=== PATIENT | male | born 1975 | race Caucasian/White ===

== ENCOUNTER 2016-09-17 11:37 | Emergency (ER) | payer OTHER ==
[2016-09-17 12:06] VITALS: TEMP 98.6
[2016-09-17] MEDS ORDERED: SODIUM CHLORIDE 0.9% 1,000 ML IV STA (12:14)
[2016-09-17 12:29] LABS: Basophils # (A) 0.1 k/uL (0-0.2); Basophils % (A) 1 %; CH 32.7; CHCM 36.3; Eosinophils # (A) 0.2 k/uL (0-0.7); Eosinophils % (A) 3 %; HCT 46.4 % (39.0-53.0); HDW 2.91; HGB 16.1 gm/dL (13.0-17.5); Luc # (Auto) 0.15; Luc % (Auto) 2; Lymphocytes # (A) 0.9 k/uL (1.0-4.8); Lymphocytes % (A) 11 %; MCH 31.4 pg (25.0-35.0); MCHC 34.7 g/dL (31.0-37.0); MCV 90.3 fL (80.0-100.0); Mean Platelet Volume 6.5; Monocytes # (A) 0.7 k/uL (0-1.0); Monocytes % (A) 9 %; Neutrophils # (A) 5.9 k/uL (1.3-7.7); Neutrophils % (A) 75 %; RBC 5.14 m/uL (4.30-5.90); RDW 13.3 % (11.5-15.5); WBC 7.8 k/uL (3.8-10.6); WBC (Perox) 6.95
[2016-09-17 12:30] VITALS: RESP 18
--- NOTE | 2016-09-17 12:42 | ED ---
General Adult HPI - General Chief complaint: Syncope Stated complaint: SYNCOPE, DIZZINESS, WEAKNESS Time Seen by Provider: 09/17/16 12:13 Source: patient, RN notes reviewed, old records reviewed Mode of arrival: wheelchair Limitations: no limitations - History of Present Illness Initial comments: This is a 41-year-old male to the ER for evaluation. This patient presents for evaluation of syncopal event. Patient states he does have history of syncope, also has history of psych but denies trauma from syncope. Patient is time denies complaints of headache chest pain Thorp of breath or abdominal pain. No change in medications. At this time patient has no symptoms - Related Data Home Medications Medication Instructions Recorded Confirmed Ibuprofen [Motrin] 800 mg PO DAILY PRN 08/13/16 09/17/16 Loratadine [Claritin] 10 mg PO DAILY 08/13/16 09/17/16 Venlafaxine HCl [Effexor] 37.5 mg PO BID 08/13/16 09/17/16 Allergies Allergy/AdvReac Type Severity Reaction Status Date / Time No Known Allergies Allergy Verified 09/17/16 12:38 Review of Systems ROS Statement: Those systems with pertinent positive or pertinent negative responses have been documented in the HPI. ROS Other: All systems not noted in ROS Statement are negative. Past Medical History Past Medical History: No Reported History Additional Past Medical History / Comment(s): SEE DR KULDIP Carrillo, HX OF LEFT ORBITAL FX,. Patient has a history of headaches and fainting for the past year History of Any Multi-Drug Resistant Organisms: None Reported Past Surgical History: Orthopedic Surgery, Tonsillectomy Additional Past Surgical History / Comment(s): 01/2015 LEFT ORBIT PLATES AT [facility], 11/25/08 pins and plates to left ankle after a fall injury, L knee arthroscopy, "wandering" left eye surgically repaired. Past Anesthesia/Blood Transfusion Reactions: No Reported Reaction Additional Past Anesthesia/Blood Transfusion Reaction / Comment(s): Pt has never received blood. Past Psychological History: Depression Additional Psychological History / Comment(s): STATES NO CURRENT MEDICATION Smoking Status: Current every day smoker Past Alcohol Use History: Occasional Additional Past Alcohol Use History / Comment(s): Patient is a smoker of one half to one pack of cigarettes per day since he was 13 years of age. He states he drinks 15 beers per week on Saturdays and Sundays only. Patient states he used cocaine a couple weeks ago. He is single he does not have any children. Past Drug Use History: Cocaine, Marijuana Additional Drug Use History / Comment(s): STATES PAST COCAINE USE, CURRENTLY USES MARIJUANA EVERY COUPLE DAYS - Past Family History Brother(s) Additional Family Medical History / Comment(s): He has one brother which he has no contact with. Father Family Medical History: COPD, Coronary Artery Disease (CAD) Additional Family Medical History / Comment(s): Father at age 73yrs. Mother Family Medical History: Seizure Disorder Additional Family Medical History / Comment(s): Mother was manic/depressive. She at age 51yrs. General Exam Limitations: no limitations General appearance: alert, in no apparent distress Head exam: Present: atraumatic, normocephalic, normal inspection Eye exam: Present: normal appearance, PERRL, EOMI. Absent: scleral icterus, conjunctival injection, periorbital swelling ENT exam: Present: normal exam, mucous membranes moist Neck exam: Present: normal inspection. Absent: tenderness, meningismus, lymphadenopathy Respiratory exam: Present: normal lung sounds bilaterally. Absent: respiratory distress, wheezes, rales, rhonchi, stridor Cardiovascular Exam: Present: regular rate, normal rhythm, normal heart sounds. Absent: systolic murmur, diastolic murmur, rubs, gallop, clicks GI/Abdominal exam: Present: soft, normal bowel sounds. Absent: distended, tenderness, guarding, rebound, rigid Extremities exam: Present: normal inspection, full ROM, normal capillary refill. Absent: tenderness, pedal edema, joint swelling, calf tenderness Back exam: Present: normal inspection Neurological exam: Present: alert, oriented X3, CN II-XII intact Psychiatric exam: Present: normal affect, normal mood Skin exam: Present: warm, dry, intact, normal color. 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 No significant diagnosis found EKG Findings - EKG Comments: EKG Findings:: EKG shows normal sinus at rate of 98, CO 144, QRS 80, QTC 426 Medical Decision Making - Medical Decision Making 23 ER for evaluation. Patient is currently a evaluation of syncopal event, history of multiple similar events. 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 Patient's labwork is normal and can be discharged home - Lab Data Result diagrams: 09/17/16 12:15 09/17/16 12:15 Lab Results 09/17/16 09/17/16 09/17/16 Range/Units 12:15 12:15 12:15 WBC 7.8 (3.8-10.6) k/uL RBC 5.14 (4.30-5.90) m/uL Hgb 16.1 (13.0-17.5) gm/dL Hct 46.4 (39.0-53.0) % MCV 90.3 (80.0-100.0) fL MCH 31.4 (25.0-35.0) pg MCHC 34.7 (31.0-37.0) g/dL RDW 13.3 (11.5-15.5) % Plt Count 223 (150-450) k/uL Neutrophils % 75 % Lymphocytes % 11 % Monocytes % 9 % Eosinophils % 3 % Basophils % 1 % Neutrophils # 5.9 (1.3-7.7) k/uL Lymphocytes # 0.9 L (1.0-4.8) k/uL Monocytes # 0.7 (0-1.0) k/uL Eosinophils # 0.2 (0-0.7) k/uL Basophils # 0.1 (0-0.2) k/uL PT (9.0-12.0) sec INR (<1.1) APTT (22.0-30.0) sec D-Dimer (<0.60) mg/L FEU Sodium 141 (137-145) mmol/L Potassium 3.8 (3.5-5.1) mmol/L Chloride 108 H (98-107) mmol/L Carbon Dioxide 25 (22-30) mmol/L Anion Gap 8 mmol/L BUN 14 (9-20) mg/dL Creatinine 1.00 (0.66-1.25) mg/dL Est GFR (MDRD) Af Amer >60 (>60 ml/min/1.73 sqM) Est GFR (MDRD) Non-Af >60 (>60 ml/min/1.73 sqM) Glucose 117 H (74-99) mg/dL Calcium 9.0 (8.4-10.2) mg/dL Phosphorus 2.9 (2.5-4.5) mg/dL Magnesium 1.8 (1.6-2.3) mg/dL Total Bilirubin 0.4 (0.2-1.3) mg/dL AST 30 (17-59) U/L ALT 68 (21-72) U/L Alkaline Phosphatase 59 (38-126) U/L Total Creatine Kinase 56 (55-170) U/L CK-MB (CK-2) 0.6 (0.0-2.4) ng/mL CK-MB (CK-2) Rel Index 1.1 Troponin I <0.012 (0.000-0.034) ng/mL Total Protein 6.1 L (6.3-8.2) g/dL Albumin 3.6 (3.5-5.0) g/dL 09/17/16 Range/Units 12:15 WBC (3.8-10.6) k/uL RBC (4.30-5.90) m/uL Hgb (13.0-17.5) gm/dL Hct (39.0-53.0) % MCV (80.0-100.0) fL MCH (25.0-35.0) pg MCHC (31.0-37.0) g/dL RDW (11.5-15.5) % Plt Count (150-450) k/uL Neutrophils % % Lymphocytes % % Monocytes % % Eosinophils % % Basophils % % Neutrophils # (1.3-7.7) k/uL Lymphocytes # (1.0-4.8) k/uL Monocytes # (0-1.0) k/uL Eosinophils # (0-0.7) k/uL Basophils # (0-0.2) k/uL PT 9.5 (9.0-12.0) sec INR 0.9 (<1.1) APTT 24.3 (22.0-30.0) sec D-Dimer 0.18 (<0.60) mg/L FEU Sodium (137-145) mmol/L Potassium (3.5-5.1) mmol/L Chloride (98-107) mmol/L Carbon Dioxide (22-30) mmol/L Anion Gap mmol/L BUN (9-20) mg/dL Creatinine (0.66-1.25) mg/dL Est GFR (MDRD) Af Amer (>60 ml/min/1.73 sqM) Est GFR (MDRD) Non-Af (>60 ml/min/1.73 sqM) Glucose (74-99) mg/dL Calcium (8.4-10.2) mg/dL Phosphorus (2.5-4.5) mg/dL Magnesium (1.6-2.3) mg/dL Total Bilirubin (0.2-1.3) mg/dL AST (17-59) U/L ALT (21-72) U/L Alkaline Phosphatase (38-126) U/L Total Creatine Kinase (55-170) U/L CK-MB (CK-2) (0.0-2.4) ng/mL CK-MB (CK-2) Rel Index Troponin I (0.000-0.034) ng/mL Total Protein (6.3-8.2) g/dL Albumin (3.5-5.0) g/dL Disposition Clinical Impression: Syncope and collapse, Vasovagal syncope Disposition: HOME SELF-CARE Condition: Good Referrals: Nilsa Rand MD [Primary Care Provider] - 1-2 days
[2016-09-17 12:50] LABS: INR 0.9 (<1.1); Partial Thromboplastin Time 24.3 sec (22.0-30.0); Prothrombin Time 9.5 sec (9.0-12.0)
[2016-09-17 13:01] LABS: ALT 68 U/L (21-72); AST 30 U/L (17-59); Alkaline Phosphatase 59 U/L (38-126); Anion Gap 8 mmol/L; Blood Urea Nitrogen 14 mg/dL (9-20); Carbon Dioxide 25 mmol/L (22-30); Chloride 108 mmol/L (98-107); Creatine Kinase 56 U/L (55-170); Glucose 117 mg/dL (74-99); Magnesium 1.8 mg/dL (1.6-2.3); Non-African American GFR(MDRD) >60 (>60 ml/min/1.73 sqM); Phosphorous 2.9 mg/dL (2.5-4.5); Potassium 3.8 mmol/L (3.5-5.1); Sodium 141 mmol/L (137-145); Total Bilirubin 0.4 mg/dL (0.2-1.3); Total Protein 6.1 g/dL (6.3-8.2)
[2016-09-17 13:13] LABS: Creatine Kinase MB 0.6 ng/mL (0.0-2.4); Troponin I <0.012 ng/mL (0.000-0.034)
[2016-09-17 13:30] VITALS: BP 133/69; PULSE 82
== END 2016-09-17 13:37 | disposition home or self-care (01) ==
LOC: EC 11:37
DX: R55 Syncope and collapse (principal); R53.1 Weakness; F32.9 Major depressive disorder, single episode, unspecified; F17.210 Nicotine dependence, cigarettes, uncomplicated; Z79.899 Other long term (current) drug therapy
CPT/HCPCS: 36415; 80053; 82550; 82553; 83735; 84100; 84484; 85025; 85379; 85610; 85730; 93005; 96360; 99284

== ENCOUNTER → 2016-10-15 | Outpatient (CLI) | payer OTHER ==
--- NOTE | 2016-10-15 17:36 | CT ---
EXAMINATION TYPE: CT cervical spine wo con DATE OF EXAM: 10/15/2016 COMPARISON: 01/18/2015 HISTORY: Opacity of lung, cough and difficulty breathing x [address] DLP: 650.00 mGycm Automated exposure control for dose reduction was used. TECHNIQUE: CT scan of the cervical spine is obtained without contrast, axial images are obtained, sa gittal and coronal reformatted images are also reviewed. FINDINGS: The cervical vertebra have normal alignment. Disc spaces are normal. Facet joints appear no rmal. Skull base is intact. There is no sign of spinal stenosis. IMPRESSION: Negative CT scan of the cervical spine. Prevertebral soft tissues are unremarkable. No ch aida compared to old exam.
== END | disposition home or self-care (01) ==
LOC: RADCTMAIN 17:00
PROVIDERS: ATTEND Family Medicine
DX: R91.8 Other nonspecific abnormal finding of lung field (principal)
CPT/HCPCS: 72125

== ENCOUNTER → 2016-10-23 | Outpatient (CLI) | payer OTHER ==
--- NOTE | 2016-10-23 09:44 | CT ---
EXAMINATION TYPE: CT chest wo con DATE OF EXAM: 10/23/2016 COMPARISON: NONE HISTORY: Abn CXR CT DLP: 433.7 mGycm. Automated Exposure Control for Dose Reduction was Utilized. TECHNIQUE: CT scan of the thorax is performed without IV contrast. FINDINGS: LUNGS: The lungs are grossly clear, there is no concerning parenchymal mass or nodule identified. T here is no pleural effusion or pneumothorax seen. The tracheobronchial tree is patent. MEDIASTINUM: Lack of IV contrast is noted to limit evaluation for mediastinal and especially hilar ad enopathy. There are no definitive greater than 1 cm hilar or mediastinal lymph nodes. No cardiomega ly or pericardial effusion is seen. OTHER: Chronic rib deformity on the right suggest previous trauma IMPRESSION: No abnormality identified
== END | disposition home or self-care (01) ==
LOC: RADCTMAIN 08:38
PROVIDERS: ATTEND Family Medicine
DX: R91.8 Other nonspecific abnormal finding of lung field (principal)
CPT/HCPCS: 71250

== ENCOUNTER 2016-11-10 12:26 | Observation (INO) | payer OTHER ==
[2016-11-10] MEDS ORDERED: RX INFO: IV CONTRAST WAS GIVEN 1 EACH MISC MISCELLANE PRN (12:56)
[2016-11-10] MEDS ORDERED: SODIUM CHLORIDE 0.9% 1,000 ML IV STA ×2 (12:57→17:17)
--- NOTE | 2016-11-10 12:59 | ED ---
General Adult HPI - General Chief complaint: Syncope Stated complaint: Syncope Time Seen by Provider: 11/10/16 12:43 Source: patient, RN notes reviewed Mode of arrival: ambulatory Limitations: no limitations - History of Present Illness Initial comments: Patient is a pleasant 41-year-old male presenting to the emergency department complaining of syncopal episode. Patient has had multiple syncopal episodes over the past year. Patient is scheduled to see a neurologist. Patient states he was watching the fireworks yesterday and his friend's porch when he passed out. Patient does admit he had a few beers last night. Patient states when he woke up this morning he has been having sharp chest discomfort that is mild and persistent. Discomfort feels better when the patient pushes on it. Patient feels somewhat tingly all over. No dyspnea. - Related Data Home Medications Medication Instructions Recorded Confirmed Ibuprofen [Motrin] 800 mg PO DAILY PRN 08/13/16 11/10/16 Loratadine [Claritin] 10 mg PO DAILY 08/13/16 11/10/16 Venlafaxine HCl [Effexor] 37.5 mg PO BID 08/13/16 11/10/16 Albuterol Inhaler [Ventolin Hfa 1 - 2 puff INHALATION RT-Q4H PRN 11/10/16 Inhaler] Allergies Allergy/AdvReac Type Severity Reaction Status Date / Time No Known Allergies Allergy Verified 11/10/16 12:34 Review of Systems ROS Statement: Those systems with pertinent positive or pertinent negative responses have been documented in the HPI. ROS Other: All systems not noted in ROS Statement are negative. Constitutional: Denies: fever Eyes: Denies: eye pain ENT: Denies: ear pain Respiratory: Denies: cough, dyspnea Cardiovascular: Reports: chest pain Endocrine: Denies: fatigue Gastrointestinal: Denies: abdominal pain Genitourinary: Denies: dysuria Musculoskeletal: Denies: back pain Skin: Denies: rash Neurological: Reports: paresthesias. Denies: weakness Past Medical History Past Medical History: No Reported History Additional Past Medical History / Comment(s): SEE DR KULDIP Alfaro&P, HX OF LEFT ORBITAL FX,. Patient has a history of headaches and fainting for the past year History of Any Multi-Drug Resistant Organisms: None Reported Past Surgical History: Orthopedic Surgery, Tonsillectomy Additional Past Surgical History / Comment(s): 01/2015 LEFT ORBIT PLATES AT [facility], 11/25/08 pins and plates to left ankle after a fall injury, L knee arthroscopy, "wandering" left eye surgically repaired. Past Anesthesia/Blood Transfusion Reactions: No Reported Reaction Additional Past Anesthesia/Blood Transfusion Reaction / Comment(s): Pt has never received blood. Past Psychological History: Depression Smoking Status: Current every day smoker Past Alcohol Use History: Occasional Past Drug Use History: Cocaine, Marijuana - Past Family History Brother(s) Additional Family Medical History / Comment(s): He has one brother which he has no contact with. Father Family Medical History: COPD, Coronary Artery Disease (CAD) Additional Family Medical History / Comment(s): Father at age 73yrs. Mother Family Medical History: Seizure Disorder Additional Family Medical History / Comment(s): Mother was manic/depressive. She at age 51yrs. General Exam Limitations: no limitations General appearance: alert, in no apparent distress Head exam: Present: atraumatic Eye exam: Present: normal appearance, PERRL ENT exam: Present: normal oropharynx Neck exam: Present: normal inspection. Absent: tenderness Respiratory exam: Present: normal lung sounds bilaterally Cardiovascular Exam: Present: regular rate, normal rhythm Expanded Peripheral pulses: 2+: Radial (R), Radial (L), Dorsalis Pedis (R), Dorsalis Pedis (L) GI/Abdominal exam: Present: soft. Absent: tenderness Extremities exam: Present: normal inspection. Absent: pedal edema, calf tenderness Neurological exam: Present: alert, CN II-XII intact. Absent: motor sensory deficit Psychiatric exam: Present: normal affect, normal mood Skin exam: Present: normal color Course Vital Signs 11/10/16 11/10/16 11/10/16 12:31 14:15 15:22 Temperature 99.5 F 98.6 F 97.9 F Pulse Rate 94 75 78 Respiratory 18 18 18 Rate Blood Pressure 113/68 114/68 118/70 O2 Sat by Pulse 95 96 94 L Oximetry EKG Findings - EKG Comments: EKG Findings:: Normal sinus rhythm 82. NJ 144. QRS 72. QT 352. QTC 411. Normal axis. Normal QRS. Normal ST-T. Medical Decision Making - Medical Decision Making Patient reevaluated and resting comfortably in bed. Patient updated on results and plan. Case was discussed with Dr. Alberts, who will admit for hospital call. - Lab Data Result diagrams: 11/10/16 13:01 11/10/16 13:01 Lab Results 11/10/16 11/10/16 11/10/16 Range/Units 13:01 13:01 13:01 WBC 8.0 (3.8-10.6) k/uL RBC 5.01 (4.30-5.90) m/uL Hgb 16.4 (13.0-17.5) gm/dL Hct 44.9 (39.0-53.0) % MCV 89.6 (80.0-100.0) fL MCH 32.7 (25.0-35.0) pg MCHC 36.5 (31.0-37.0) g/dL RDW 13.3 (11.5-15.5) % Plt Count 309 (150-450) k/uL Neutrophils % 67 % Lymphocytes % 21 % Monocytes % 8 % Eosinophils % 2 % Basophils % 1 % Neutrophils # 5.3 (1.3-7.7) k/uL Lymphocytes # 1.7 (1.0-4.8) k/uL Monocytes # 0.7 (0-1.0) k/uL Eosinophils # 0.1 (0-0.7) k/uL Basophils # 0.1 (0-0.2) k/uL PT (9.0-12.0) sec INR (<1.1) APTT (22.0-30.0) sec Sodium 146 H (137-145) mmol/L Potassium 4.7 (3.5-5.1) mmol/L Chloride 111 H (98-107) mmol/L Carbon Dioxide 23 (22-30) mmol/L Anion Gap 12 mmol/L BUN 9 (9-20) mg/dL Creatinine 1.20 (0.66-1.25) mg/dL Est GFR (MDRD) Af Amer >60 (>60 ml/min/1.73 sqM) Est GFR (MDRD) Non-Af >60 (>60 ml/min/1.73 sqM) Glucose 101 H (74-99) mg/dL Calcium 8.7 (8.4-10.2) mg/dL Total Bilirubin 0.4 (0.2-1.3) mg/dL AST 28 (17-59) U/L ALT 52 (21-72) U/L Alkaline Phosphatase 55 (38-126) U/L Total Creatine Kinase 226 H (55-170) U/L CK-MB (CK-2) 0.9 (0.0-2.4) ng/mL CK-MB (CK-2) Rel Index 0.4 Troponin I <0.012 (0.000-0.034) ng/mL Total Protein 5.7 L (6.3-8.2) g/dL Albumin 3.7 (3.5-5.0) g/dL Urine Color Urine Appearance (Clear) Urine pH (5.0-8.0) Ur Specific [place] (1.001-1.035) Urine Protein (Negative) Urine Glucose (UA) (Negative) Urine Ketones (Negative) Urine Blood (Negative) Urine Nitrite (Negative) Urine Bilirubin (Negative) Urine Urobilinogen (<2.0) mg/dL Ur Leukocyte Esterase (Negative) Serum Alcohol 59 mg/dL 11/10/16 11/10/16 Range/Units 13:01 15:15 WBC (3.8-10.6) k/uL RBC (4.30-5.90) m/uL Hgb (13.0-17.5) gm/dL Hct (39.0-53.0) % MCV (80.0-100.0) fL MCH (25.0-35.0) pg MCHC (31.0-37.0) g/dL RDW (11.5-15.5) % Plt Count (150-450) k/uL Neutrophils % % Lymphocytes % % Monocytes % % Eosinophils % % Basophils % % Neutrophils # (1.3-7.7) k/uL Lymphocytes # (1.0-4.8) k/uL Monocytes # (0-1.0) k/uL Eosinophils # (0-0.7) k/uL Basophils # (0-0.2) k/uL PT 10.5 (9.0-12.0) sec INR 1.0 (<1.1) APTT 23.1 (22.0-30.0) sec Sodium (137-145) mmol/L Potassium (3.5-5.1) mmol/L Chloride (98-107) mmol/L Carbon Dioxide (22-30) mmol/L Anion Gap mmol/L BUN (9-20) mg/dL Creatinine (0.66-1.25) mg/dL Est GFR (MDRD) Af Amer (>60 ml/min/1.73 sqM) Est GFR (MDRD) Non-Af (>60 ml/min/1.73 sqM) Glucose (74-99) mg/dL Calcium (8.4-10.2) mg/dL Total Bilirubin (0.2-1.3) mg/dL AST (17-59) U/L ALT (21-72) U/L Alkaline Phosphatase (38-126) U/L Total Creatine Kinase (55-170) U/L CK-MB (CK-2) (0.0-2.4) ng/mL CK-MB (CK-2) Rel Index Troponin I (0.000-0.034) ng/mL Total Protein (6.3-8.2) g/dL Albumin (3.5-5.0) g/dL Urine Color Yellow Urine Appearance Clear (Clear) Urine pH 5.0 (5.0-8.0) Ur Specific [place] 1.043 H (1.001-1.035) Urine Protein Negative (Negative) Urine Glucose (UA) Negative (Negative) Urine Ketones Negative (Negative) Urine Blood Negative (Negative) Urine Nitrite Negative (Negative) Urine Bilirubin Negative (Negative) Urine Urobilinogen <2.0 (<2.0) mg/dL Ur Leukocyte Esterase Negative (Negative) Serum Alcohol mg/dL - Radiology Data Radiology results: report reviewed (Computed tomography scan of chest negative for pulmonary embolism. Computed tomography scan the brain shows no acute intercranial process.) Disposition Clinical Impression: Syncope, Chest pain Disposition: ADMITTED IP TO THIS [facility] Referrals: Nilsa Rand MD [Primary Care Provider] - 1-2 days Decision Time: 15:34
[2016-11-10 13:17] LABS: Basophils # (A) 0.1 k/uL (0-0.2); Basophils % (A) 1 %; CH 31.9; CHCM 35.8; Eosinophils # (A) 0.1 k/uL (0-0.7); Eosinophils % (A) 2 %; HCT 44.9 % (39.0-53.0); HDW 2.78; HGB 16.4 gm/dL (13.0-17.5); Luc # (Auto) 0.19; Luc % (Auto) 2; Lymphocytes # (A) 1.7 k/uL (1.0-4.8); Lymphocytes % (A) 21 %; MCH 32.7 pg (25.0-35.0); MCHC 36.5 g/dL (31.0-37.0); MCV 89.6 fL (80.0-100.0); Mean Platelet Volume 6.4; Monocytes # (A) 0.7 k/uL (0-1.0); Monocytes % (A) 8 %; Neutrophils # (A) 5.3 k/uL (1.3-7.7); Neutrophils % (A) 67 %; RBC 5.01 m/uL (4.30-5.90); RDW 13.3 % (11.5-15.5)
[2016-11-10 13:21] LABS: Partial Thromboplastin Time 23.1 sec (22.0-30.0); Prothrombin Time 10.5 sec (9.0-12.0)
[2016-11-10 13:25] LABS: ALT 52 U/L (21-72); AST 28 U/L (17-59); Alcohol 59 mg/dL; Alkaline Phosphatase 55 U/L (38-126); Anion Gap 12 mmol/L; Blood Urea Nitrogen 9 mg/dL (9-20); Calcium 8.7 mg/dL (8.4-10.2); Carbon Dioxide 23 mmol/L (22-30); Chloride 111 mmol/L (98-107); Glucose 101 mg/dL (74-99); Non-African American GFR(MDRD) >60 (>60 ml/min/1.73 sqM); Potassium 4.7 mmol/L (3.5-5.1); Sodium 146 mmol/L (137-145); Total Bilirubin 0.4 mg/dL (0.2-1.3); Total Protein 5.7 g/dL (6.3-8.2)
[2016-11-10 13:35] LABS: Creatine Kinase 226 U/L (55-170)
[2016-11-10 13:48] LABS: Creatine Kinase MB 0.9 ng/mL (0.0-2.4); Troponin I <0.012 ng/mL (0.000-0.034)
--- NOTE | 2016-11-10 14:29 | CT ---
EXAMINATION TYPE: CT angio chest DATE OF EXAM: 11/10/2016 COMPARISON: NONE HISTORY: SOB, syncope CT DLP: 517.8 mGycm CONTRAST: CT chest with contrast and 3D reconstruction with MIP imaging is performed with IV Contrast, patient injected with 100 mL of Omnipaque 350. Contrast-enhanced CT of the chest was performed through the course of the pulmonary arteries with latonya g and mediastinal window settings submitted. 3D reconstruction with MIP imaging was also performed. PULMONARY ARTERIES: The pulmonary arteries and their major tributaries are patent. I do not see helene dence for sizable filling defect to suggest pulmonary embolic process. LUNGS: The lungs are clear and free of infiltrate. No evidence for atelectasis. No pulmonary nodule or mass is detected. No pleural effusion. MEDIASTINUM: Thoracic aorta is of normal caliber . The heart is not enlarged. No evidence for media stinal mass. No mediastinal lymph nodes greater than 1cm. HILAR STRUCTURES: No evidence for mass. No hilar lymph nodes greater than 1 cm. UPPER ABDOMEN: No significant abnormality is seen. IMPRESSION: 1. No evidence for Pulmonary embolism at this time.
--- NOTE | 2016-11-10 14:29 | CT ---
EXAMINATION TYPE: CT brain wo con DATE OF EXAM: 11/10/2016 COMPARISON: 01/18/2015 HISTORY: Syncope CT DLP: 869.[address] of the brain was performed. The ventricles, basal cisterns and sulci overlying the cerebral convexities demonstrate a normal appe arance. There is no evidence for intracranial hemorrhage or sulcal effacement. No mass effects are seen. Osseous calvarium is intact. If symptoms persist consider MRI as clinically warranted. IMPRESSION: 1. No acute intracranial process is seen at this time.
[2016-11-10 15:25] LABS: Appearance,Urine Clear (Clear); Bilirubin,Urine Negative (Negative); Glucose,Urine (UA) Negative (Negative); Ketones,Urine Negative (Negative); Leukocyte Esterase,Urine Negative (Negative); Nitrite,Urine Negative (Negative); Protein,Urine Negative (Negative); Specific Gravity,Urine 1.043 (1.001-1.035); UA Billing (MACRO vs. MICRO) CHEM; Urobilinogen,Urine <2.0 mg/dL (<2.0)
[2016-11-10] MEDS ORDERED: NALOXONE 0.4 MG/ML 1 ML VIAL IV PRN (15:34)
[2016-11-10] MEDS ORDERED: LORazepam 2 MG/ML SYRINGE IV PRN ×3 (15:38)
[2016-11-10] MEDS ORDERED: THIAMINE 100 MG/ML 2 ML VIAL IM STA (15:38)
[2016-11-10] MEDS ORDERED: SODIUM CHLORIDE 0.9% 1,000 ML IV SCH (15:45)
--- NOTE | 2016-11-10 17:16 | P.HPIM ---
History of Present Illness H&P Date: 11/10/16 Chief Complaint: syncope 41-year-old gentleman comes in to the hospital with complaints of syncopal episode that happened at night prior to admission. Patient states that he's had multiple episodes of syncope over the last year and half Patient apparently has been undergoing some workup for the same period of time. Initially was given a Holter monitor however did not function and some how did not follow-up with his supervisor [employer] or his primary care doctor at that time Patient has been seen by a neurologist in town States that he is in transition to finding a new neurologist for his complaint In the emergency room EKG did not reveal any conduction delays Patient describes the event as that it suddenly comes on. Patient feels hot and sweaty and thereafter looses consciousness briefly and regains without any confusion Patient's sister measured his blood pressure after one of these incidents which noted low blood pressure at that time Denies having any inciting events to this Currently lives in a intermediate has lost his job due to the above incident Review of Systems All systems: negative (Noted in HPI) Past Medical History Past Medical History: COPD, Memory Impairment, Osteoarthritis (OA) Additional Past Medical History / Comment(s): SEE DR CHRISTIANSEN H&P, HX OF fx's- LEFT ORBITAL ,ribs,lt hand, lt wrist as child, lt ankle. Patient has a history of headaches and fainting for the past year. some memory loss, p donates plasma 1-2 times a week. History of Any Multi-Drug Resistant Organisms: None Reported Past Surgical History: Adenoidectomy, Orthopedic Surgery, Tonsillectomy Additional Past Surgical History / Comment(s): 01/2015 LEFT ORBIT PLATES AT [facility], 11/25/08 pins and plates to left ankle after a fall injury, L knee arthroscopy, "wandering" left eye surgically repaired. TILT TABLE TEST 05-29. Past Anesthesia/Blood Transfusion Reactions: No Reported Reaction Additional Past Anesthesia/Blood Transfusion Reaction / Comment(s): Pt has never received blood. Smoking Status: Current every day smoker - Past Family History Brother(s) Additional Family Medical History / Comment(s): He has one brother which he has no contact with. Father Family Medical History: COPD, Coronary Artery Disease (CAD) Additional Family Medical History / Comment(s): Father at age 73yrs. Mother Family Medical History: Seizure Disorder Additional Family Medical History / Comment(s): Mother was manic/depressive. She at age 51yrs. Medications and Allergies Home Medications Medication Instructions Recorded Confirmed Type Ibuprofen [Motrin] 800 mg PO DAILY PRN 08/13/16 11/10/16 History Loratadine [Claritin] 10 mg PO DAILY 08/13/16 11/10/16 History Venlafaxine HCl [Effexor] 37.5 mg PO BID 08/13/16 11/10/16 History Albuterol Inhaler [Ventolin Hfa 1 - 2 puff INHALATION RT-Q4H PRN 11/10/16 History Inhaler] Allergies Allergy/AdvReac Type Severity Reaction Status Date / Time No Known Allergies Allergy Verified 11/10/16 12:34 Physical Exam Vitals: Vital Signs Temp Pulse Pulse Resp BP BP Pulse Ox 11/10/16 16:29 98.3 F 85 17 122/80 95 11/10/16 16:10 98.8 F 71 18 122/68 97 11/10/16 15:22 97.9 F 78 18 118/70 94 L 11/10/16 14:15 98.6 F 75 18 114/68 96 11/10/16 12:31 99.5 F 94 18 113/68 95 Intake and Output 11/10/16 11/10/16 11/10/16 06:59 14:59 22:59 Other: Weight 108.862 kg 108.4 kg Patient Weight 11/11/16 06:59 Weight 108.4 kg Physical exam Gen. appearance oriented 3 in no distress Neck is supple no JVD Lungs corse breath sounds good air movement Heart S1-S2 heard regular rate and rhythm no murmurs appreciated Abdomen is soft nontender no organomegaly bowel sounds are intact Neurologically cranial nerves II-12 grossly intact no focal motor or sensory deficits noted Skin no abnormalities appreciated Results CBC & Chem 7: 11/10/16 13:01 11/10/16 13:01 Labs: Abnormal Lab Results - Last 24 Hours (Table) 11/10/16 11/10/16 11/10/16 Range/Units 13:01 13:01 15:15 Sodium 146 H (137-145) mmol/L Chloride 111 H (98-107) mmol/L Glucose 101 H (74-99) mg/dL Total Creatine Kinase 226 H (55-170) U/L Total Protein 5.7 L (6.3-8.2) g/dL Ur Specific [place] 1.043 H (1.001-1.035) Assessment and Plan Plan: #1 syncope appears to be vasovagal in nature rule out cardiogenic causes #2 hypernatremia likely due to dehydration #3 ongoing tobacco use Number for underlying COPD #5 depression #6 atypical chest pain Plan Rule out ACS This time the vasovagal episode appeared to have a associated cardiac pain as well rule out acute coronary syndrome Patient has had some workup in the past. We'll obtain another echocardiogram Patient will need a Holter monitor. Continue inpatient or observational monitoring during the hospitalization if another episode does occur IV fluids to 75 mL per hour repeat labs in the morning
[2016-11-10] MEDS: THIAMINE 100 MG TAB PO SCH (17:25)
[2016-11-10] MEDS ORDERED: IBUPROFEN 800 MG TAB PO PRN (19:47)
[2016-11-10] MEDS: VENLAFAXINE HCL 37.5 MG TAB PO SCH (20:21)
[2016-11-10] MEDS: NICOTINE 14MG/24HR PATCH TRANSDERM SCH (21:23)
[2016-11-11] MEDS ORDERED: LORATADINE 10 MG TAB PO SCH (09:00)
--- NOTE | 2016-11-11 09:47 | ECHOF ---
Referral Reason:syncope MEASUREMENTS -------- HEIGHT: 182.9 cm WEIGHT: 108.0 kg BP: 98/63 RVIDd: 2.8 cm (< 3.3) IVSd: 1.2 cm (0.6 - 1.1) LVIDd: 4.9 cm (3.9 - 5.3) LVPWd: 1.1 cm (0.6 - 1.1) IVSs: 1.3 cm LVIDs: 3.9 cm LVPWs: 1.2 cm LA Diam: 3.8 cm (2.7 - 3.8) LAESV Index (A-L): 29.10 ml/m Ao Diam: 3.3 cm (2.0 - 3.7) AV Cusp: 1.9 cm (1.5 - 2.6) LA Diam: 4.1 cm (2.7 - 3.8) MV EXCURSION: 20.130 mm (> 18.000) MV EF SLOPE: 72 mm/s (70 - 150) EPSS: 0.3 cm MV E Omid: 0.89 m/s MV DecT: 192 ms MV A Omid: 0.66 m/s MV E/A Ratio: 1.34 RAP: 5.00 mmHg RVSP: 21.33 mmHg FINDINGS -------- Sinus rhythm. This was a technically adequate study. There is mild concentric left ventricular hypertrophy. Overall left ventricular systolic function is normal with, an EF between 55 - 60 %. The right ventricle is normal in size. LA is midly dilated 29-33ml/m2. The right atrial size is normal. The aortic valve is trileaflet, and appears structurally normal. No aortic stenosis or regurgitation. Mild mitral annular calcification present. Mild mitral regurgitation is present. Mild tricuspid regurgitation present. There is no evidence of pulmonary hypertension. The right ventricular systolic pressure, as measured by Doppler, is 21.33mmHg. Trace/mild (physiologic) pulmonic regurgitation. The aortic root size is normal. There is no pericardial effusion. CONCLUSIONS -------- 1. There is mild concentric left ventricular hypertrophy. 2. The aortic root size is normal. 3. There is no pericardial effusion. 4. Overall left ventricular systolic function is normal with, an EF between 55 - 60 %. 5. LA is midly dilated 29-33ml/m2. 6. Mild mitral annular calcification present. 7. Mild mitral regurgitation is present. 8. Mild tricuspid regurgitation present. 9. There is no evidence of pulmonary hypertension. 10. The right ventricular systolic pressure, as measured by Doppler, is 21.33mmHg. 11. Trace/mild (physiologic) pulmonic regurgitation. REGIONAL FACILITIES MANAGER: Debbie Harper RDCS
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
[2016-11-11] MEDS ORDERED: MULTIVITAMINS, THERA 1 EACH TAB PO SCH (12:00)
[2016-11-11] MEDS: NICOTINE 14MG/24HR PATCH TRANSDERM SCH (12:47)
[2016-11-11] MEDS: VENLAFAXINE HCL 37.5 MG TAB PO SCH (12:47)
[2016-11-11] MEDS: THIAMINE 100 MG TAB PO SCH (12:48)
--- NOTE | 2016-11-11 13:02 | ECHOS ---
DATE OF SERVICE: 11/11/2016 STRESS ECHOCARDIOGRAM INDICATION: Syncope BASELINE HEART RATE: 71 BASELINE BLOOD PRESSURE: 113/56 MAXIMUM HEART RATE: 153 MAXIMUM BLOOD PRESSURE: 210/59 85% MPHR: 150 100% MPHR: 177 METS: 9.0 MAXIMUM STAGE REACHED: III TOTAL EXERCISE TIME: 8:30 Baseline EKG shows sinus rhythm, normal axis, normal intervals. The patient exercised on Ezequiel protocol for a total of 8 minutes and 20 seconds achieve 9 METS, 86% of predicted maximum heart rate without chest pain or diagnostic ST- segment depression. Occasional PVC's were noted during exercise. Baseline echo shows normal left ventricular size and normal systolic function. Post- exercise, there is normal hyperdynamic response of all segments of myocardium noted. CONCLUSION: 1. Good exercise tolerance. 2. Negative stress test by EKG criteria. 3. Negative stress echo. MTDD
[2016-11-11 15:51] VITALS: BP 132/82; PULSE 68; RESP 18; TEMP 98.1
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
== END 2016-11-11 17:05 | disposition home or self-care (01) ==
LOC: EC 12:26 → 3OBS 15:34
PROVIDERS: ADMIT Internal Medicine; ATTEND Internal Medicine
DX: R55 Syncope and collapse (principal); R07.89 Other chest pain; R20.9 Unspecified disturbances of skin sensation; F32.9 Major depressive disorder, single episode, unspecified; F17.200 Nicotine dependence, unspecified, uncomplicated; Z82.49 Family history of ischemic heart disease and other diseases of the circulatory system; Z79.899 Other long term (current) drug therapy; J44.9 Chronic obstructive pulmonary disease, unspecified; M19.90 Unspecified osteoarthritis, unspecified site; E87.0 Hyperosmolality and hypernatremia
CPT/HCPCS: 96361 ×2; 96360; 96372; 99285; 36415; 93005; 93017; 93306; 93350; 80053; 82550; 82553; 84484 ×2; 85025; 85610; 85730; 81003; 80320; 70450; 71275; G0378 ×2; S4990 ×2; J3411; Q9967

== ENCOUNTER 2017-02-03 20:31 | Emergency (ER) | payer OTHER ==
[2017-02-03 20:39] VITALS: RESP 18
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
--- NOTE | 2017-02-03 21:34 | XR ---
EXAMINATION TYPE: XR elbow complete LT DATE OF EXAM: 02/03/2017 COMPARISON: NONE HISTORY: Pain TECHNIQUE: 3 views FINDINGS: I see no fracture nor dislocation. Joint spaces are normal. There is no sign of elbow joint effusion. IMPRESSION: Negative left elbow exam
[2017-02-03] MEDS ORDERED: ACET/COD 300 MG/30 MG STARTER PACK 6 TAB BTL PO STA (22:11)
[2017-02-03 22:21] VITALS: BP 144/92; PULSE 92; TEMP 97
== END 2017-02-03 22:21 | disposition home or self-care (01) ==
LOC: EC 20:31
DX: S00.83XA Contusion of other part of head, initial encounter (principal); H11.422 Conjunctival edema, left eye; M25.522 Pain in left elbow; F32.9 Major depressive disorder, single episode, unspecified; F17.200 Nicotine dependence, unspecified, uncomplicated; Z79.899 Other long term (current) drug therapy; Y04.2XXA Assault by strike against or bumped into by another person, initial encounter; Y92.009 Unspecified place in unspecified non-institutional (private) residence as the place of occurrence of the external cause
CPT/HCPCS: 70450; 70486; 72125; 99285

== ENCOUNTER 2017-06-27 19:12 | Emergency (ER) | payer OTHER ==
[2017-06-27 19:16] VITALS: TEMP 98
[2017-06-27 19:46] LABS: Basophils # (A) 0.1 k/uL (0-0.2); Basophils % (A) 1 %; Eosinophils # (A) 0.3 k/uL (0-0.7); Eosinophils % (A) 4 %; HCT 45.2 % (39.0-53.0); HGB 15.6 gm/dL (13.0-17.5); Lymphocytes # (A) 1.7 k/uL (1.0-4.8); Lymphocytes % (A) 24 %; MCH 31.2 pg (25.0-35.0); MCHC 34.6 g/dL (31.0-37.0); Mean Platelet Volume 6.6; Monocytes # (A) 0.5 k/uL (0-1.0); Monocytes % (A) 7 %; Neutrophils # (A) 4.3 k/uL (1.3-7.7); Neutrophils % (A) 62 %; Platelet Count 261 k/uL (150-450); RBC 5.02 m/uL (4.30-5.90); WBC 6.9 k/uL (3.8-10.6)
[2017-06-27 19:54] LABS: Glucose 97 mg/dL (74-99); INR 0.9 (<1.2); Partial Thromboplastin Time 22.1 sec (22.0-30.0); Prothrombin Time 9.4 sec (9.0-12.0)
[2017-06-27 19:55] LABS: ALT 66 U/L (21-72); AST 36 U/L (17-59); Albumin 3.7 g/dL (3.5-5.0); Alkaline Phosphatase 61 U/L (38-126); Anion Gap 9 mmol/L; Blood Urea Nitrogen 16 mg/dL (9-20); Calcium 9.3 mg/dL (8.4-10.2); Carbon Dioxide 26 mmol/L (22-30); Chloride 106 mmol/L (98-107); Magnesium 2.1 mg/dL (1.6-2.3); Sodium 141 mmol/L (137-145); Total Bilirubin 0.3 mg/dL (0.2-1.3)
[2017-06-27] MEDS ORDERED: ONDANSETRON ODT 4 MG TAB PO STA (19:56)
[2017-06-27 20:05] LABS: Creatine Kinase 50 U/L (55-170)
--- NOTE | 2017-06-27 20:05 | ED ---
Chest Pain HPI - General Chief Complaint: Chest Pain Stated Complaint: Chest pain Time Seen by Provider: 06/27/17 19:45 Source: patient, RN notes reviewed Mode of arrival: wheelchair Limitations: no limitations - History of Present Illness Initial Comments: 42-year-old male presents emergency Department chief complaint of chest pain. Patient states that his been sick for last 2 days and nausea vomiting diarrhea. He states that he was tired of laying around states it's hard to go to the store and states that he started having some chest discomfort. Denies any diaphoretic episodes. He denies shortness of breath. Patient states his chest pain was only a few seconds to minutes he is symptom-free. Patient had no prior cardiac history other than he states that he has "passing out spells". Patient states his been cleared by sample tester grinder and was seen in neurology. Patient states it he had tilt table testing and stress test last year. Patient states he is a smoker denies any history of hypertension, hyperlipidemia or diabetes. Patient denies any sick contacts - Related Data Home Medications Medication Instructions Recorded Confirmed Albuterol Inhaler [Ventolin Hfa 1 - 2 puff INHALATION RT-Q4H PRN 11/10/16 Inhaler] Ergocalciferol [Vitamin D2] 50,000 unit PO MO 02/03/17 06/27/17 Fenofibrate 54 mg PO DAILY 06/27/17 06/27/17 Loratadine [Claritin] 10 mg PO DAILY 06/27/17 06/27/17 traZODone HCL [Desyrel] 100 mg PO HS 06/27/17 06/27/17 Allergies Allergy/AdvReac Type Severity Reaction Status Date / Time No Known Allergies Allergy Verified 06/27/17 19:59 Review of Systems ROS Statement: Those systems with pertinent positive or pertinent negative responses have been documented in the HPI. ROS Other: All systems not noted in ROS Statement are negative. EKG Findings - EKG Comments: EKG Findings:: EKG performed at 19:20 normal sinus rhythm with a rate of 64. 142 QRS 78 QT/QTC 386/392 Past Medical History Past Medical History: COPD, Memory Impairment, Osteoarthritis (OA) Additional Past Medical History / Comment(s): SEE DR CHRISTIANSEN H&P, HX OF fx's- LEFT ORBITAL ,ribs,lt hand, lt wrist as child, lt ankle. Patient has a history of headaches and fainting for the past year. some memory loss, p donates plasma 1-2 times a week. History of Any Multi-Drug Resistant Organisms: None Reported Past Surgical History: Adenoidectomy, Orthopedic Surgery, Tonsillectomy Additional Past Surgical History / Comment(s): 01/2015 LEFT ORBIT PLATES AT [facility], 11/25/08 pins and plates to left ankle after a fall injury, L knee arthroscopy, "wandering" left eye surgically repaired. TILT TABLE TEST 05-29. Past Anesthesia/Blood Transfusion Reactions: No Reported Reaction Additional Past Anesthesia/Blood Transfusion Reaction / Comment(s): Pt has never received blood. Past Psychological History: Depression Smoking Status: Current every day smoker Past Alcohol Use History: Occasional Past Drug Use History: Cocaine, Marijuana - Past Family History Brother(s) Additional Family Medical History / Comment(s): He has one brother which he has no contact with. Father Family Medical History: COPD, Coronary Artery Disease (CAD) Additional Family Medical History / Comment(s): Father at age 73yrs. Mother Family Medical History: Seizure Disorder Additional Family Medical History / Comment(s): Mother was manic/depressive. She at age 51yrs. General Exam Limitations: no limitations General appearance: alert, in no apparent distress Head exam: Present: atraumatic, normocephalic, normal inspection Eye exam: Present: normal appearance, PERRL, EOMI. Absent: scleral icterus, conjunctival injection, periorbital swelling Respiratory exam: Present: normal lung sounds bilaterally. Absent: respiratory distress, wheezes, rales, rhonchi, stridor, chest wall tenderness Cardiovascular Exam: Present: regular rate, normal rhythm, normal heart sounds. Absent: systolic murmur, diastolic murmur, rubs, gallop, clicks GI/Abdominal exam: Present: soft, normal bowel sounds. Absent: distended, tenderness, guarding, rebound, rigid Course Vital Signs 06/27/17 19:14 Temperature 98 F Pulse Rate 76 Respiratory 18 Rate Blood Pressure 121/74 O2 Sat by Pulse 98 Oximetry Chest Pain MDM - MDM 42-year-old male present emergency department for multiple complaints. Patient had nausea vomiting diarrhea over the last few days. Patient had some chest pain that lasted a few seconds today is symptom-free at this time. EKG is unremarkable/unchanged from prior. Patient's had stress test approximately 6 months ago which was normal. Patient does have cocaine positive on drug screen. We discuss his cocaine abuse. Patient will be discharged at this time and follow-up was primary care physician. Disposition Clinical Impression: Nausea vomiting and diarrhea, Atypical chest pain, Cocaine abuse Disposition: HOME SELF-CARE Condition: Stable Instructions: Chest Pain (ED) Additional Instructions: Please return to the Emergency Department if symptoms worsen or any other concerns. Referrals: Nilsa Rand MD [Primary Care Provider] - 1-2 days Time of Disposition: 20:33
[2017-06-27] MEDS ORDERED: ASPIRIN 81 MG PO STA (20:06)
--- NOTE | 2017-06-27 20:12 | XR ---
EXAMINATION TYPE: XR chest 2V DATE OF EXAM: 06/27/2017 COMPARISON: 01/18/2015 HISTORY: Chest pain TECHNIQUE: Frontal and lateral views of the chest are obtained. FINDINGS: Heart and mediastinum are normal. Lungs are clear. Diaphragm is normal. Bony thorax is int act. IMPRESSION: Normal chest. No change.
[2017-06-27 20:17] LABS: Creatine Kinase MB 0.3 ng/mL (0.0-2.4); Troponin I <0.012 ng/mL (0.000-0.034)
[2017-06-27 20:26] LABS: Amphetamine Screen,Urine Not Detected (NotDetected); Barbiturate Screen,Urine Not Detected (NotDetected); Benzodiazepines Screen,Urine Not Detected (NotDetected); Cocaine Screen,Urine Detected (NotDetected); Methadone Screen, Urine Not Detected (NotDetected); Opiate Screen,Urine Not Detected (NotDetected); Oxycodone Screen, Urine Not Detected (NotDetected); Phencyclidine Screen,Urine Not Detected (NotDetected); Tricyclic Antidepressant,Urine Not Detected (NotDetected); Urn Cannabinoid Scrn Not Detected (NotDetected)
[2017-06-27 20:47] VITALS: BP 114/56; PULSE 68; RESP 16
== END 2017-06-27 20:46 | disposition home or self-care (01) ==
LOC: EC 19:12
DX: F14.10 Cocaine abuse, uncomplicated (principal); R07.9 Chest pain, unspecified; R11.2 Nausea with vomiting, unspecified; F32.9 Major depressive disorder, single episode, unspecified; F17.200 Nicotine dependence, unspecified, uncomplicated; Z79.899 Other long term (current) drug therapy
CPT/HCPCS: 36415; 71046; 80053; 80306; 82550; 82553; 83735; 84484; 85025; 85379; 85610; 85730; 93005; 99285

== ENCOUNTER 2017-10-03 13:41 | Inpatient (IN) | payer MEDICAID, OTHER ==
[2017-10-03] MEDS ORDERED: MAG HYDROX/AL HYDROX/SIMETH 30 ML, HYOSCYAMINE ELIXIR 10 ML, CIMETIDINE HCL 300 MG, LID... PO STA ×4 (14:07)
--- NOTE | 2017-10-03 14:07 | ED ---
General Adult HPI - General Chief complaint: Psychiatric Symptoms Stated complaint: Mental Health Time Seen by Provider: 10/03/17 13:45 Source: patient, police, EMS, RN notes reviewed Mode of arrival: EMS Limitations: no limitations - History of Present Illness Initial comments: This is a 42-year-old male who presents emergency department stating that he is having suicidal thoughts. Patient states she's an immense amount of stress. Patient states she was just released from long-term after being charged with domestic violence. Patient states he also is homeless. Patient states he misses his girlfriend and his girlfriend's daughter. Patient states he also is experiencing some burning in his chest he thought it was gastric reflux patient states he was dry heaving all morning because he was so upset. Patient denies any difficulty breathing or shortness of breath. Patient denies any diaphoretic episodes. Patient denies any recent fever chills or cough. - Related Data Home Medications Medication Instructions Recorded Confirmed Albuterol Inhaler [Ventolin Hfa 1 - 2 puff INHALATION RT-Q4H PRN 11/10/16 Inhaler] Ergocalciferol [Vitamin D2] 50,000 unit PO MO 02/03/17 10/03/17 Fenofibrate 54 mg PO DAILY 06/27/17 10/03/17 Loratadine [Claritin] 10 mg PO DAILY 06/27/17 10/03/17 traZODone HCL [Desyrel] 100 mg PO HS 06/27/17 10/03/17 Allergies Allergy/AdvReac Type Severity Reaction Status Date / Time No Known Allergies Allergy Verified 10/03/17 14:00 Review of Systems ROS Statement: Those systems with pertinent positive or pertinent negative responses have been documented in the HPI. ROS Other: All systems not noted in ROS Statement are negative. Past Medical History Past Medical History: COPD, Memory Impairment, Osteoarthritis (OA) Additional Past Medical History / Comment(s): SEE DR CHRISTIANSEN H&P, HX OF fx's- LEFT ORBITAL ,ribs,lt hand, lt wrist as child, lt ankle. Patient has a history of headaches and fainting for the past year. some memory loss, p donates plasma 1-2 times a week. History of Any Multi-Drug Resistant Organisms: None Reported Past Surgical History: Adenoidectomy, Orthopedic Surgery, Tonsillectomy Additional Past Surgical History / Comment(s): 01/2015 LEFT ORBIT PLATES AT [facility], 11/25/08 pins and plates to left ankle after a fall injury, L knee arthroscopy, "wandering" left eye surgically repaired. TILT TABLE TEST 05-29. Past Anesthesia/Blood Transfusion Reactions: No Reported Reaction Additional Past Anesthesia/Blood Transfusion Reaction / Comment(s): Pt has never received blood. Past Psychological History: Depression Smoking Status: Current every day smoker Past Alcohol Use History: Occasional Past Drug Use History: Cocaine, Marijuana - Past Family History Brother(s) Additional Family Medical History / Comment(s): He has one brother which he has no contact with. Father Family Medical History: COPD, Coronary Artery Disease (CAD) Additional Family Medical History / Comment(s): Father at age 73yrs. Mother Family Medical History: Seizure Disorder Additional Family Medical History / Comment(s): Mother was manic/depressive. She at age 51yrs. General Exam - General Exam Comments Initial Comments: GENERAL: Patient is well-developed and well-nourished. Patient is nontoxic and well- hydrated and is in no acute distress. ENT: Neck is soft and supple. No significant lymphadenopathy is noted. Oropharynx is clear. Moist mucous membranes. Neck has full range of motion without eliciting any pain. EYES: The sclera were anicteric and conjunctiva were pink and moist. Extraocular movements were intact and pupils were equal round and reactive to light. Eyelids were unremarkable. PULMONARY: Unlabored respirations. Good breath sounds bilaterally. No audible rales rhonchi or wheezing was noted. CARDIOVASCULAR: There is a regular rate and rhythm without any murmurs gallops or rubs. ABDOMEN: Soft and nontender with normal bowel sounds. No palpable organomegaly was noted. There is no palpable pulsatile mass. SKIN: Skin is clear with no lesions or rashes and otherwise unremarkable. NEUROLOGIC: Patient is alert and oriented x3. Cranial nerves II through XII are grossly intact. Motor and sensory are also intact. Normal speech, volume and content. Symmetrical smile. MUSCULOSKELETAL: Normal extremities with adequate strength and full range of motion. LYMPHATICS: No significant lymphadenopathy is noted PSYCHIATRIC: Patient states he is having suicidal thoughts. Limitations: no limitations Course Vital Signs 10/03/17 10/03/17 13:45 14:00 Temperature 98.4 F Pulse Rate 101 H 91 Respiratory 20 20 Rate Blood Pressure 167/101 151/86 O2 Sat by Pulse 96 97 Oximetry Medical Decision Making - Medical Decision Making EKG shows normal sinus rhythm at 89 bpm PA interval is 134 QRS is 76 QT interval 342 QTC is 416. Patient's EKG shows no ST segment elevation or depression or T wave abnormalities are noted. - Lab Data Result diagrams: 10/03/17 14:20 10/03/17 14:20 Lab Results 10/03/17 10/03/17 10/03/17 Range/Units 14:20 14:20 14:20 WBC 8.1 (3.8-10.6) k/uL RBC 4.99 (4.30-5.90) m/uL Hgb 15.8 (13.0-17.5) gm/dL Hct 44.3 (39.0-53.0) % MCV 88.8 (80.0-100.0) fL MCH 31.6 (25.0-35.0) pg MCHC 35.6 (31.0-37.0) g/dL RDW 13.0 (11.5-15.5) % Plt Count 291 (150-450) k/uL Neutrophils % 72 % Lymphocytes % 17 % Monocytes % 9 % Eosinophils % 1 % Basophils % 0 % Neutrophils # 5.8 (1.3-7.7) k/uL Lymphocytes # 1.4 (1.0-4.8) k/uL Monocytes # 0.7 (0-1.0) k/uL Eosinophils # 0.1 (0-0.7) k/uL Basophils # 0.0 (0-0.2) k/uL PT (9.0-12.0) sec INR (<1.2) APTT (22.0-30.0) sec Sodium 142 (137-145) mmol/L Potassium 3.9 (3.5-5.1) mmol/L Chloride 108 H (98-107) mmol/L Carbon Dioxide 22 (22-30) mmol/L Anion Gap 12 mmol/L BUN 12 (9-20) mg/dL Creatinine 0.98 (0.66-1.25) mg/dL Est GFR (CKD-EPI)AfAm >90 (>60 ml/min/1.73 sqM) Est GFR (CKD-EPI)NonAf >90 (>60 ml/min/1.73 sqM) Glucose 102 H (74-99) mg/dL Calcium 9.0 (8.4-10.2) mg/dL Magnesium 2.0 (1.6-2.3) mg/dL Total Bilirubin 0.8 (0.2-1.3) mg/dL AST 48 (17-59) U/L ALT 63 (21-72) U/L Alkaline Phosphatase 58 (38-126) U/L Total Creatine Kinase 1008 H (55-170) U/L CK-MB (CK-2) 0.6 (0.0-2.4) ng/mL CK-MB (CK-2) Rel Index 0.1 Troponin I <0.012 (0.000-0.034) ng/mL Total Protein 5.7 L (6.3-8.2) g/dL Albumin 3.7 (3.5-5.0) g/dL Urine Opiates Screen (NotDetected) Ur Oxycodone Screen (NotDetected) Urine Methadone Screen (NotDetected) Ur Propoxyphene Screen (NotDetected) Ur Barbiturates Screen (NotDetected) U Tricyclic Antidepress (NotDetected) Ur Phencyclidine Scrn (NotDetected) Ur Amphetamines Screen (NotDetected) U Methamphetamines Scrn (NotDetected) U Benzodiazepines Scrn (NotDetected) Urine Cocaine Screen (NotDetected) U Marijuana (THC) Screen (NotDetected) 10/03/17 10/03/17 Range/Units 14:20 14:20 WBC (3.8-10.6) k/uL RBC (4.30-5.90) m/uL Hgb (13.0-17.5) gm/dL Hct (39.0-53.0) % MCV (80.0-100.0) fL MCH (25.0-35.0) pg MCHC (31.0-37.0) g/dL RDW (11.5-15.5) % Plt Count (150-450) k/uL Neutrophils % % Lymphocytes % % Monocytes % % Eosinophils % % Basophils % % Neutrophils # (1.3-7.7) k/uL Lymphocytes # (1.0-4.8) k/uL Monocytes # (0-1.0) k/uL Eosinophils # (0-0.7) k/uL Basophils # (0-0.2) k/uL PT 9.8 (9.0-12.0) sec INR 1.0 (<1.2) APTT 23.0 (22.0-30.0) sec Sodium (137-145) mmol/L Potassium (3.5-5.1) mmol/L Chloride (98-107) mmol/L Carbon Dioxide (22-30) mmol/L Anion Gap mmol/L BUN (9-20) mg/dL Creatinine (0.66-1.25) mg/dL Est GFR (CKD-EPI)AfAm (>60 ml/min/1.73 sqM) Est GFR (CKD-EPI)NonAf (>60 ml/min/1.73 sqM) Glucose (74-99) mg/dL Calcium (8.4-10.2) mg/dL Magnesium (1.6-2.3) mg/dL Total Bilirubin (0.2-1.3) mg/dL AST (17-59) U/L ALT (21-72) U/L Alkaline Phosphatase (38-126) U/L Total Creatine Kinase (55-170) U/L CK-MB (CK-2) (0.0-2.4) ng/mL CK-MB (CK-2) Rel Index Troponin I (0.000-0.034) ng/mL Total Protein (6.3-8.2) g/dL Albumin (3.5-5.0) g/dL Urine Opiates Screen Not Detected (NotDetected) Ur Oxycodone Screen Not Detected (NotDetected) Urine Methadone Screen Not Detected (NotDetected) Ur Propoxyphene Screen Not Detected (NotDetected) Ur Barbiturates Screen Not Detected (NotDetected) U Tricyclic Antidepress Not Detected (NotDetected) Ur Phencyclidine Scrn Not Detected (NotDetected) Ur Amphetamines Screen Not Detected (NotDetected) U Methamphetamines Scrn Not Detected (NotDetected) U Benzodiazepines Scrn Not Detected (NotDetected) Urine Cocaine Screen Detected H (NotDetected) U Marijuana (THC) Screen Not Detected (NotDetected) Disposition Clinical Impression: Suicidal ideation, Depression, Cocaine abuse Disposition: ADMITTED IP TO THIS HOSP Referrals: Nilsa Rand MD [Primary Care Provider] - 1-2 days Time of Disposition: 15:45
[2017-10-03 14:29] LABS: Basophils % (A) 0 %; Eosinophils # (A) 0.1 k/uL (0-0.7); Eosinophils % (A) 1 %; HCT 44.3 % (39.0-53.0); HGB 15.8 gm/dL (13.0-17.5); Lymphocytes # (A) 1.4 k/uL (1.0-4.8); Lymphocytes % (A) 17 %; MCH 31.6 pg (25.0-35.0); MCHC 35.6 g/dL (31.0-37.0); MCV 88.8 fL (80.0-100.0); Mean Platelet Volume 6.5; Monocytes # (A) 0.7 k/uL (0-1.0); Monocytes % (A) 9 %; Neutrophils # (A) 5.8 k/uL (1.3-7.7); Neutrophils % (A) 72 %; Platelet Count 291 k/uL (150-450); RBC 4.99 m/uL (4.30-5.90); WBC 8.1 k/uL (3.8-10.6)
[2017-10-03 14:39] LABS: ALT 63 U/L (21-72); AST 48 U/L (17-59); Albumin 3.7 g/dL (3.5-5.0); Alkaline Phosphatase 58 U/L (38-126); Anion Gap 12 mmol/L; Blood Urea Nitrogen 12 mg/dL (9-20); Carbon Dioxide 22 mmol/L (22-30); Chloride 108 mmol/L (98-107); Glucose 102 mg/dL (74-99); Potassium 3.9 mmol/L (3.5-5.1); Sodium 142 mmol/L (137-145); Total Bilirubin 0.8 mg/dL (0.2-1.3); Total Protein 5.7 g/dL (6.3-8.2)
[2017-10-03 14:40] LABS: Prothrombin Time 9.8 sec (9.0-12.0)
[2017-10-03 14:43] LABS: Amphetamine Screen,Urine Not Detected (NotDetected); Barbiturate Screen,Urine Not Detected (NotDetected); Benzodiazepines Screen,Urine Not Detected (NotDetected); Cocaine Screen,Urine Detected (NotDetected); Methadone Screen, Urine Not Detected (NotDetected); Opiate Screen,Urine Not Detected (NotDetected); Oxycodone Screen, Urine Not Detected (NotDetected); Phencyclidine Screen,Urine Not Detected (NotDetected); Tricyclic Antidepressant,Urine Not Detected (NotDetected); Urn Cannabinoid Scrn Not Detected (NotDetected)
[2017-10-03 14:48] LABS: Creatine Kinase 1008 U/L (55-170)
--- NOTE | 2017-10-03 14:59 | XR ---
EXAMINATION TYPE: XR chest 2V DATE OF EXAM: 10/03/2017 COMPARISON: NONE HISTORY: Chest pain TECHNIQUE: Frontal and lateral views of the chest are obtained. FINDINGS: There is no focal air space opacity, pleural effusion, or pneumothorax seen. The cardiac silhouette size is within normal limits. The osseous structures are intact. IMPRESSION: No acute cardiopulmonary process.
[2017-10-03 15:01] LABS: Creatine Kinase MB 0.6 ng/mL (0.0-2.4); Troponin I <0.012 ng/mL (0.000-0.034)
[2017-10-03] MEDS ORDERED: LORazepam 1 MG TAB PO PRN (16:12)
[2017-10-03] MEDS ORDERED: MAGNESIUM HYDROXIDE 2,400 MG/10 ML CUP PO PRN (16:12)
[2017-10-03] MEDS ORDERED: MAG HYDROX/AL HYDROX/SIMETH 30 ML CUP PO PRN (16:12)
[2017-10-03] MEDS ORDERED: ACETAMINOPHEN TAB 325 MG TAB PO PRN (16:12)
[2017-10-03] MEDS ORDERED: ZIPRASIDONE 20 MG VIAL IM PRN (16:12)
[2017-10-03] MEDS ORDERED: ALBUTEROL INHALER 60 PUFF/8 GM INHALER INHALATION PRN (16:14)
[2017-10-03] MEDS ORDERED: LORazepam 2 MG/ML INJ IM PRN (16:15)
[2017-10-03] MEDS ORDERED: ERGOCALCIFEROL 50,000 UNIT CAP PO SCH (16:15)
[2017-10-03 16:22] LABS: Appearance,Urine Clear (Clear); Bilirubin,Urine Negative (Negative); Blood,Urine Negative (Negative); Color,Urine Yellow; Glucose,Urine (UA) Negative (Negative); Ketones,Urine Trace (Negative); Leukocyte Esterase,Urine Negative (Negative); Nitrite,Urine Negative (Negative); Protein,Urine Trace (Negative); Urobilinogen,Urine <2.0 mg/dL (<2.0)
[2017-10-03] MEDS: NICOTINE 14MG/24HR PATCH TRANSDERM SCH (17:18)
[2017-10-03] MEDS: traZODone HCL 100 MG TAB PO SCH (20:57)
--- NOTE | 2017-10-03 23:57 | CONS ---
CONSULTATION REASON FOR CONSULTATION: Advice regarding syncope and other medical issues requested by psychiatry. HISTORY OF PRESENT ILLNESS: This is a 42-year-old gentleman with past COPD, memory impairment, history of DJD, history of depression, being followed by Dr. Nilsa Rand in the outpatient setting was admitted for psychiatric evaluation. Patient also placed in the [facility]. The patient also had recurrent episodes of syncope apparently and was evaluated with a tilt-table test and other evaluations and seen by Neurology as well and all the findings are normal according to him. The patient apparently drinking heavily once in a while and the last drink was last Tuesday. There is no history of any fever, rigor, chills. No history of any headache. No history of seizures at this time. PAST MEDICAL HISTORY: History of DJD, COPD, remote history of cocaine, marijuana, polysubstance abuse, depression. MEDICATIONS: Prior to admission include: 1. Trazodone 100 mg q.h.s. 2. Claritin 10 mg daily. 3. Fenofibrate 54 mg daily. 4. Vitamin D2 50,000 Tuesday. 5. Albuterol inhaler 1-2 puffs q.4h p.r.n. ALLERGIES: None. FAMILY HISTORY: History of COPD CAD in the family. SOCIAL HISTORY: History of alcohol use, history of nicotine dependence. History of previous cocaine, THC. REVIEW OF SYSTEMS: ENT: No diminished hearing or vision. Otherwise mentioned earlier. Cardio system: No angina or palpitations. There is no cough or hemoptysis. GI no nausea or vomiting. no dysuria. No retention. Nervous System: As mentioned earlier. Allergy/ Immunology: No asthma or hayfever. Musculoskeletal as mentioned earlier. HEMATOLOGY/ ONCOLOGY: No history of anemia. Endocrine: No history of diabetes, hypothyroid. Constitutional: As mentioned earlier. Dermatology negative. Rheumatology negative. Psychiatric : As mentioned earlier. PHYSICAL EXAMINATION: The patient is alert and oriented times three. Pulse 97, blood pressure 137/84, orthostatic changes, respiration 18, temperature 98.4, pulse ox 97% on room air. HEENT: Conjunctivae normal. Oral mucosa moist. NECK is no jugular venous distention. No carotid bruit. No lymph node enlargement. CARDIOVASCULAR: S1, S2. No S3, no S4. RESPIRATORY: Breath sounds diminished in the bases. No rhonchi. No crackles. ABDOMEN is soft, nontender. No mass palpable. LEGS: No edema. No swelling. NERVOUS SYSTEM: Higher functions as mentioned earlier. Moves all 4 limbs. No focal motor or sensory deficits. Cranial nerves 2 thru 12 grossly intact. Moves all 4 limbs. The power is normal. No nystagmus. No diplopia. No sensory abnormalities. SKIN no ulcer, rash, or bleeding. LYMPHATICS: No lymph nodes palpable in the neck, axillae or groin. JOINTS: No active deforming arthropathy. LABS: CBC within normal limits. Glucose 102. UA noted. Drug screen is positive for cocaine. ASSESSMENT: 1. Recurrent syncope for possible vasovagal with previous negative evaluation outpatient. 2. Polysubstance abuse including alcohol, smoking, and cocaine. 3. Increased creatinine kinase with possibly mild rhabdomyolysis. 4. History of chronic obstructive pulmonary disease. 5. History of degenerative joint disease. 6. Adenoidectomy. 7. History of depression. 8. Orbital fracture. RECOMMENDATIONS/DISCUSSION: In this 43-year-old gentleman who presented with multiple complex medical issues , I would recommend to continue current management and symptomatic treatment. The patient had history of syncope but evaluated extensively in the outpatient setting, could be related to substance abuse including alcohol and cocaine. Otherwise I would recommend close followup and I would also recommend adequate fluid intake and patient also had mild rhabdomyolysis which could be followed up in the outpatient setting. We will follow the patient closely with you and please let me know if there is any change in the condition. Otherwise I recommend close follow up with primary physician in the outpatient setting which is Dr. Nilsa Rand and Juliet Sung. MMMICHAEL / MARCELN: [id number] / RADHA
[2017-10-04] MEDS: NICOTINE 14MG/24HR PATCH TRANSDERM SCH (08:56)
[2017-10-04] MEDS: LORATADINE 10 MG TAB PO SCH (08:56)
[2017-10-04] MEDS: FENOFIBRATE 54 MG TAB PO SCH (08:56)
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
[2017-10-04 14:28] VITALS: BMI 32.8
[2017-10-04] MEDS: traZODone HCL 100 MG TAB PO SCH (20:14)
[2017-10-05 06:15] VITALS: RESP 16
[2017-10-05] MEDS: FENOFIBRATE 54 MG TAB PO SCH (08:11)
[2017-10-05] MEDS: NICOTINE 14MG/24HR PATCH TRANSDERM SCH ×2 (08:11→20:07)
[2017-10-05] MEDS: LORATADINE 10 MG TAB PO SCH (08:11)
--- NOTE | 2017-10-05 10:21 | P.PN ---
Progress Note - Text Progress Note Date: 10/05/17 Patient was seen for a follow-up examination. He said he slept well last night , feels a little better, talk to his sister and his girlfriend who are all concerned about him. He realizes drinking is a major problem for him and will not do it again after discharge. He has been attending groups and socializes with peers and interacts with staff. This is rather an obese ambulatory white male with adequate hygiene. He is polite and cooperative. He does not show any psychomotor agitation or retardation. His speech is spontaneous relevant and goal-directed. His mood is mildly dysphoric to euthymic and affect is appropriate to the thought content. He continues to deny hallucinations and delusional thinking. He also denies suicide and homicide thoughts. He is well oriented with good memory concentration general knowledge etc. Plan: Continue trazodone, groups and other therapies. Consider early discharge.
[2017-10-05] MEDS: traZODone HCL 100 MG TAB PO SCH (20:06)
[2017-10-06 06:41] VITALS: BP 112/70; PULSE 69; TEMP 97.6
[2017-10-06] MEDS: FENOFIBRATE 54 MG TAB PO SCH (08:17)
[2017-10-06] MEDS: NICOTINE 14MG/24HR PATCH TRANSDERM SCH (08:17)
[2017-10-06] MEDS: LORATADINE 10 MG TAB PO SCH (08:17)
--- NOTE | 2017-10-06 09:34 | P.DS ---
Providers Date of admission: 10/03/17 15:54 Expected date of discharge: 10/06/17 Attending physician: Misael Melgar Consults: 10/03/17 16:12 Consult Physician Routine Consulting Provider: Dayana Go Consult Reason/Comments: Follow up H & P Do you want consulting provider notified?: Yes Primary care physician: [facility] Course: Patient had his psychiatric evaluation, physical examination and psychosocial evaluation. After psychiatric evaluation it was agreed for him to continue trazodone 100 mg at bedtime. His medications for physical problems where continued. Patient took his medications, attended groups, interacted with staff and peers and continued to feel well. He was able to talk to his girlfriend and apparently there getting back together and he plans on starting a new job on 10/10/2017. In view of all these it was agreed to discharge him. Condition on discharge: This is an obese ambulatory white male with good hygiene. He is polite friendly and cooperative. He does not show any psychomotor agitation or retardation. His speech is spontaneous relevant and goal-directed. His mood is cheerful and affect is appropriate. He denies thoughts of suicide and homicide, hallucinations and delusional thinking. He is well oriented with good memory concentration general fund of knowledge etc. His insight and judgment have improved. Diagnosis on discharge: Adjustment disorder, unspecified F 43.20. Alcohol use disorder severe F 10.20. 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 NKDA. History of COPD. History of ALLERGIC rhinitis. Patient was advised and agreed to take his medications as prescribed, not to drink alcohol or use drugs, to learn better coping skills through therapy, not to drive or operate missionary if he feels sleepy, to call his psychiatrist or therapist if he feels confused or become suicidal and if he cannot get hold of them to go to nearest ER. Patient Condition at Discharge: Good Plan - Discharge Summary Discharge Rx Participant: No New Discharge Prescriptions: New Mag Hydrox/Al Hydrox/Simeth [Maalox] 30 ml PO Q4HR PRN cup PRN Reason: Gi Upset Continue Albuterol Inhaler [Ventolin Hfa Inhaler] 1 - 2 puff INHALATION RT-Q4H PRN PRN Reason: Shortness Of Breath Ergocalciferol [Vitamin D2 (DRISDOL)] 50,000 unit PO MO traZODone HCL [Desyrel] 100 mg PO HS Loratadine [Claritin] 10 mg PO DAILY Fenofibrate Nanocrystallized [Fenofibrate] 48 mg PO DAILY Ibuprofen [Motrin] 800 mg PO TID PRN PRN Reason: Pain Discharge Medication List Albuterol Inhaler [Ventolin Hfa Inhaler] 1 - 2 puff INHALATION RT-Q4H PRN [History] Ergocalciferol [Vitamin D2 (DRISDOL)] 50,000 unit PO MO 02/03/17 [History] Loratadine [Claritin] 10 mg PO DAILY 06/27/17 [History] traZODone HCL [Desyrel] 100 mg PO HS 06/27/17 [History] Fenofibrate Nanocrystallized [Fenofibrate] 48 mg PO DAILY 10/04/17 [History] Ibuprofen [Motrin] 800 mg PO TID PRN 10/04/17 [History] Mag Hydrox/Al Hydrox/Simeth [Maalox] 30 ml PO Q4HR PRN cup 10/06/17 [Rx] Follow up Appointment(s)/Referral(s): Nilsa Rand MD [Primary Care Provider] - 1-2 days
== END 2017-10-06 12:48 | disposition home or self-care (01) | DRG 882 ==
LOC: EC 13:41 → 3MHU 15:54
PROVIDERS: ADMIT Psychiatry & Neurology Psychiatry; ATTEND Psychiatry & Neurology Psychiatry
DX: F43.20 Adjustment disorder, unspecified (principal); M62.82 Rhabdomyolysis; R45.851 Suicidal ideations; F32.9 Major depressive disorder, single episode, unspecified; E66.9 Obesity, unspecified; Z68.32 Body mass index [BMI] 32.0-32.9, adult; F10.10 Alcohol abuse, uncomplicated; F14.10 Cocaine abuse, uncomplicated; F17.200 Nicotine dependence, unspecified, uncomplicated; F60.9 Personality disorder, unspecified; F81.9 Developmental disorder of scholastic skills, unspecified; J44.9 Chronic obstructive pulmonary disease, unspecified; Z59.0 Homelessness; Z82.49 Family history of ischemic heart disease and other diseases of the circulatory system; Z82.5 Family history of asthma and other chronic lower respiratory diseases; Z81.8 Family history of other mental and behavioral disorders; Z81.1 Family history of alcohol abuse and dependence; Z62.810 Personal history of physical and sexual abuse in childhood; Z79.899 Other long term (current) drug therapy; R55 Syncope and collapse; Z71.6 Tobacco abuse counseling; J30.9 Allergic rhinitis, unspecified; Z65.3 Problems related to other legal circumstances
CPT/HCPCS: 36415; 71046; 80053; 80306; 81003; 82075; 82550; 82553; 83735; 84443; 84484; 85025; 85610; 85730; 93005; 99285

== ENCOUNTER 2018-07-03 10:54 | Emergency (ER) | payer OTHER ==
[2018-07-03 11:05] VITALS: BP 131/91; PULSE 95; RESP 18; TEMP 98.4
[2018-07-03] MEDS ORDERED: TOBRAMYCIN 0.3% OPHTH DROPS 5 ML BTL BOTH EYES STA (11:29)
--- NOTE | 2018-07-03 11:30 | ED ---
Eye Problem HPI - General Chief complaint: Eye Problems Stated complaint: eye discharge Time Seen by Provider: 07/03/18 11:15 Source: patient, RN notes reviewed Mode of arrival: ambulatory Limitations: no limitations - History of Present Illness Initial comments: 43-year-old male presents emergency department for bilateral eye irritation. Has been on for the last 3-4 days. Patient states he wakes up with his eyes crusted and is drainage. Patient states she's had no blurred vision no double vision. He states that his eyes feel irritated but has no other complaints denies any exposures no known ALLERGIES never had any like this in the past. - Related Data Home Medications Medication Instructions Recorded Confirmed Albuterol Inhaler [Ventolin Hfa 1 - 2 puff INHALATION RT-Q4H PRN 11/10/16 Inhaler] Ergocalciferol [Vitamin D2 50,000 unit PO MO 02/03/17 10/04/17 (DRISDOL)] Loratadine [Claritin] 10 mg PO DAILY 06/27/17 10/03/17 traZODone HCL [Desyrel] 100 mg PO HS 06/27/17 10/03/17 Fenofibrate Nanocrystallized 48 mg PO DAILY 10/04/17 10/04/17 [Fenofibrate] Ibuprofen [Motrin] 800 mg PO TID PRN 10/04/17 10/04/17 Previous Rx's Medication Instructions Recorded Mag Hydrox/Al Hydrox/Simeth 30 ml PO Q4HR PRN cup 10/06/17 [Maalox] Allergies Allergy/AdvReac Type Severity Reaction Status Date / Time No Known Allergies Allergy Verified 10/03/17 16:47 Review of Systems ROS Statement: Those systems with pertinent positive or pertinent negative responses have been documented in the HPI. ROS Other: All systems not noted in ROS Statement are negative. Past Medical History Past Medical History: COPD, Memory Impairment, Osteoarthritis (OA) Additional Past Medical History / Comment(s): SEE DR CHRISTIANSEN H&P, HX OF fx's- LEFT ORBITAL ,ribs,lt hand, lt wrist as child, lt ankle. Patient has a history of headaches and fainting for the past year. some memory loss, p donates plasma 1-2 times a week. History of Any Multi-Drug Resistant Organisms: None Reported Past Surgical History: Adenoidectomy, Orthopedic Surgery, Tonsillectomy Additional Past Surgical History / Comment(s): 01/2015 LEFT ORBIT PLATES AT [facility], 11/25/08 pins and plates to left ankle after a fall injury, L knee arthroscopy, "wandering" left eye surgically repaired. TILT TABLE TEST 05-29. Past Anesthesia/Blood Transfusion Reactions: No Reported Reaction Additional Past Anesthesia/Blood Transfusion Reaction / Comment(s): Pt has never received blood. Past Psychological History: Depression Smoking Status: Current every day smoker Past Alcohol Use History: Occasional Past Drug Use History: Marijuana - Past Family History Brother(s) Additional Family Medical History / Comment(s): He has one brother which he has no contact with. Father Family Medical History: COPD, Coronary Artery Disease (CAD) Additional Family Medical History / Comment(s): Father at age 73yrs. Mother Family Medical History: Seizure Disorder Additional Family Medical History / Comment(s): Mother was manic/depressive. She at age 51yrs. General Exam Limitations: no limitations General appearance: alert, in no apparent distress Head exam: Present: atraumatic, normocephalic, normal inspection Eye exam: Present: normal appearance, PERRL, EOMI, conjunctival injection ( Bilateral). Absent: scleral icterus, periorbital swelling ENT exam: Present: normal exam, normal oropharynx, mucous membranes moist, TM's normal bilaterally Neck exam: Present: normal inspection, full ROM. Absent: tenderness, meningismus, lymphadenopathy Respiratory exam: Present: normal lung sounds bilaterally. Absent: respiratory distress, wheezes, rales, rhonchi, stridor Cardiovascular Exam: Present: regular rate, normal rhythm, normal heart sounds. Absent: systolic murmur, diastolic murmur, rubs, gallop, clicks Course Vital Signs 07/03/18 11:02 Temperature 98.4 F Pulse Rate 95 Respiratory 18 Rate Blood Pressure 131/91 O2 Sat by Pulse 96 Oximetry Medical Decision Making - Medical Decision Making 43-year-old male presented for bilateral eye irritation. Patient has rectal conjunctivitis will be discharged with Tobrex patient will follow-up PCP and return for any worsening symptoms. Disposition Clinical Impression: Bacterial conjunctivitis Disposition: HOME SELF-CARE Condition: Stable Instructions (If sedation given, give patient instructions): Conjunctivitis (ED ) Additional Instructions: Use eyedrops 1 drop to both eyes every 4 hours for 7 days.Please return to the Emergency Department if symptoms worsen or any other concerns. Is patient prescribed a controlled substance at d/c from ED?: No Referrals: Nilsa Rand MD [Primary Care Provider] - 1-2 days Time of Disposition: 11:30
== END 2018-07-03 12:10 | disposition home or self-care (01) ==
LOC: EC 10:54
DX: H10.89 Other conjunctivitis (principal); J44.9 Chronic obstructive pulmonary disease, unspecified; F32.9 Major depressive disorder, single episode, unspecified; F17.200 Nicotine dependence, unspecified, uncomplicated; Z96.89 Presence of other specified functional implants; Z87.81 Personal history of (healed) traumatic fracture; Z79.899 Other long term (current) drug therapy
CPT/HCPCS: 99282

== ENCOUNTER 2018-10-12 17:54 | Emergency (ER) | payer OTHER ==
[2018-10-12] MEDS ORDERED: SODIUM CHLORIDE 0.9% 500 ML 500 ML IV STA (18:08)
[2018-10-12] MEDS ORDERED: LIDOCAINE 1% INJ 10MG/ML (20 ML MDV) SQ STA (18:09)
--- NOTE | 2018-10-12 18:15 | ED ---
General Adult HPI - General Chief complaint: Syncope Stated complaint: Syncope, Fall Time Seen by Provider: 10/12/18 18:01 Source: patient, RN notes reviewed, old records reviewed Mode of arrival: EMS Limitations: no limitations - History of Present Illness Initial comments: 43-year-old male patient with past medical history of syncope presents to ED after a syncopal episode. Patient was that he was sitting on his porch when he started abruptly he felt dizzy, fell down resulting laceration to his forehead. Patient notes that he is followed by neurology and has not had a syncopal episode approximately 3 months. At this time patient with complaint is localized pain at the laceration site on his forehead. Patient denies any chest pain shortness breath abdominal pain nausea vomiting or diarrhea. Patient denies any headache or changes in vision. Denies any pain in cervical spine. Patient denies any other complaints. Patient denies any use of blood thinners. Systemic: Pt denies fatigue, fever/chills, rash. Pt denies weakness, night sweats, weight loss. Neuro: Pt denies headache, visual disturbances, syncope or pre-syncope. HEENT: Pt denies ocular discharge or irritation, otalgia, rhinorrhea, pharyngitis or notable lymphadenopathy. Cardiopulmonary: Pt denies chest pain, SOB, heart palpitations, dyspnea on exertion. Abdominal/GI: Pt denies abdominal pain, n/v/d. : Pt denies dysuria, burning w/ urination, frequency/urgency. Denies new onset urinary or bowel incontinence. MSK: Pt denies myalgia, loss of strength or function in extremities. Neuro: Pt denies new onset weakness, paresthesias. - Related Data Home Medications Medication Instructions Recorded Confirmed Ibuprofen [Motrin] 800 mg PO TID PRN 10/04/17 10/12/18 Allergies Allergy/AdvReac Type Severity Reaction Status Date / Time No Known Allergies Allergy Verified 10/12/18 18:03 Review of Systems ROS Statement: Those systems with pertinent positive or pertinent negative responses have been documented in the HPI. ROS Other: All systems not noted in ROS Statement are negative. Past Medical History Past Medical History: COPD, Memory Impairment, Osteoarthritis (OA) Additional Past Medical History / Comment(s): SEE DR CHRISTIANSEN H&P, HX OF fx's- LEFT ORBITAL ,ribs,lt hand, lt wrist as child, lt ankle. Patient has a history of headaches and fainting for the past year. some memory loss, p donates plasma 1-2 times a week. History of Any Multi-Drug Resistant Organisms: None Reported Past Surgical History: Adenoidectomy, Orthopedic Surgery, Tonsillectomy Additional Past Surgical History / Comment(s): 01/2015 LEFT ORBIT PLATES AT [facility], 11/25/08 pins and plates to left ankle after a fall injury, L knee arthroscopy, "wandering" left eye surgically repaired. TILT TABLE TEST 05-29-15. Past Anesthesia/Blood Transfusion Reactions: No Reported Reaction Additional Past Anesthesia/Blood Transfusion Reaction / Comment(s): Pt has never received blood. Past Psychological History: Depression Smoking Status: Current every day smoker Past Alcohol Use History: Occasional Past Drug Use History: Marijuana - Past Family History Brother(s) Additional Family Medical History / Comment(s): He has one brother which he has no contact with. Father Family Medical History: COPD, Coronary Artery Disease (CAD) Additional Family Medical History / Comment(s): Father at age 73yrs. Mother Family Medical History: Seizure Disorder Additional Family Medical History / Comment(s): Mother was manic/depressive. She at age 51yrs. General Exam - General Exam Comments Initial Comments: Constitutional: NAD, AOX3, Pt has pleasant affect. HEENT: NC/AT, trachea midline, neck supple, no lymphadenopathy. Posterior pharynx non erythematous, without exudates. External ears appear normal, without discharge. Mucous membranes moist. Eyes PERRLA, EOM intact. There is no scleral icterus. No pallor noted. Cardiopulmonary: RRR, no murmurs, rubs or gallops, no JVD noted. Lungs CTAB in anterior and posterior hassan. No peripheral edema. Abdominal exam: Abdomen soft and non-distended. Abdomen non-tender to palpation in all 4 quadrants. Bowel sounds active in LLQ. No hepatosplenomegaly. No ecchymosis Neuro: CN II-XII intact. No nuchal rigidity. No raccon eyes, no cloud sign, no hemotympanum. No cervical spinal tenderness. MSK: 4 cm laceration noted on forehead, irrigated with 500mL NS. Approximated with 5 simple interrupted sutures. No posterior calf tenderness bilaterally, homans sign negative bilaterally. Posterior tibialis and radial pulse +2 bilaterally. Sensation intact in upper and lower extremities. Full active ROM in upper and lower extremities, 5/5 stregnth. Limitations: no limitations Course Vital Signs 10/12/18 10/12/18 10/12/18 17:55 20:03 21:00 Temperature 97.8 F Pulse Rate 93 115 H 94 Respiratory 18 20 18 Rate Blood Pressure 106/69 116/69 129/74 O2 Sat by Pulse 95 97 99 Oximetry Procedures - Laceration Laceration #1 Consent Obtained: verbal consent Indication: laceration Site: face Size (cm): 5 Description: linear Depth: simple, single layer Anesthetic Used: lidocaine 1% Anesthesia Technique: local infiltration Amount (mls): 6 Pre-repair: wound explored, irrigated extensively (500mL NS ), deep structures intact (no osseous, ligamentous involvement, no foreign body ) Type of Sutures: nylon Size of Sutures: 5-0 Number of Sutures: 5 Technique: simple, interrupted Patient Tolerated Procedure: well, no complications Medical Decision Making - Medical Decision Making 43-year-old male patient with past medical history of syncope presents to ED after a syncopal episode. Patient was that he was sitting on his porch when he started abruptly he felt dizzy, fell down resulting laceration to his forehead. Patient notes that he is followed by neurology and has not had a syncopal episode approximately 3 months. At this time patient with complaint is localized pain at the laceration site on his forehead. Patient denies any chest pain shortness breath abdominal pain nausea vomiting or diarrhea. Patient denies any headache or changes in vision. Denies any pain in cervical spine. Patient denies any other complaints. Patient denies any use of blood thinners. Patient vital signs stable, afebrile. Physical exam displayed: 4 cm laceration noted on forehead, irrigated with 500mL NS. Approximated with 5 simple interrupted sutures. Neurologic exam wnl. Laboratory investigation revealed mildly elevated white blood cell count of 11.3. Correlation states he thinks upper limits. D-dimer 0.59. CMP revealed mild hyponatremia of 136. Liver enzymes mildly elevated. UA noncompressive. EKG displayed normal sinus rhythm, however display S1Q3T3 pattern which is new for patient. CTA was ordered and was negative for acute process. CT of brain and cervical spine not display acute process. Troponin was negative 2. Patient will be discharged will follow up care provider as well as with neurology as well as cardiology in 1-2 days. Patient return here immediately if condition worsens. Patient return in 5-7 days for suture removal. Will monitor for signs symptoms of infection. Case discussed in depth with Dr. Tapia. Pt declined CXR. - Lab Data Result diagrams: 10/12/18 18:17 10/12/18 18:17 Lab Results 10/12/18 10/12/18 10/12/18 Range/Units 18:17 18:17 18:17 WBC 11.3 H (3.8-10.6) k/uL RBC 5.85 (4.30-5.90) m/uL Hgb 17.6 H (13.0-17.5) gm/dL Hct 53.3 H (39.0-53.0) % MCV 91.0 (80.0-100.0) fL MCH 30.0 (25.0-35.0) pg MCHC 33.0 (31.0-37.0) g/dL RDW 15.4 (11.5-15.5) % Plt Count 355 (150-450) k/uL Neutrophils % 62 % Lymphocytes % 22 % Monocytes % 9 % Eosinophils % 2 % Basophils % 1 % Neutrophils # 7.1 (1.3-7.7) k/uL Lymphocytes # 2.5 (1.0-4.8) k/uL Monocytes # 1.0 (0-1.0) k/uL Eosinophils # 0.3 (0-0.7) k/uL Basophils # 0.1 (0-0.2) k/uL PT 9.7 (9.0-12.0) sec INR 0.9 (<1.2) APTT 19.6 L (22.0-30.0) sec D-Dimer 0.59 (<0.60) mg/L FEU Sodium 136 L (137-145) mmol/L Potassium 4.0 (3.5-5.1) mmol/L Chloride 103 (98-107) mmol/L Carbon Dioxide 20 L (22-30) mmol/L Anion Gap 13 mmol/L BUN 15 (9-20) mg/dL Creatinine 1.16 (0.66-1.25) mg/dL Est GFR (CKD-EPI)AfAm 88 (>60 ml/min/1.73 sqM) Est GFR (CKD-EPI)NonAf 76 (>60 ml/min/1.73 sqM) Glucose 142 H (74-99) mg/dL POC Glucose (mg/dL) (75-99) mg/dL POC Glu Senior Electrical Design Engineer ID Calcium 9.0 (8.4-10.2) mg/dL Total Bilirubin 0.5 (0.2-1.3) mg/dL AST 75 H (17-59) U/L ALT 96 H (21-72) U/L Alkaline Phosphatase 59 (38-126) U/L Troponin I (0.000-0.034) ng/mL Total Protein 6.0 L (6.3-8.2) g/dL Albumin 3.8 (3.5-5.0) g/dL Urine Color Urine Appearance (Clear) Urine pH (5.0-8.0) Ur Specific Burt (1.001-1.035) Urine Protein (Negative) Urine Glucose (UA) (Negative) Urine Ketones (Negative) Urine Blood (Negative) Urine Nitrite (Negative) Urine Bilirubin (Negative) Urine Urobilinogen (<2.0) mg/dL Ur Leukocyte Esterase (Negative) Urine RBC (0-5) /hpf Urine Bacteria (None) /hpf Hyaline Casts (0-2) /lpf Urine Mucus (None) /hpf 10/12/18 10/12/18 10/12/18 Range/Units 18:17 18:27 21:00 WBC (3.8-10.6) k/uL RBC (4.30-5.90) m/uL Hgb (13.0-17.5) gm/dL Hct (39.0-53.0) % MCV (80.0-100.0) fL MCH (25.0-35.0) pg MCHC (31.0-37.0) g/dL RDW (11.5-15.5) % Plt Count (150-450) k/uL Neutrophils % % Lymphocytes % % Monocytes % % Eosinophils % % Basophils % % Neutrophils # (1.3-7.7) k/uL Lymphocytes # (1.0-4.8) k/uL Monocytes # (0-1.0) k/uL Eosinophils # (0-0.7) k/uL Basophils # (0-0.2) k/uL PT (9.0-12.0) sec INR (<1.2) APTT (22.0-30.0) sec D-Dimer (<0.60) mg/L FEU Sodium (137-145) mmol/L Potassium (3.5-5.1) mmol/L Chloride (98-107) mmol/L Carbon Dioxide (22-30) mmol/L Anion Gap mmol/L BUN (9-20) mg/dL Creatinine (0.66-1.25) mg/dL Est GFR (CKD-EPI)AfAm (>60 ml/min/1.73 sqM) Est GFR (CKD-EPI)NonAf (>60 ml/min/1.73 sqM) Glucose (74-99) mg/dL POC Glucose (mg/dL) 132 H (75-99) mg/dL POC Glu Senior Electrical Design Engineer ID Gregor Yvon Calcium (8.4-10.2) mg/dL Total Bilirubin (0.2-1.3) mg/dL AST (17-59) U/L ALT (21-72) U/L Alkaline Phosphatase (38-126) U/L Troponin I <0.012 <0.012 (0.000-0.034) ng/mL Total Protein (6.3-8.2) g/dL Albumin (3.5-5.0) g/dL Urine Color Urine Appearance (Clear) Urine pH (5.0-8.0) Ur Specific Burt (1.001-1.035) Urine Protein (Negative) Urine Glucose (UA) (Negative) Urine Ketones (Negative) Urine Blood (Negative) Urine Nitrite (Negative) Urine Bilirubin (Negative) Urine Urobilinogen (<2.0) mg/dL Ur Leukocyte Esterase (Negative) Urine RBC (0-5) /hpf Urine Bacteria (None) /hpf Hyaline Casts (0-2) /lpf Urine Mucus (None) /hpf 10/12/18 Range/Units 21:00 WBC (3.8-10.6) k/uL RBC (4.30-5.90) m/uL Hgb (13.0-17.5) gm/dL Hct (39.0-53.0) % MCV (80.0-100.0) fL MCH (25.0-35.0) pg MCHC (31.0-37.0) g/dL RDW (11.5-15.5) % Plt Count (150-450) k/uL Neutrophils % % Lymphocytes % % Monocytes % % Eosinophils % % Basophils % % Neutrophils # (1.3-7.7) k/uL Lymphocytes # (1.0-4.8) k/uL Monocytes # (0-1.0) k/uL Eosinophils # (0-0.7) k/uL Basophils # (0-0.2) k/uL PT (9.0-12.0) sec INR (<1.2) APTT (22.0-30.0) sec D-Dimer (<0.60) mg/L FEU Sodium (137-145) mmol/L Potassium (3.5-5.1) mmol/L Chloride (98-107) mmol/L Carbon Dioxide (22-30) mmol/L Anion Gap mmol/L BUN (9-20) mg/dL Creatinine (0.66-1.25) mg/dL Est GFR (CKD-EPI)AfAm (>60 ml/min/1.73 sqM) Est GFR (CKD-EPI)NonAf (>60 ml/min/1.73 sqM) Glucose (74-99) mg/dL POC Glucose (mg/dL) (75-99) mg/dL POC Glu Senior Electrical Design Engineer ID Calcium (8.4-10.2) mg/dL Total Bilirubin (0.2-1.3) mg/dL AST (17-59) U/L ALT (21-72) U/L Alkaline Phosphatase (38-126) U/L Troponin I (0.000-0.034) ng/mL Total Protein (6.3-8.2) g/dL Albumin (3.5-5.0) g/dL Urine Color Yellow Urine Appearance Clear (Clear) Urine pH 5.5 (5.0-8.0) Ur Specific Burt 1.026 (1.001-1.035) Urine Protein 1+ H (Negative) Urine Glucose (UA) Negative (Negative) Urine Ketones Negative (Negative) Urine Blood Negative (Negative) Urine Nitrite Negative (Negative) Urine Bilirubin Negative (Negative) Urine Urobilinogen <2.0 (<2.0) mg/dL Ur Leukocyte Esterase Negative (Negative) Urine RBC 1 (0-5) /hpf Urine Bacteria Rare H (None) /hpf Hyaline Casts 25 H (0-2) /lpf Urine Mucus Rare H (None) /hpf - EKG Data -: EKG Interpreted by Me (and dr tapia) EKG Comments: Ventricular rate 96, VA interval 148, QRS 70, QT/QTC 334/41. Normal sinus rhythm. S1Q3T3 noted. Disposition Clinical Impression: Syncope, Laceration Disposition: HOME SELF-CARE Condition: Stable Instructions (If sedation given, give patient instructions): Syncope (ED), Laceration (ED) Additional Instructions: Patient to adhere to previously discussed treatment plan and will take medication(s) as directed. Patient to follow up with PCP in 1-2 days. Patient to return to ED if symptoms do not improve. Follow-up with primary care provider in 1-2 days as well as cardiology and neurology in 1-2 days. Follow-up with previously established area operations director as well as neurologist. Return to ER immediately if condition worsens in any way. Please return for suture removal: Hand: 7-10 days Face: 5 days Chest/abdomen: 12-14 days Extremities: 7-10 days Scalp: 7 days Eyebrow: 5-7 days Foot/sole: 12-14 days Please monitor for signs and symptoms of infection including: redness, warmth, drainage, discharge. Please return to ED if these signs or symptoms occur, new signs or symptoms develop or if condition worsens in anyway. Is patient prescribed a controlled substance at d/c from ED?: No Referrals: Nilsa Rand MD [Primary Care Provider] - 1-2 days Bayron Del Angel MD [STAFF PHYSICIAN] - 1-2 days
[2018-10-12] MEDS ORDERED: WATER FOR IRRIG, STERILE 1,000 ML BTL IRRIGATION ONE (18:25)
[2018-10-12] MEDS ORDERED: DIPH,PERTUS(ACELL)TETVAC-LF 0.5 ML VIAL IM ONE (18:25)
[2018-10-12 18:29] LABS: Basophils # (A) 0.1 k/uL (0-0.2); Basophils % (A) 1 %; Eosinophils # (A) 0.3 k/uL (0-0.7); Eosinophils % (A) 2 %; HCT 53.3 % (39.0-53.0); HGB 17.6 gm/dL (13.0-17.5); Lymphocytes # (A) 2.5 k/uL (1.0-4.8); Lymphocytes % (A) 22 %; Mean Platelet Volume 6.7; Monocytes % (A) 9 %; Neutrophils # (A) 7.1 k/uL (1.3-7.7); Neutrophils % (A) 62 %; Platelet Count 355 k/uL (150-450); RBC 5.85 m/uL (4.30-5.90); RDW 15.4 % (11.5-15.5); WBC 11.3 k/uL (3.8-10.6)
[2018-10-12 18:31] LABS: Glucose,Whole Blood 132 mg/dL (75-99)
[2018-10-12 18:37] LABS: Albumin 3.8 g/dL (3.5-5.0); Total Bilirubin 0.5 mg/dL (0.2-1.3)
--- NOTE | 2018-10-12 18:53 | CT ---
EXAMINATION TYPE: CT brain kenrickine wo con DATE OF EXAM: 10/12/2018 COMPARISON: 02/03/2017 HISTORY: Syncope with head injury/laceration CT DLP: 1366.9 mGycm Automated exposure control for dose reduction was used. TECHNIQUE: CT scan of the head and cervical spine are performed without contrast. FINDINGS: Ventricles and sulci appear normal. There is no mass effect nor midline shift. There is n o sign of intracranial hemorrhage. Calvarium is intact. Cervical vertebra have normal spacing and alignment. Posterior elements are intact. Skull base is int act. There is no evidence of a fracture. Facet joints are intact. There is mild mucosal thickening in the ethmoid and left maxillary sinus. IMPRESSION: Negative CT scan of the brain. Negative CT scan cervical spine. No significant change compared to old exam.
[2018-10-12 19:04] LABS: D-Dimer 0.59 mg/L FEU (<0.60); INR 0.9 (<1.2); Prothrombin Time 9.7 sec (9.0-12.0)
[2018-10-12 19:21] LABS: Partial Thromboplastin Time 19.6 sec (22.0-30.0)
[2018-10-12] MEDS ORDERED: ACETAMINOPHEN TAB 325 MG TAB PO STA (19:34)
--- NOTE | 2018-10-12 20:49 | CT ---
EXAMINATION TYPE: CT chest angio for PE DATE OF EXAM: 10/12/2018 COMPARISON: 11/10/2016 HISTORY: SYNCOPE CT DLP: 1091.5 mGycm Automated exposure control for dose reduction was used. CONTRAST: CT Chest for pulmonary embolism performed with with IV Contrast, patient injected with 120 mL of Isov ue 370. FINDINGS: There are 3-D post processed images. The lungs are clear of consolidation. There is no evidence of a pulmonary mass. There is no pericardi al effusion. There is no pleural effusion. There are no hilar masses. There is no mediastinal adenopa thy. Heart size is normal. There is suboptimal contrast in the pulmonary arteries. I see no filling defect. The bony thorax is i ntact. Upper abdominal soft tissues are unremarkable. IMPRESSION: Negative exam. No evidence of pulmonary embolism. No change.
[2018-10-12 21:19] LABS: Appearance,Urine Clear (Clear); Bacteria,Urine Rare /hpf; Bilirubin,Urine Negative (Negative); Blood,Urine Negative (Negative); Color,Urine Yellow; Glucose,Urine (UA) Negative (Negative); Hyaline Casts,Urine 25 /lpf (0-2); Ketones,Urine Negative (Negative); Leukocyte Esterase,Urine Negative (Negative); Mucus,Urine Rare /hpf; Nitrite,Urine Negative (Negative); PH, Urine 5.5 (5.0-8.0); Protein,Urine 1+ (Negative); RBC,Urine 1 /hpf (0-5); Specific Gravity,Urine 1.026 (1.001-1.035); Urobilinogen,Urine <2.0 mg/dL (<2.0)
[2018-10-12 22:07] VITALS: BP 107/75; PULSE 92; RESP 20; TEMP 97.9
== END 2018-10-12 22:05 | disposition home or self-care (01) ==
LOC: EC 17:54
DX: S01.81XA Laceration without foreign body of other part of head, initial encounter (principal); R55 Syncope and collapse; D72.829 Elevated white blood cell count, unspecified; E87.1 Hypo-osmolality and hyponatremia; R74.8 Abnormal levels of other serum enzymes; F17.200 Nicotine dependence, unspecified, uncomplicated; Z23 Encounter for immunization; Z53.20 Procedure and treatment not carried out because of patient's decision for unspecified reasons; W01.198A Fall on same level from slipping, tripping and stumbling with subsequent striking against other object, initial encounter; Y93.89 Activity, other specified
CPT/HCPCS: 36415; 93005; 85379; 80053; 84484; 85025; 85610; 85730; 81001; 72125; 70450; 71275; 90715; 99285; 12013; 96360; 90471; J2001; Q9967

== ENCOUNTER → 2021-02-20 | Outpatient (CLI) | payer OTHER ==
[2021-02-20 19:32] LABS: HCT 48.1 % (39.6-50.0); HGB 16.1 g/dL (13.0-17.0); MCH 30.2 pg (27.0-32.0); MCHC 33.5 g/dL (32.0-37.0); MCV 90.2 fL (80.0-97.0); Mean Platelet Volume 9.8 fL (9.5-12.2); Platelet Count 299 X 10*3/uL (140-440); RBC 5.33 X 10*6/uL (4.40-5.60); WBC 9.54 X 10*3/uL (4.50-10.00)
== END | disposition home or self-care (01) ==
LOC: LABWHC1 12:17
PROVIDERS: ATTEND Surgery
DX: Z01.812 Encounter for preprocedural laboratory examination (principal)
CPT/HCPCS: 36415; 85027

== ENCOUNTER 2021-02-24 07:21 | Day surgery (SDC) | payer OTHER ==
[2021-02-20 13:11] VITALS: BMI 35.9
[~2021-02-24 07:21] MED LIST: ACETAMINOPHEN TAB 500 MG TAB PO PRN; DEXAMETHASONE SOD PHOSPHATE 4 MG/ML 1 ML VIAL IV ONE; HEPARIN SODIUM,PORCINE/PF 5,000 UNIT/0.5 ML SYRINGE SQ PRN; HYDROmorphone 0.5 MG/0.5 ML SYRINGE IVP PRN; LACTATED RINGERS 1,000 ML IV SCH; LIDOCAINE 1% (10MG/ML) FOR IV START INTRADERMA PRN; ONDANSETRON 4 MG/2 ML VIAL IVP ONE; SCOPOLAMINE 1.5MG/72HR PATCH TRANSDERM ONE; ceFAZolin 3 GM in SODIUM CHLORIDE 0.9% 100 ML IVPB PRN
[2021-02-24 08:17] LABS: Glucose,Whole Blood 104 mg/dL (75-99)
[2021-02-24] MEDS ORDERED: MIDAZOLAM 2 MG/2 ML VIAL IV ONE (08:45)
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
[2021-02-24] MEDS ORDERED: MIDAZOLAM 2 MG/2 ML VIAL ONE (09:56)
[2021-02-24] MEDS ORDERED: GLYCOPYRROLATE 0.2 MG/ML 2 ML VIAL ONE (09:56)
[2021-02-24] MEDS ORDERED: PROPOFOL 10 MG/ML 20 ML VIAL IV ONE (09:56)
[2021-02-24] MEDS ORDERED: ROPIVACAINE 5 MG/ML 30 ML VIAL ONE (09:56)
[2021-02-24] MEDS ORDERED: KETAMINE 10 MG/ML 20 ML VIAL ONE (09:56)
[2021-02-24] MEDS ORDERED: ALBUTEROL HFA INHALER INHALATION ONE (09:56)
[2021-02-24] MEDS ORDERED: NEOSTIGMINE 1 MG/ML 10 ML VIAL ONE (09:56)
[2021-02-24] MEDS ORDERED: SUCCINYLCHOLINE CHLORIDE VIAL 200 MG/10 ML VIAL IV ONE (09:56)
[2021-02-24] MEDS ORDERED: fentaNYL (PF) 50 MCG/ML 2 ML AMP ONE (09:56)
[2021-02-24] MEDS ORDERED: HYDROmorphone (PF) 1 MG/ML ONE (09:56)
[2021-02-24] MEDS ORDERED: LIDOCAINE 1% INJ 10MG/ML (20 ML MDV) ONE (09:56)
[2021-02-24] MEDS ORDERED: ROCURONIUM 10 MG/ML (5 ML VIAL) IV ONE (09:56)
[2021-02-24] MEDS ORDERED: SODIUM CHLORIDE 0.9% (PF) 10 ML VIAL ONE (09:56)
[2021-02-24] MEDS ORDERED: BUPIVACAINE (PF) 0.5% 30 ML VIAL SQ ONE (10:41)
--- NOTE | 2021-02-24 11:09 | P.OP ---
Date of Procedure: 02/24/21 Preoperative Diagnosis: Recurrent left inguinal hernia Postoperative Diagnosis: Recurrent left we'll hernia Cord lipoma Procedure(s) Performed: Laparoscopic robotic-assisted repair of left inguinal hernia Anesthesia: JOSE RAFAEL Surgeon: Matthew Tejeda Estimated Blood Loss (ml): 5 Pathology: other (Left cord lipoma) Condition: stable Disposition: PACU Description of Procedure: The patient's placed on the operating table in the supine position. The patient received general anesthesia. The patient's abdomen was prepped and draped in usual sterile fashion. The skin was anesthetized 1% local Xylocaine at the incision sites. Using an 11 blade a skin incision was made at the umbilicus. The fascia was grasped with a Mirna and then the peritoneal cavity was entered with the Veress needle. Position of the Veress needle was confirmed with a positive drop test. After adequate insufflation a 5 mm trocar was placed into the peritoneal cavity. The Laparoscope was placed the peritoneal cavity. And a robotic 8 mm trocar was placed in the right lateral position and then another 8 mm robotic trochars placed in the left lateral position. The original 5 mm trocar was exchanged for a 12 mm trocar. The patient was placed in reverse Trendelenburg and then the patient was docked to the robot. Next the peritoneum over top of the hernia was incised and then using blunt and sharp dissection and electrocautery the hernia sac was dissected free from the floor of the inguinal canal. The cord lipoma was dissected free and sent to pathology The hernia sac was completely reduced into the peritoneal cavity. And then using the Pro child life assistant mesh the hernia was repaired. The peritoneum was then sutured with 20V lock suture. The patient was then undocked the robot. The needle was withdrawn from the peritoneal cavity. The umbilical trocar site was closed with 0 Ethibond suture. The skin was closed interrupted 3-0 Monocryl suture. Dermabond dressing was applied. Patient was sent to recovery in stable condition.
[2021-02-24] MEDS ORDERED: LACTATED RINGERS 1,000 ML IV ONE ×2 (11:45)
[2021-02-24 11:53] VITALS: TEMP 97.6
[2021-02-24] MEDS ORDERED: ONDANSETRON 4 MG/2 ML VIAL ONE (12:55)
[2021-02-24] MEDS ORDERED: ONDANSETRON 4 MG/2 ML VIAL IVP ONE (12:57)
[2021-02-24 13:08] VITALS: RESP 16
--- NOTE | 2021-02-24 13:16 | P.ANPRN ---
Procedure Note - Anesthesia - Nerve Block Performed Bilateral Erector Spinae Time Out Performed: Yes (08:44) Date of Procedure: 02/24/21 Procedure Start Time: :44 Procedure Stop Time: 08:58 Location of Patient: PreOp Indication: Acute Post-Operative Pain, Requested by Surgeon (Dr Tejeda) Sedation Type: Sedate with meaningful contact maintained Preparation: Sterile Prep Position: Prone Catheter: None Needle Types: Pajunk Needle Gauge: 21 Ultrasound used to visualize needle placement: Yes Ultrasound used to observe medication spread: Yes Injectate: 0.5% Ropivacaine (see comment for volume) (15cc + 10cc PFNormal saline each side) Blood Aspirated: No Pain Paresthesia on Injection Noted: No Resistance on Injection: Normal Image Stored and Saved: Yes Events: Uneventful and Well Tolerated
[2021-02-24 13:43] VITALS: BP 124/86; PULSE 90
== END 2021-02-24 13:57 | disposition home or self-care (01) ==
LOC: OR 07:21
PROVIDERS: ATTEND Surgery
DX: K40.91 Unilateral inguinal hernia, without obstruction or gangrene, recurrent (principal); I10 Essential (primary) hypertension; J44.9 Chronic obstructive pulmonary disease, unspecified; F17.210 Nicotine dependence, cigarettes, uncomplicated; D17.6 Benign lipomatous neoplasm of spermatic cord; Z79.1 Long term (current) use of non-steroidal anti-inflammatories (NSAID); Z79.899 Other long term (current) drug therapy; Z82.49 Family history of ischemic heart disease and other diseases of the circulatory system
CPT/HCPCS: 49651; 64999; 88302; C1781; J2250; J0330; J1100; J2710; J2405; J2001; J3010; J1170 ×2; J2795; J2704; J1644

== ENCOUNTER → 2021-03-23 | Outpatient (CLI) | payer OTHER | END | disposition home or self-care (01) | LOC: LABWHC1 13:29 | PROVIDERS: ATTEND Family Medicine | DX: Z20.822 Contact with and (suspected) exposure to COVID-19 (principal) | CPT/HCPCS: U0003; C9803; U0005 ==

== ENCOUNTER 2022-04-01 08:38 | Emergency (ER) | payer OTHER ==
[2022-04-01] MEDS ORDERED: IBUPROFEN 600 MG STARTER PACK 4 TAB BTL PO STA (09:48)
[2022-04-01] MEDS ORDERED: SULFAMETH-TMP DS STARTER PACK 2 TAB BTL PO STA (09:48)
[2022-04-01] MEDS ORDERED: SULFAMETHOX-TMP 800-160MG 1 EACH TAB PO STA (09:50)
--- NOTE | 2022-04-01 09:50 | ED ---
Skin/Abscess/FB HPI - General Chief complaint: Skin/Abscess/Foreign Body Stated complaint: Lump on Thigh Time Seen by Provider: 04/01/22 09:37 Source: patient, RN notes reviewed Mode of arrival: ambulatory Limitations: no limitations - History of Present Illness Initial comments: This is a 46-year-old male who presents to the emergency department for what he believes is a skin tag and a cyst to the right thigh. States that these have been present for the last several days. Both the cyst and skin tag are becoming very uncomfortable due to his thighs rubbing together. He is not doing anything to treat his symptoms and he has not had anything like this in the past. He requests that the skin tag be removed. Denies any fevers, chills, sore throat, cough, dyspnea, chest pain, palpitations, abdominal pain, nausea, vomiting, diarrhea, back pain, or headaches. MD complaint: abscess/boil Onset/Timin -: days(s) - Related Data Home Medications Medication Instructions Recorded Confirmed lisinopriL [Zestril] 5 mg PO DAILY 02/20/21 04/14/21 Allergies Allergy/AdvReac Type Severity Reaction Status Date / Time No Known Allergies Allergy Verified 04/01/22 09:13 Review of Systems ROS Statement: Those systems with pertinent positive or pertinent negative responses have been documented in the HPI. ROS Other: All systems not noted in ROS Statement are negative. Past Medical History Past Medical History: COPD, Memory Impairment, Osteoarthritis (OA) Additional Past Medical History / Comment(s): SEE DR CHRISTIANSEN H&P, HX OF fx's- LEFT ORBITAL ,ribs,lt hand, lt wrist as child, lt ankle. Patient has a history of headaches and fainting for the past year. some memory loss, p donates plasma 1-2 times a week. History of Any Multi-Drug Resistant Organisms: None Reported Past Surgical History: Adenoidectomy, Orthopedic Surgery, Tonsillectomy Additional Past Surgical History / Comment(s): 01/2015 LEFT ORBIT PLATES AT [facility], 11/25/08 pins and plates to left ankle after a fall injury, L knee arthroscopy, "wandering" left eye surgically repaired. TILT TABLE TEST 05-29-15. Past Anesthesia/Blood Transfusion Reactions: No Reported Reaction Additional Past Anesthesia/Blood Transfusion Reaction / Comment(s): Pt has never received blood. Past Psychological History: Depression Smoking Status: Current every day smoker Past Alcohol Use History: Occasional Past Drug Use History: Marijuana - Past Family History Brother(s) Additional Family Medical History / Comment(s): He has one brother which he has no contact with. Father Family Medical History: COPD, Coronary Artery Disease (CAD) Additional Family Medical History / Comment(s): Father at age 73yrs. Mother Family Medical History: Seizure Disorder Additional Family Medical History / Comment(s): Mother was manic/depressive. She at age 51yrs. General Exam Limitations: no limitations General appearance: alert, in no apparent distress Head exam: Present: atraumatic, normocephalic, normal inspection Respiratory exam: Present: normal lung sounds bilaterally. Absent: respiratory distress, wheezes, rales, rhonchi, stridor Cardiovascular Exam: Present: regular rate, normal rhythm, normal heart sounds. Absent: systolic murmur, diastolic murmur, rubs, gallop, clicks Neurological exam: Present: alert, oriented X3, CN II-XII intact Psychiatric exam: Present: normal affect, normal mood Skin exam: Present: other (There is an erythematous skin tag to the right medial thigh and adjacent to this is an area of induration and tenderness. There are no obvious punctate areas.) Course Vital Signs 04/01/22 04/01/22 09:12 10:23 Temperature 97.8 F 98.0 F Pulse Rate 78 70 Respiratory 16 18 Rate Blood Pressure 146/94 146/91 O2 Sat by Pulse 96 96 Oximetry Medical Decision Making - Medical Decision Making This is a 46-year-old male who presents to the emergency department for a skin tag and abscess to the right thigh. The skin tag was clipped with a pair of scissors and the patient experienced no pain. No anesthetic was used. There is a palpable abscess just adjacent to this, however it is not yet ready to be drained. Prescription for Bactrim provided with the first dose administered in the emergency department. Advised he apply warm compresses and either use chaffing cream or use a barrier to reduce friction and further irritation. Return precautions reviewed in depth, the patient is instructed to return to the emergency department with any new, worsening, or concerning symptoms. Patient verbalized understanding. This case was discussed in detail with the attending ED physician. Presentation, findings, and treatment plan discussed in detail as well. Disposition Clinical Impression: Abscess, Skin tag Disposition: HOME SELF-CARE Instructions (If sedation given, give patient instructions): Abscess (ED) Additional Instructions: Return to the emergency department with any new, worsening, or concerning symptoms. Take the antibiotic as prescribed for 10 days. Apply warm compresses to this area. You can keep it covered with gauze or use chafing cream to reduce the friction. Follow up with your primary care provider in 1-2 days. Is patient prescribed a controlled substance at d/c from ED?: No Referrals: None,Stated [Primary Care Provider] - 1-2 days
[2022-04-01 10:27] VITALS: PULSE 70; RESP 18
[2022-04-01] MEDS: LIDOCAINE 4% CREAM 5 GM TUBE TOPICAL ONE ×2 (10:28→10:29)
[2022-04-01 10:30] VITALS: BP 146/91; TEMP 98
== END 2022-04-01 10:32 | disposition home or self-care (01) ==
LOC: EC 08:38
DX: L02.91 Cutaneous abscess, unspecified (principal); J44.9 Chronic obstructive pulmonary disease, unspecified; M19.90 Unspecified osteoarthritis, unspecified site; F32.A Depression, unspecified; F17.200 Nicotine dependence, unspecified, uncomplicated; F12.90 Cannabis use, unspecified, uncomplicated
CPT/HCPCS: 99282

== ENCOUNTER 2022-09-20 06:57 | Observation (INO) | payer OTHER ==
--- NOTE | 2022-09-20 07:35 | ED ---
General Adult HPI - General Chief complaint: Chest Pain Stated complaint: Dizziness Time Seen by Provider: 09/20/22 07:05 Source: EMS Mode of arrival: EMS Limitations: no limitations - History of Present Illness Initial comments: Dictation was produced using [employer] dictation software. please excuse any grammatical, word or spelling errors. Chief Complaint: 47-year-old male presents emergency Department chest pain History of Present Illness: 47-year-old male he denies any significant comorbidities. Patient has not seen a primary care doctor approximately one week. Patient provides history of present illness. States this morning he had some cereal when all of a sudden he had some chest pain and vomiting. States that the pain was like a throbbing sensation to his left lower anterior chest. Greater than his left upper extremity. Around the same time he started to have some vomiting. States that he did notice approximately 1 tablespoon of blood in his emesis. Patient states that his symptoms resolved after several minutes however he still left with some mild noticeable left anterior chest discomfort. Denies any history of heart attacks. Does have family history of it. Denies any shortness of breath. The ROS documented in this emergency department record has been reviewed and confirmed by me. Those systems with pertinent positive or negative responses have been documented in the HPI. All other systems are other negative and/or noncontributory. - Related Data Home Medications Medication Instructions Recorded Confirmed lisinopriL [Zestril] 5 mg PO DAILY 02/20/21 04/14/21 Allergies Allergy/AdvReac Type Severity Reaction Status Date / Time No Known Allergies Allergy Verified 04/01/22 09:13 Review of Systems ROS Statement: Those systems with pertinent positive or pertinent negative responses have been documented in the HPI. ROS Other: All systems not noted in ROS Statement are negative. Past Medical History Past Medical History: COPD, Memory Impairment, Osteoarthritis (OA) Additional Past Medical History / Comment(s): SEE DR CHRISTIANSEN H&P, HX OF fx's- LEFT ORBITAL ,ribs,lt hand, lt wrist as child, lt ankle. Patient has a history of headaches and fainting for the past year. some memory loss, p donates plasma 1-2 times a week. History of Any Multi-Drug Resistant Organisms: None Reported Past Surgical History: Adenoidectomy, Orthopedic Surgery, Tonsillectomy Additional Past Surgical History / Comment(s): 01/2015 LEFT ORBIT PLATES AT [facility], 11/25/08 pins and plates to left ankle after a fall injury, L knee arthroscopy, "wandering" left eye surgically repaired. TILT TABLE TEST 05-29-15. Past Anesthesia/Blood Transfusion Reactions: No Reported Reaction Additional Past Anesthesia/Blood Transfusion Reaction / Comment(s): Pt has never received blood. Past Psychological History: Depression Smoking Status: Current every day smoker Past Alcohol Use History: Occasional Past Drug Use History: Marijuana - Past Family History Brother(s) Additional Family Medical History / Comment(s): He has one brother which he has no contact with. Father Family Medical History: COPD, Coronary Artery Disease (CAD) Additional Family Medical History / Comment(s): Father at age 73yrs. Mother Family Medical History: Seizure Disorder Additional Family Medical History / Comment(s): Mother was manic/depressive. She at age 51yrs. General Exam - General Exam Comments Initial Comments: PHYSICAL EXAM: General Impression: Alert and oriented x3, not in acute distress HEENT: Normocephalic atraumatic, extra-ocular movements intact, pupils equal and reactive to light bilaterally, mucous membranes moist. Cardiovascular: Heart regular rate and rhythm Chest: Able to complete full sentences, no retractions, no tachypnea Abdomen: abdomen soft, non-tender, non-distended, no organomegaly Musculoskeletal: Pulses present and equal in all extremities, no peripheral edema Motor: no focal deficits noted Neurological: CN II-XII grossly intact, no focal motor or sensory deficits noted Skin: Intact with no visualized rashes Psych: Normal affect and mood Limitations: no limitations Course Vital Signs 09/20/22 09/20/22 07:00 08:39 Temperature 97.8 F Pulse Rate 88 86 Respiratory 18 18 Rate Blood Pressure 166/86 115/83 O2 Sat by Pulse 97 96 Oximetry EKG Findings - EKG Comments: EKG Findings:: My EKG interpretation: Ventricular rate 80, sinus rhythm,. Interval 149, QRS 86, QTC 31. No MS prolongation, no QTC prolongation, no ST or T-wave changes noted. Overall, this EKG is unremarkable Medical Decision Making - Medical Decision Making Was pt. sent in by a medical professional or institution (, PA, TELEVISION WRITER, urgent care, hospital, or custodial...) When possible be specific @ -No Did you speak to anyone other than the patient for history (EMS, parent, family, police, friend...)? What history was obtained from this source @ -No Did you review nursing and triage notes (agree or disagree)? Why? @ -I reviewed and agree with nursing and triage notes Were old charts reviewed (outside hosp., previous admission, EMS record, old EKG, old radiological studies, urgent care reports/EKG's, custodial records)? Report findings @ -No old charts were reviewed Differential Diagnosis (chest pain, altered mental status, abdominal pain women, abdominal pain men, vaginal bleeding, musculoskeletal, weakness, fever, dyspnea, syncope, headache, dizziness, GI bleed, back pain, seizure, CVA, palpatations, mental health)? @ -Differential Chest Pain: Stable Angina, Unstable Angina, STEMI, NSTEMI Aortic Dissection, Pneumothorax, Musculoskeletal, Esophageal Spasm GERD, Cholecystitis, Pancreatitis, Zoster, this is not meant to be an all-inclusive list. EKG interpreted by me (3pts min.). @ -See above X-rays interpreted by me (1pt min.). @ -Nonacute CT interpreted by me (1pt min.). @ -None done U/S interpreted by me (1pt. min.). @ -None done What testing was considered but not performed or refused? (CT, X-rays, U/S, labs)? Why? @ -None What meds were considered but not given or refused? Why? @ -None Did you discuss the management of the patient with other professionals (professionals i.e. , PA, TELEVISION WRITER, lab, RT, psych nurse, geriatric social work professor, triage clinician, teacher, collection officer, bilingual case manager)? Give summary @ -Discussed with Dr. zimmer regarding patient's labs, EKG, x-ray and clinical presentation. Patient be admitted to Dr. zimmer Was smoking cessation discussed for >3mins.? @ -No Was critical care preformed (if so, how long)? @ -No Were there social determinants of health that impacted care today? How? (Homeles sness, low income, unemployed, alcoholism, drug addiction, transportation, low edu. Level, literacy, decrease access to med. care, half-way, rehab)? @ -No Was there de-escalation of care discussed even if they declined (Discuss DNR or withdrawal of care, Hospice)? DNR status @ -No What co-morbidities impacted this encounter? (DM, HTN, Smoking, COPD, CAD, Cancer, CVA, ARF, Chemo, Hep., AIDS, mental health diagnosis, sleep apnea, morbid obesity)? @ -None Was patient admitted / discharged? Hospital course, mention meds given and route, prescriptions, significant lab abnormalities, going to OR and other pertinent info. @ -47 Year-old male presents emergency department for exertional chest pain. Vital signs upon arrival are within acceptable limits. EKG did not show any signs of ischemia or infarction. Patient's troponin is 0.028. Rest of vitals unremarkable. Patient will be admitted for serial troponins, cardiac monitoring and cardiology consultation Undiagnosed new problem with uncertain prognosis? @ -No Drug Therapy requiring intensive monitoring for toxicity (Heparin, Nitro, Insulin, Cardizem)? @ -No Were any procedures done? @ -No Diagnosis/symptom? Acute, or Chronic, or Acute on Chronic? Uncomplicated (without systemic symptoms) or Complicated (systemic symptoms)? @ -1. Chest pain, suspect ACS Side effects of treatment? @ -No Exacerbation, Progression, or Severe Exacerbation? @ -No Poses a threat to life or bodily function? How? (Chest pain, [place], [place], pneumonia, PE, COPD, DKA, ARF, appy, cholecystitis, CVA, Diverticulitis, Homicidal, Suicidal, threat to staff... and all critical care pts) @ -yes - Lab Data Result diagrams: 09/20/22 07:31 09/20/22 07:31 Lab Results 09/20/22 09/20/22 09/20/22 Range/Units 07:31 07:31 07:31 WBC 4.7 (3.8-10.6) k/uL RBC 4.85 (4.30-5.90) m/uL Hgb 14.9 (13.0-17.5) gm/dL Hct 43.3 (39.0-53.0) % MCV 89.2 (80.0-100.0) fL MCH 30.8 (25.0-35.0) pg MCHC 34.5 (31.0-37.0) g/dL RDW 14.1 (11.5-15.5) % Plt Count 199 (150-450) k/uL MPV 7.3 Neutrophils % 72 % Lymphocytes % 14 % Monocytes % 8 % Eosinophils % 3 % Basophils % 1 % Neutrophils # 3.4 (1.3-7.7) k/uL Lymphocytes # 0.7 L (1.0-4.8) k/uL Monocytes # 0.4 (0-1.0) k/uL Eosinophils # 0.2 (0-0.7) k/uL Basophils # 0.0 (0-0.2) k/uL PT 10.0 (9.0-12.0) sec INR 0.9 (<1.2) APTT 22.6 (22.0-30.0) sec Sodium 138 (137-145) mmol/L Potassium 4.0 (3.5-5.1) mmol/L Chloride 104 (98-107) mmol/L Carbon Dioxide 25 (22-30) mmol/L Anion Gap 9 mmol/L BUN 14 (9-20) mg/dL Creatinine 0.98 (0.66-1.25) mg/dL Est GFR (CKD-EPI)AfAm >90 (>60 ml/min/1.73 sqM) Est GFR (CKD-EPI)NonAf >90 (>60 ml/min/1.73 sqM) Glucose 166 H (74-99) mg/dL Calcium 8.5 (8.4-10.2) mg/dL Magnesium 2.0 (1.6-2.3) mg/dL Total Bilirubin 0.5 (0.2-1.3) mg/dL AST 32 (17-59) U/L ALT 47 (4-49) U/L Alkaline Phosphatase 60 (38-126) U/L Troponin I (0.000-0.034) ng/mL Total Protein 5.6 L (6.3-8.2) g/dL Albumin 3.3 L (3.5-5.0) g/dL Lipase 88 (23-300) U/L 09/20/22 Range/Units 07:31 WBC (3.8-10.6) k/uL RBC (4.30-5.90) m/uL Hgb (13.0-17.5) gm/dL Hct (39.0-53.0) % MCV (80.0-100.0) fL MCH (25.0-35.0) pg MCHC (31.0-37.0) g/dL RDW (11.5-15.5) % Plt Count (150-450) k/uL MPV Neutrophils % % Lymphocytes % % Monocytes % % Eosinophils % % Basophils % % Neutrophils # (1.3-7.7) k/uL Lymphocytes # (1.0-4.8) k/uL Monocytes # (0-1.0) k/uL Eosinophils # (0-0.7) k/uL Basophils # (0-0.2) k/uL PT (9.0-12.0) sec INR (<1.2) APTT (22.0-30.0) sec Sodium (137-145) mmol/L Potassium (3.5-5.1) mmol/L Chloride (98-107) mmol/L Carbon Dioxide (22-30) mmol/L Anion Gap mmol/L BUN (9-20) mg/dL Creatinine (0.66-1.25) mg/dL Est GFR (CKD-EPI)AfAm (>60 ml/min/1.73 sqM) Est GFR (CKD-EPI)NonAf (>60 ml/min/1.73 sqM) Glucose (74-99) mg/dL Calcium (8.4-10.2) mg/dL Magnesium (1.6-2.3) mg/dL Total Bilirubin (0.2-1.3) mg/dL AST (17-59) U/L ALT (4-49) U/L Alkaline Phosphatase (38-126) U/L Troponin I 0.028 (0.000-0.034) ng/mL Total Protein (6.3-8.2) g/dL Albumin (3.5-5.0) g/dL Lipase (23-300) U/L Disposition Clinical Impression: Chest pain Disposition: ADMITTED IP TO THIS [facility] Condition: Fair Referrals: None,Stated [Primary Care Provider] - 1-2 days Decision Time: 09:29
[2022-09-20 07:47] LABS: Basophils % (A) 1 %; Eosinophils # (A) 0.2 k/uL (0-0.7); Eosinophils % (A) 3 %; HCT 43.3 % (39.0-53.0); HGB 14.9 gm/dL (13.0-17.5); Lymphocytes # (A) 0.7 k/uL (1.0-4.8); Lymphocytes % (A) 14 %; MCH 30.8 pg (25.0-35.0); MCHC 34.5 g/dL (31.0-37.0); MCV 89.2 fL (80.0-100.0); Mean Platelet Volume 7.3; Monocytes # (A) 0.4 k/uL (0-1.0); Monocytes % (A) 8 %; Neutrophils # (A) 3.4 k/uL (1.3-7.7); Neutrophils % (A) 72 %; Platelet Count 199 k/uL (150-450); RBC 4.85 m/uL (4.30-5.90); RDW 14.1 % (11.5-15.5); WBC 4.7 k/uL (3.8-10.6)
--- NOTE | 2022-09-20 07:47 | XR ---
EXAMINATION TYPE: XR chest 2V DATE OF EXAM: 09/20/2022 COMPARISON: 10/03/2017 INDICATION: Chest pain and dizziness hemoptysis TECHNIQUE: Frontal and lateral views of the chest are obtained. FINDINGS: The heart size is normal. The pulmonary vasculature is normal. The lungs are clear. Tracheobronchial tree as visualized appears clear IMPRESSION: 1. No acute pulmonary process.
[2022-09-20 08:06] LABS: ALT 47 U/L (4-49); AST 32 U/L (17-59); African American GFR (CKD) >90 (>60 ml/min/1.73 sqM); Albumin 3.3 g/dL (3.5-5.0); Alkaline Phosphatase 60 U/L (38-126); Anion Gap 9 mmol/L; Blood Urea Nitrogen 14 mg/dL (9-20); Calcium 8.5 mg/dL (8.4-10.2); Carbon Dioxide 25 mmol/L (22-30); Chloride 104 mmol/L (98-107); Glucose 166 mg/dL (74-99); Lipase 88 U/L (23-300); Non-African American GFR(CKD) >90 (>60 ml/min/1.73 sqM); Sodium 138 mmol/L (137-145); Total Bilirubin 0.5 mg/dL (0.2-1.3); Total Protein 5.6 g/dL (6.3-8.2)
[2022-09-20 08:15] LABS: INR 0.9 (<1.2); Partial Thromboplastin Time 22.6 sec (22.0-30.0)
[2022-09-20] MEDS ORDERED: ASPIRIN 81 MG PO STA (08:30)
[2022-09-20] MEDS ORDERED: NICOTINE 21MG/24HR PATCH TRANSDERM STA (08:51)
[2022-09-20] MEDS ORDERED: NITROGLYCERIN SL TABS 0.4 MG TAB SUBLINGUAL PRN ×2 (09:26→13:19)
[2022-09-20] MEDS ORDERED: ALPRAZolam 0.5 MG TAB PO PRN ×2 (11:28→13:19)
--- NOTE | 2022-09-20 11:29 | P.HPIM ---
History of Present Illness This is a pleasant 47 years old male with multiple medical problems including COPD, memory impairment, osteoarthritis. Presents because of chest pain which started this morning while his eating history of he felt choking and he coughed some blood. And he was complaining of the same time of left-sided chest pain, felt like throbbing and hardburn, nonradiating described by the patient as 4/10 in nature. Associated with little shortness of breath but no cough. His pain is worse with deep breath and coughing. He vomited once this morning. He denies any abdominal pain or change in urine or bowel habits. No fever. No headache dizziness weakness or numbness He smokes half pack per day and he was counseled to quit and he agrees. He drinks beer Budweiser twice a week. He uses marijuana regularly and cocaine last month and patient was counseled to quit and he agrees Vital signs stable Labs reviewed showed an unremarkable CBC, INR, BMP and liver enzymes. Risks troponin is within the reference range 0.028 and the second one is mildly elevated 0.049. EKG showing normal sinus rhythm at [address]-T changes. Chest x-ray: No acute process Review of Systems Review of systems CONSTITUTIONAL: No fever, no malaise, no fatigue. HEENT: No recent visual problems or hearing problems. Denied any sore throat. CARDIOVASCULAR: No orthopnea, PND, no palpitations, no syncope. PULMONARY: No shortness of breath, no cough, no hemoptysis. GASTROINTESTINAL: No diarrhea, no nausea, no vomiting, no abdominal pain. Normoactive bowel sounds. NEUROLOGICAL: No headaches, no weakness, no numbness. HEMATOLOGICAL: Denies any bleeding or petechiae. GENITOURINARY: Denies any burning micturition, frequency, or urgency. MUSCULOSKELETAL/RHEUMATOLOGICAL: Denies any joint pain, swelling, or any muscle pain. ENDOCRINE: Denies any polyuria or polydipsia. Past Medical History Past Medical History: COPD, Memory Impairment, Osteoarthritis (OA) Additional Past Medical History / Comment(s): SEE DR CHRISTIANSEN H&P, HX OF fx's- LEFT ORBITAL ,ribs,lt hand, lt wrist as child, lt ankle. Patient has a history of headaches and fainting for the past year. some memory loss, p donates plasma 1-2 times a week. History of Any Multi-Drug Resistant Organisms: None Reported Past Surgical History: Adenoidectomy, Orthopedic Surgery, Tonsillectomy Additional Past Surgical History / Comment(s): 01/2015 LEFT ORBIT PLATES AT [facility], 11/25/08 pins and plates to left ankle after a fall injury, L knee arthroscopy, "wandering" left eye surgically repaired. TILT TABLE TEST 05-29-15. Past Anesthesia/Blood Transfusion Reactions: No Reported Reaction Additional Past Anesthesia/Blood Transfusion Reaction / Comment(s): Pt has never received blood. Past Psychological History: Depression Smoking Status: Current every day smoker Past Alcohol Use History: Occasional Past Drug Use History: Marijuana - Past Family History Brother(s) Additional Family Medical History / Comment(s): He has one brother which he has no contact with. Father Family Medical History: COPD, Coronary Artery Disease (CAD) Additional Family Medical History / Comment(s): Father at age 73yrs. Mother Family Medical History: Seizure Disorder Additional Family Medical History / Comment(s): Mother was manic/depressive. She at age 51yrs. Medications and Allergies Home Medications Medication Instructions Recorded Confirmed Type Ibuprofen [Motrin Ib] 800 mg PO Q8H PRN 09/20/22 09/20/22 History Allergies Allergy/AdvReac Type Severity Reaction Status Date / Time No Known Allergies Allergy Verified 09/20/22 10:07 Physical Exam Vitals: Vital Signs Temp Pulse Resp BP Pulse Ox 09/20/22 08:39 86 18 115/83 96 09/20/22 07:00 97.8 F 88 18 166/86 97 Intake and Output 09/19/22 09/20/22 09/20/22 22:59 06:59 14:59 Other: Weight 136.078 kg GENERAL: The patient is alert and oriented x3, not in any acute distress. Well developed, well nourished. HEENT: Pupils are round and equally reacting to light. EOMI. No scleral icterus. No conjunctival pallor. Normocephalic, atraumatic. No pharyngeal erythema. No thyromegaly. CARDIOVASCULAR: S1 and S2 present. No murmurs, rubs, or gallops. PULMONARY: Chest is clear to auscultation, no wheezing or crackles. ABDOMEN: Soft, nontender, nondistended, normoactive bowel sounds. No palpable organomegaly. MUSCULOSKELETAL: No joint swelling or deformity. EXTREMITIES: No cyanosis, clubbing, or pedal edema. NEUROLOGICAL: Gross neurological examination did not reveal any focal deficits. SKIN: No rashes. no petechiae. Results CBC & Chem 7: 09/20/22 07:31 09/20/22 07:31 Labs: Abnormal Lab Results - Last 24 Hours (Table) 09/20/22 09/20/22 09/20/22 Range/Units 07:31 07:31 09:54 Lymphocytes # 0.7 L (1.0-4.8) k/uL Glucose 166 H (74-99) mg/dL Troponin I 0.049 H* (0.000-0.034) ng/mL Total Protein 5.6 L (6.3-8.2) g/dL Albumin 3.3 L (3.5-5.0) g/dL Assessment and Plan Assessment: Chest pain with mildly elevated troponin, suspicious for non-STEMI Nicotine dependence COPD, no acute exacerbation History of osteoarthritis Substance abuse with marijuana and cocaine, he was counseled and he agrees Obesity with BMI of 39.6 Plan: Continue with aspirin Check echocardiogram Cardiology consult Check d-dimer and if elevated CTA of the local be ordered, risk of contrast are explained for the patient in details including ALLERGIC reaction and nephrotoxicity with possible permanent damage to the kidney and he verbalized understanding and acceptance Gentle hydration Labs and medication were reviewed.. Continue same treatment. Continue with symptomatic treatment. Resume home medication. Monitor labs and vitals. DVT and GI prophylaxis. Further recommendations as per clinical course of the isabella vizcaino DVT prophylaxis: heparin GI Prophylaxis: Pepcid PT/OT: Pending Prognosis is guarded d/w staff
[2022-09-20] MEDS ORDERED: HEPARIN SODIUM 1,000 UN/ML (10ML VL) IV PRN (12:43)
[2022-09-20] MEDS ORDERED: HEPARIN SODIUM 1,000 UN/ML (10ML VL) IV ONE (12:43)
[2022-09-20] MEDS ORDERED: HEPARIN SOD,PORK IN 0.45% NACL 25,000 UNIT in 0.45% NACL 1 250ML.BAG IV SCH (12:45)
[2022-09-20] MEDS ORDERED: ALPRAZolam 0.25 MG TAB PO PRN (13:19)
--- NOTE | 2022-09-20 13:26 | P.CRDCN ---
History of Present Illness History of present illness: HISTORY OF PRESENT ILLNESS: This is a 47-year-old male with a past medical history significant for nicotine dependence, daily marijuana use, and frequent alcohol use. Patient does not follow with a payroll services analyst. We have been asked to see the patient in consultation for chest pain. Patient examined at the bedside. Patient states this morning he was eating breakfast and shortly afterwards he started to cough up blood. He states after this happened he develops chest pain in the middle of his chest and felt sweaty. He came to the emergency room for further eval uation. At the time of examination, the patient denies chest pain or pressure. He denies shortness of breath. Patient denies any previous cardiac workup. He denies a known history of coronary artery disease. The patient states he drinks 15-16 beers 2-3 times a week and smokes marijuana on a daily basis. He is also a daily cigarette smoker. * EKG reveals sinus mechanism with no signs of acute ischemia * Chest xray negative for acute process * Laboratory data: WBC 4.7. Hemoglobin 14.9. Pleasant, 199. D-dimer 0.33. Sodium 138. Potassium 4.0. B UN 14. Creatinine 0.98. Troponin 0.028. 0.049. 0.048. * Current home cardiac medications include none REVIEW OF SYSTEMS: At the time of my exam: CONSTITUTIONAL: Denies fever or chills. HEENT: Denies blurred vision, vision changes, or eye pain. Denies hemoptysis CARDIOVASCULAR: Denies chest pain. Denies orthopnea. Denies PND. Denies palpitations RESPIRATORY: Denies shortness of breath. GASTROINTESTINAL: Denies abdominal pain. Denies nausea or vomiting. HEMATOLOGIC: Denies bleeding disorders. GENITOURINARY: Denies any blood in urine. SKIN: Denies pruitis. Denies rash. PHYSICAL EXAM: VITAL SIGNS: Reviewed. GENERAL: Well-developed in no acute distress. HEENT: Head is normocephalic. Pupils are equal, round. Sclerae anicteric. Mucous membranes of the mouth are moist. Neck supple. No JVD or thyromegaly LUNGS: Respirations even and unlabored. Lungs essentially clear to auscultation bilaterally. HEART: Regular rate and rhythm. S1 and S2 heard. ABDOMEN: Soft. Nondistended. Nontender. EXTREMITIES: Normal range of motion. No clubbing or cyanosis. Peripheral pulses intact. No lower extremity edema NEUROLOGIC: Awake and alert. Oriented x 3. ASSESSMENT: Chest pain with mildly elevated troponins, rule out coronary artery disease Nicotine dependence Daily marijuana use Frequent alcohol use, patient drinks 15-16 beers 2-3 times a week History of cocaine use Morbid obesity: BMI 39.6 PLAN: Obtain 2D echo to assess cardiac structure and function Begin aspirin, atorvastatin, and metoprolol Begin IV heparin Trend troponins Abstinence from alcohol and drugs recommended Smoking cessation encouraged Nothing by mouth at midnight Patient undergo cardiac catheterization tomorrow with Dr. Hernandez Further recommendations pending patient's course Nurse practitioner note has been reviewed by physician. Signing provider agrees with the documented findings, assessment, and plan of care. Past Medical History Past Medical History: COPD, Memory Impairment, Osteoarthritis (OA) Additional Past Medical History / Comment(s): SEE DR CHRISTIANSEN H&P, HX OF fx's- LEFT ORBITAL ,ribs,lt hand, lt wrist as child, lt ankle. Patient has a history of headaches and fainting for the past year. some memory loss, p donates plasma 1-2 times a week. History of Any Multi-Drug Resistant Organisms: None Reported Past Surgical History: Adenoidectomy, Orthopedic Surgery, Tonsillectomy Additional Past Surgical History / Comment(s): 01/2015 LEFT ORBIT PLATES AT [facility], 11/25/08 pins and plates to left ankle after a fall injury, L knee arthroscopy, "wandering" left eye surgically repaired. TILT TABLE TEST 05-29-15. Past Anesthesia/Blood Transfusion Reactions: No Reported Reaction Additional Past Anesthesia/Blood Transfusion Reaction / Comment(s): Pt has never received blood. Past Psychological History: Depression Smoking Status: Current every day smoker Past Alcohol Use History: Occasional Past Drug Use History: Marijuana - Past Family History Brother(s) Additional Family Medical History / Comment(s): He has one brother which he has no contact with. Father Family Medical History: COPD, Coronary Artery Disease (CAD) Additional Family Medical History / Comment(s): Father at age 73yrs. Mother Family Medical History: Seizure Disorder Additional Family Medical History / Comment(s): Mother was manic/depressive. She at age 51yrs. Medications and Allergies Home Medications Medication Instructions Recorded Confirmed Type Ibuprofen [Motrin Ib] 800 mg PO Q8H PRN 09/20/22 09/20/22 History Allergies Allergy/AdvReac Type Severity Reaction Status Date / Time No Known Allergies Allergy Verified 09/20/22 10:07 Physical Exam Vitals: Vital Signs Temp Pulse Resp BP Pulse Ox 09/20/22 08:39 86 18 115/83 96 09/20/22 07:00 97.8 F 88 18 166/86 97 Intake and Output 09/19/22 09/20/22 09/20/22 22:59 06:59 14:59 Other: Weight 136.078 kg Results 09/20/22 07:31 09/20/22 07:31 Cardiac Enzymes 09/20/22 09/20/22 09/20/22 Range/Units 07:31 07:31 09:54 AST 32 (17-59) U/L Troponin I 0.028 0.049 H* (0.000-0.034) ng/mL Coagulation 09/20/22 Range/Units 07:31 PT 10.0 (9.0-12.0) sec APTT 22.6 (22.0-30.0) sec CBC 09/20/22 Range/Units 07:31 WBC 4.7 (3.8-10.6) k/uL RBC 4.85 (4.30-5.90) m/uL Hgb 14.9 (13.0-17.5) gm/dL Hct 43.3 (39.0-53.0) % Plt Count 199 (150-450) k/uL Comprehensive Metabolic Panel 09/20/22 Range/Units 07:31 Sodium 138 (137-145) mmol/L Potassium 4.0 (3.5-5.1) mmol/L Chloride 104 (98-107) mmol/L Carbon Dioxide 25 (22-30) mmol/L BUN 14 (9-20) mg/dL Creatinine 0.98 (0.66-1.25) mg/dL Glucose 166 H (74-99) mg/dL Calcium 8.5 (8.4-10.2) mg/dL AST 32 (17-59) U/L ALT 47 (4-49) U/L Alkaline Phosphatase 60 (38-126) U/L Total Protein 5.6 L (6.3-8.2) g/dL Albumin 3.3 L (3.5-5.0) g/dL Current Medications Generic Name Dose Route Start Last Admin Trade Name Freq PRN Reason Stop Dose Admin Alprazolam 0.5 mg 09/20/22 11:28 Alprazolam 0.5 Mg Tab PO BID PRN Anxiety Aspirin 325 mg 09/21/22 09:00 Aspirin 325 Mg Tab PO DAILY HEATHER Sodium Chloride 1,000 mls @ 75 mls/hr 09/20/22 11:30 Saline 0.9% IV .[id number] HEATHER Nitroglycerin 0.4 mg 09/20/22 09:26 Nitroglycerin Sl Tabs 0.4 Mg Tab SUBLINGUAL Q5M PRN Chest Pain Intake and Output 09/19/22 09/20/22 09/20/22 22:59 06:59 14:59 Other: Weight 136.078 kg Patient Weight 09/21/22 06:59 Weight 136.078 kg 09/20/22 07:31 09/20/22 07:31
[2022-09-20] MEDS: SODIUM CHLORIDE 0.9% 1,000 ML IV SCH (15:14)
[2022-09-20 19:20] LABS: Basophils % (A) 1 %; Eosinophils # (A) 0.1 k/uL (0-0.7); Eosinophils % (A) 3 %; HCT 43.7 % (39.0-53.0); HGB 14.7 gm/dL (13.0-17.5); Lymphocytes # (A) 1.4 k/uL (1.0-4.8); Lymphocytes % (A) 28 %; MCH 30.3 pg (25.0-35.0); MCHC 33.8 g/dL (31.0-37.0); MCV 89.7 fL (80.0-100.0); Mean Platelet Volume 7.1; Monocytes # (A) 0.6 k/uL (0-1.0); Monocytes % (A) 11 %; Neutrophils # (A) 2.9 k/uL (1.3-7.7); Neutrophils % (A) 55 %; Platelet Count 203 k/uL (150-450); RBC 4.87 m/uL (4.30-5.90); RDW 14.3 % (11.5-15.5); WBC 5.2 k/uL (3.8-10.6)
[2022-09-20 19:24] LABS: INR 0.9 (<1.2); Partial Thromboplastin Time 24.3 sec (22.0-30.0); Prothrombin Time 9.6 sec (9.0-12.0)
[2022-09-20] MEDS: METOPROLOL TARTRATE 25 MG TAB PO SCH (20:25)
[2022-09-20] MEDS ORDERED: ATORVASTATIN 80 MG TAB PO SCH (21:00)
[2022-09-20] MEDS ORDERED: SODIUM CHLORIDE 0.9% 1,000 ML in EMPTY BAG 1 BAG IV SCH (23:00)
[2022-09-21] MEDS ORDERED: ASPIRIN 325 MG TAB PO ONE (05:00)
[2022-09-21] MEDS ORDERED: ATORVASTATIN 80 MG TAB PO ONE (05:00)
[2022-09-21] MEDS ORDERED: HEPARIN SODIUM,PORCINE 10,000 UNIT in SODIUM CHLORIDE 0.9% 1,000 ML IRRIGATION PRN (07:00)
[2022-09-21] MEDS ORDERED: HEPARIN SODIUM,PORCINE 2,500 UNIT in SODIUM CHLORIDE 0.9% 250 ML IRRIGATION PRN (07:00)
[2022-09-21] MEDS ORDERED: fentaNYL (PF) 50 MCG/ML 2 ML AMP ONE (07:12)
[2022-09-21] MEDS ORDERED: VERAPAMIL 2.5 MG/ML 2 ML AMP ONE (07:12)
[2022-09-21] MEDS ORDERED: HEPARIN SODIUM 1,000 UN/ML (10ML VL) ONE (07:13)
[2022-09-21] MEDS ORDERED: MIDAZOLAM 2 MG/2 ML VIAL IVP ONE (07:40)
[2022-09-21] MEDS ORDERED: SODIUM CHLORIDE 0.9% 1,000 ML IV ONE (07:40)
[2022-09-21] MEDS ORDERED: fentaNYL (PF) 50 MCG/ML 2 ML AMP IV ONE (07:40)
[2022-09-21] MEDS ORDERED: LIDOCAINE 1% INJ 10MG/ML (5 ML VIAL-PF) SQ ONE (07:41)
[2022-09-21] MEDS ORDERED: LIDOCAINE 1% INJ 10MG/ML (20 ML MDV) ONE (07:48)
[2022-09-21] MEDS ORDERED: LIDOCAINE 1% INJ 10MG/ML (30 ML VIAL-PF) SQ ONE (07:52)
[2022-09-21] MEDS ORDERED: IOPAMIDOL-370 200ML BTL INJ ONE (08:02)
--- NOTE | 2022-09-21 08:30 | CC ---
CARDIAC CATHETERIZATION REPORT INDICATIONS: Acute [id number] elevation WI. PROCEDURE NOTE: After obtaining informed consent, left heart catheterization, coronary angiogram are performed via the right femoral artery using standard Sharon catheters. The patient tolerated the procedure well without any obvious immediate complications. A femoral angiogram was performed, and Angio-Seal was deployed for hemostasis. The patient received moderate conscious sedation and total sedation time was 25 minutes. I initially attempted right radial artery access and was unsuccessful. Hence, I proceeded with femoral catheterization uneventfully. FINDINGS: HEMODYNAMICS: 1. Left ventricular end-diastolic pressure is 14 to 16 mm. There is no significant gradient across the aortic valve. 2. Left ventriculogram: Left ventriculogram is not performed. ANGIOGRAPHIC DATA: 1. Right coronary artery is a nondominant vessel and is free of significant stenosis. There is mild nonobstructive disease in the distal RCA. 2. Left main coronary artery is a normal-sized vessel and is free of stenosis. It divides into left anterior descending coronary artery and circumflex coronary artery. 3. LAD and its branches, circumflex coronary artery and its branches are free of significant stenosis. CONCLUSION: Mild nonobstructive CAD. PLAN: The patient's management is going to be in the form of risk factor modification and optimal medical therapy. The exact significance of elevated troponin is unclear, could represent an area of plaque rupture or it could be a falsely positive test. MMODL / IJN: [id number] /
[2022-09-21] MEDS ORDERED: ASPIRIN 325 MG TAB PO SCH (09:00)
[2022-09-21] MEDS: SODIUM CHLORIDE 0.9% 1,000 ML IV SCH (09:01)
[2022-09-21] MEDS ORDERED: RX INFO: IV CONTRAST WAS GIVEN 1 EACH MISC MISCELLANE PRN (09:36)
[2022-09-21] MEDS ORDERED: SODIUM CHLORIDE 0.9% 1,000 ML IV SCH (09:45)
[2022-09-21] MEDS: METOPROLOL TARTRATE 25 MG TAB PO SCH (09:56)
--- NOTE | 2022-09-21 10:53 | CA ---
Transthoracic Echo Report Name: David Romero Age: 47 Gender: M : 1975 Exam Date: 09/21/2022 09:00 Exam Location: [facility] Ht (in): 73 Wt (lb): 300 Ordering Physician: Anand Nair MD Attending/Referring Phys: [id number], Joanie Porcelain Enamel Installer Roberta Abdalla, JERMAIN Procedure CPT: Indications: Rule out heart disease Cardiac Hx: Technical Quality: Fair Contrast 1: Total Dose (mL): Contrast 2: Total Dose (mL): MEASUREMENTS (Male / Female) Normal Values 2D ECHO LV Diastolic Diameter PLAX 4.3 cm 4.2 - 5.9 / 3.9 - 5.3 cm LV Systolic Diameter PLAX 3.6 cm IVS Diastolic Thickness 1.5 cm 0.6 - 1.0 / 0.6 - 0.9 cm LVPW Diastolic Thickness 1.3 cm 0.6 - 1.0 / 0.6 - 0.9 cm LV Relative Wall Thickness 0.7 RV Internal Dim ED PLAX 3.4 cm LA Systolic Diameter LX 3.7 cm 3.0 - 4.0 / 2.7 - 3.8 cm LV Diastolic Volume MOD 4C 68.1 cm??? LV Systolic Volume MOD 4C 31.0 cm??? LV Ejection Fraction MOD 4C 54.5 % LV Diastolic Length 4C 7.4 cm LV Systolic Length 4C 5.9 cm LV Diastolic Volume MOD 2C 47.1 cm??? LV Systolic Volume MOD 2C 13.5 cm??? LV Ejection Fraction MOD 2C 71.4 % LV Diastolic Length 2C 5.9 cm LV Systolic Length 2C 5.4 cm M-MODE Aortic Root Diameter MM 3.6 cm MV E Point Septal Separation 1.1 cm AV Cusp Separation MM 2.4 cm DOPPLER AV Peak Velocity 121.5 cm/s AV Peak Gradient 5.9 mmHg MV Area PHT 4.3 cm??? Mitral E Point Velocity 95.7 cm/s Mitral A Point Velocity 88.7 cm/s Mitral E to A Ratio 1.1 MV Deceleration Time 177.1 ms MV E' Velocity 7.5 cm/s Mitral E to MV E' Ratio 12.7 TR Peak Velocity 213.8 cm/s TR Peak Gradient 18.3 mmHg Right Ventricular Systolic Press 23.3 mmHg FINDINGS Left Ventricle Left ventricular ejection fraction is estimated at 55-60 %. Left ventricular cavity size normal. Moderate concentric left ventricular hypertrophy. Normal left ventricular wall motion. Right Ventricle Mild right ventricular dilatation. Right ventricular systolic pressure within normal limits. Right Atrium Normal right atrial size. Left Atrium Normal left atrial size. Mitral Valve Structurally normal mitral valve. Trace mitral regurgitation. Aortic Valve Trileaflet aortic valve. No aortic valve stenosis or regurgitation. Tricuspid Valve Structurally normal tricuspid valve. Mild tricuspid regurgitation. Pulmonic Valve Pulmonic valve not well visualized. Pericardium Normal pericardium. No pericardial effusion. Aorta Normal size aortic root and proximal ascending aorta. CONCLUSIONS Normal left ventricle size and systolic function with [id number] concentric LVH. Mild mitral and tricuspid regurgitation. No significant pulmonary hypertension. No pericardial effusion Previewed by: Dr. Megan Tejada MD (Electronically Signed) Final Date: 21 Sep 2022 10:52
[2022-09-21 11:46] VITALS: TEMP 98.3
[2022-09-21 14:04] VITALS: BP 125/69; PULSE 77; RESP 17
[2022-09-22] MEDS ORDERED: ASPIRIN 81 MG PO SCH (09:00)
--- NOTE | 2022-09-24 12:28 | P.DS ---
Providers Date of admission: 09/20/22 09:27 Attending physician: Anand Nair MD Consults: 09/20/22 09:26 Consult Physician Urgent Consulting Provider: Melo Hernandez Consult Reason/Comments: acs Do you want consulting provider notified?: Yes Primary care physician: Stated None Hospital Course: Diagnoses: Chest pain with mildly elevated troponin, suspicious for non-STEMI Nicotine dependence COPD, no acute exacerbation History of osteoarthritis Substance abuse with marijuana and cocaine, he was counseled and he agrees Obesity with BMI of 39.6 Hospital course: This is a pleasant 47 years old male with multiple medical problems including COPD, memory impairment, osteoarthritis. Presents because of chest pain which started this morning while his eating history of he felt choking and he coughed some blood. And he was complaining of the same time of left-sided chest pain, felt like throbbing and hardburn, nonradiating described by the patient as 4/10 in nature. Associated with little shortness of breath but no cough. His pain is worse with deep breath and coughing. D-dimer checked and was -0.33. Patient also evaluated by accounting analyst and he had unremarkable cardiac cath with no significant coronary artery disease, mild disease or normal. His chest pain is noncardiac nonpulmonary nature and most likely musculoskeletal versus other. Patient showed interval improvement and he still have little discomfort but no other symptoms. He is hemodynamically stable. Rest of labs were normal including CBC, INR, BMP and liver enzymes. Ejection fraction was checked and was normal at 55-60% with [id number] concentric LVH. No significant other abnormalities. Patient denies any other new complaints related Patient was cleared for discharge by accounting analyst Patient agrees to go home today. Problems and management plan were discussed with the patient and he verbalized understanding and acceptance Patient was found stable and can be discharged home however he needs follow-up as an outpatient. Patient was instructed to follow up with PCP within one week and patient agrees Patient was instructed to follow-up with cardiology team Dr. Pena in 1-2 weeks after discharge and he agrees Physical exam Gen: patient is a AAOx3, no distress CVS: S1-S2, RRR, no murmur Lungs: B/L CTA, no wheezing Abdomen: soft, no distention, no tenderness, positive bowel sounds Extremity: no leg edema or induration Time spent more than 35 minutes Patient Condition at Discharge: Fair Plan - Discharge Summary Discharge Rx Participant: No New Discharge Prescriptions: New Metoprolol Tartrate [Lopressor] 25 mg PO BID #60 tab Aspirin 81 mg PO DAILY #30 tab Atorvastatin [Lipitor] 80 mg PO HS #30 tab Discontinued Ibuprofen [Motrin Ib] 800 mg PO Q8H PRN PRN Reason: Pain Discharge Medication List Aspirin 81 mg PO DAILY #30 tab 09/21/22 [Rx] Atorvastatin [Lipitor] 80 mg PO HS #30 tab 09/21/22 [Rx] Metoprolol Tartrate [Lopressor] 25 mg PO BID #60 tab 09/21/22 [Rx] Follow up Appointment(s)/Referral(s): Maxim Pena MD [STAFF PHYSICIAN] - 1 Week (office will call you with appt time) None,Stated [Primary Care Provider] - 1-2 days Patient Instructions/Handouts: *Surgery [facility] - After Heart Catheterization - Neon Sign Installer Instructions, Chest Pain (DC) Activity/Diet/Wound Care/Special Instructions: Heart healthy diet Activity is restricted till you see your doctor Discharge Disposition: HOME SELF-CARE
== END 2022-09-21 13:55 | disposition home or self-care (01) ==
LOC: EC 06:57 → OBSVTOIN 09:27 → 6NMEDSUR 09:27 → INTOOBSV 09:27 → 3SCARD 11:17 → UNDODISIN 09-21 13:55
PROVIDERS: ADMIT Internal Medicine; ATTEND Internal Medicine
DX: R07.89 Other chest pain (principal); J44.9 Chronic obstructive pulmonary disease, unspecified; F32.A Depression, unspecified; I25.10 Atherosclerotic heart disease of native coronary artery without angina pectoris; F12.10 Cannabis abuse, uncomplicated; F14.10 Cocaine abuse, uncomplicated; E66.9 Obesity, unspecified; R77.8 Other specified abnormalities of plasma proteins; I08.1 Rheumatic disorders of both mitral and tricuspid valves; F10.10 Alcohol abuse, uncomplicated; F17.210 Nicotine dependence, cigarettes, uncomplicated; Z79.899 Other long term (current) drug therapy; Z82.5 Family history of asthma and other chronic lower respiratory diseases; Z82.0 Family history of epilepsy and other diseases of the nervous system; Z82.49 Family history of ischemic heart disease and other diseases of the circulatory system; Z68.39 Body mass index [BMI] 39.0-39.9, adult
CPT/HCPCS: 96366 ×3; 96365; 99285; 36415; 94760; 93005; 93306; 93458; 85379; 80053; 83690; 83735; 84484; 85025; 85610; 85730; 83036; 71046; G0378 ×2; C1760; C1769 ×2; C1894 ×2; S4990; J2250; J2001 ×2; J3010; J1644 ×2; Q9967

== ENCOUNTER 2022-10-19 08:18 | Emergency (ER) | payer OTHER ==
[2022-10-19 08:24] VITALS: TEMP 98
[2022-10-19] MEDS ORDERED: FAMOTIDINE 20 MG/2 ML VIAL IV STA (08:36)
[2022-10-19] MEDS ORDERED: SODIUM CHLORIDE 0.9% 2,000 ML IV STA (08:36)
[2022-10-19] MEDS ORDERED: KETOROLAC 15 MG/ML 1 ML VIAL IVP STA (08:37)
[2022-10-19] MEDS ORDERED: IPRATROPIUM-ALBUTEROL 3 ML NEB INHALATION STA (08:37)
--- NOTE | 2022-10-19 09:02 | ED ---
Nausea/Vomiting/Diarrhea HPI - General Chief complaint: Nausea/Vomiting/Diarrhea Stated complaint: Diarrhea, stomach pain Time Seen by Provider: 10/19/22 08:28 Source: patient, RN notes reviewed Mode of arrival: ambulatory Limitations: no limitations - History of Present Illness Initial comments: This is a 47-year-old male who presents to the emergency department for nausea, vomiting, diarrhea, and headaches. States that this started 3 days ago. He has not thrown up since yesterday. Reports having diarrhea 2-3 times daily. He had 3 bowel movements yesterday that he describes as soft. So far he has had 2 bowel movements today that he describes as watery diarrhea. States that the abdominal discomfort is related to his symptoms of diarrhea and nausea. This is not localized to any particular area of the abdomen. Denies any recent antibiotic use. Also reports headaches and sneezing. He had a negative at home Covid test. Denies any fevers, chills, or sick contacts. Additionally, he does report that he has had some shortness of breath. His albuterol solution is and he also lost the hosing, preventing him from being able to do the breathing treatments that he is supposed to do. Denies any fevers, chills, sore throat, cough, chest pain, palpitations, or back pain. MD complaint: nausea, vomiting, diarrhea, abdominal pain Onset/Timin -: days(s) - Related Data Previous Rx's Medication Instructions Recorded Aspirin 81 mg PO DAILY #30 tab 09/21/22 Atorvastatin [Lipitor] 80 mg PO HS #30 tab 09/21/22 Metoprolol Tartrate [Lopressor] 25 mg PO BID #60 tab 09/21/22 Albuterol Nebulized [Ventolin 2.5 mg INHALATION Q4H PRN 8 Days 10/19/22 Nebulized] #150 ml Allergies Allergy/AdvReac Type Severity Reaction Status Date / Time No Known Allergies Allergy Verified 10/19/22 08:24 Review of Systems ROS Statement: Those systems with pertinent positive or pertinent negative responses have been documented in the HPI. ROS Other: All systems not noted in ROS Statement are negative. Past Medical History Past Medical History: COPD, Memory Impairment, Osteoarthritis (OA) Additional Past Medical History / Comment(s): SEE DR CHRISTIANSEN H&P, HX OF fx's- LEFT ORBITAL ,ribs,lt hand, lt wrist as child, lt ankle. Patient has a history of headaches and fainting for the past year. some memory loss, p donates plasma 1-2 times a week. History of Any Multi-Drug Resistant Organisms: None Reported Past Surgical History: Adenoidectomy, Orthopedic Surgery, Tonsillectomy Additional Past Surgical History / Comment(s): 01/2015 LEFT ORBIT PLATES AT [facility], 11/25/08 pins and plates to left ankle after a fall injury, L knee arthroscopy, "wandering" left eye surgically repaired. TILT TABLE TEST 05-29-15. Past Anesthesia/Blood Transfusion Reactions: No Reported Reaction Additional Past Anesthesia/Blood Transfusion Reaction / Comment(s): Pt has never received blood. Past Psychological History: Depression Smoking Status: Current every day smoker Past Alcohol Use History: Occasional Past Drug Use History: Marijuana - Past Family History Brother(s) Additional Family Medical History / Comment(s): He has one brother which he has no contact with. Father Family Medical History: COPD, Coronary Artery Disease (CAD) Additional Family Medical History / Comment(s): Father at age 73yrs. Mother Family Medical History: Seizure Disorder Additional Family Medical History / Comment(s): Mother was manic/depressive. She at age 51yrs. General Exam Limitations: no limitations General appearance: alert, in no apparent distress Head exam: Present: atraumatic, normocephalic, normal inspection Respiratory exam: Present: wheezes Cardiovascular Exam: Present: regular rate, normal rhythm, normal heart sounds. Absent: systolic murmur, diastolic murmur, rubs, gallop, clicks GI/Abdominal exam: Present: soft, normal bowel sounds. Absent: distended, tend erness, guarding, rebound, rigid Neurological exam: Present: alert, oriented X3, CN II-XII intact Psychiatric exam: Present: normal affect, normal mood Skin exam: Present: warm, dry, intact, normal color. Absent: rash Course Vital Signs 10/19/22 10/19/22 10/19/22 08:19 10:36 10:43 Temperature 98.0 F Pulse Rate 77 70 72 Respiratory 20 Rate Blood Pressure 131/86 O2 Sat by Pulse 96 Oximetry 10/19/22 11:02 Temperature Pulse Rate 70 Respiratory 18 Rate Blood Pressure 139/89 O2 Sat by Pulse 95 Oximetry Medical Decision Making - Medical Decision Making This is a 47-year-old male who presents to the emergency department for nausea, vomiting, and diarrhea. Was pt. sent in by a medical professional or institution? @ -No Did you speak to anyone other than the patient for history? @ -No Did you review nursing and triage notes? @ -Yes, and I agree, it is accurate with regards to the patient's symptoms. Were old charts reviewed? @ -No Differential Diagnosis? @ -Differential Diarrhea/Vomiting: Gastroenteritis, COVID, myocardial infarction, UTI, parasitic infection, food poisoning, IBS, crohn's disease, ulcerative colitis, C. diff, lactose intolerance, acute intraabdominal process, medications. This is not meant to be an all-inclusive list. EKG interpreted by me (3pts min.)? @ -EKG interpreted by me demonstrating the following: Sinus rhythm. Ventricular rate 71 bpm, OK interval 155 ms, QRS duration 85 ms, QTC 391 ms. X-rays interpreted by me (1pt min.)? @ -Chest x-ray obtained, my interpretation identifies no localized consolidations or infiltrates. CT interpreted by me (1pt min.)? @ -Not obtained U/S interpreted by me (1pt. min.)? @ -Not obtained What testing was considered but not performed? (CT, X-rays, U/S, labs)? Why? @ -None What meds were considered but not given? Why? @ -None Did you discuss the management of the patient with other professionals? @ -No Did you reconcile home meds? @ -No Was smoking cessation discussed for >3mins.? @ -No Was critical care preformed (if so, how long)? @ -No Were there social determinants of health that impacted care today? How? (Homelessness, low income, unemployed, alcoholism, drug addiction, transportation, low edu. Level, literacy, decrease access to med. care, assisted, rehab)? @ -No Was there de-escalation of care discussed even if they declined? (Discuss DNR or withdrawal of care, Hospice)? @ -No What co-morbidities impacted this encounter? (DM, HTN, Smoking, COPD, CAD, Cancer, CVA, Hep., AIDS, mental health diagnosis, sleep apnea, morbid obesity)? @ -COPD Was patient admitted / discharged? @ -Discharged. Lab work obtained and found to be nonactionable. COVID, infl uenza, and RSV testing were negative. Chest x-ray reveals no acute process. Patient was given 2 L bolus of IV fluids, Pepcid, and Toradol, which he states was beneficial. Given that the patient was not receiving his breathing treatments and was exhibiting some shortness of breath, DuoNeb breathing t reatment was administered, which the patient states was very helpful. He was given hosing and a mouthpiece, which he states he did not have currently. Refill on albuterol nebulizer solution was also provided, as the patient states that his was . With the hosing and mouthpiece as well as refill on albuterol solution, patient states that he will now be able to do his breathing treatments at home. Starter pack for Lomotil provided. Advised he either take this or [id number] Imodium as needed for any additional diarrhea. Undiagnosed new problem with uncertain prognosis? @ -None Drug Therapy requiring intensive monitoring for toxicity (Heparin, Nitro, Insulin, Cardizem)? @ -None Were any procedures done? @ -None Diagnosis/symptom? @ -COPD Acute, or Chronic, or Acute on Chronic? @ -Chronic Uncomplicated (without systemic symptoms) or Complicated (systemic symptoms)? @ -Uncomplicated Side effects of treatment? @ -None Exacerbation, Progression, or Severe Exacerbation] @ -Possible mild exacerbation due to missing breathing treatments, but otherwise fairly stable. Poses a threat to life or bodily function? @ -No Diagnosis/symptom? @ -Diarrhea Acute, or Chronic, or Acute on Chronic? @ -Acute Uncomplicated (without systemic symptoms) or Complicated (systemic symptoms)? @ -Uncomplicated Side effects of treatment? @ -None Exacerbation, Progression, or Severe Exacerbation] @ -Not applicable Poses a threat to life or bodily function? @ -No Return precautions reviewed in depth, the patient is instructed to return to the emergency department with any new, worsening, or concerning symptoms. Patient verbalized understanding. This case was discussed in detail with the attending ED physician, Dr. Pollack. Presentation, findings, and treatment plan discussed in detail as well. - Lab Data Result diagrams: 10/19/22 08:46 10/19/22 08:46 Lab Results 10/19/22 10/19/22 10/19/22 Range/Units 08:46 08:46 08:46 WBC 5.6 (3.8-10.6) k/uL RBC 4.72 (4.30-5.90) m/uL Hgb 14.3 (13.0-17.5) gm/dL Hct 41.7 (39.0-53.0) % MCV 88.3 (80.0-100.0) fL MCH 30.2 (25.0-35.0) pg MCHC 34.2 (31.0-37.0) g/dL RDW 14.4 (11.5-15.5) % Plt Count 245 (150-450) k/uL MPV 7.7 Neutrophils % 60 % Lymphocytes % 25 % Monocytes % 6 % Eosinophils % 6 % Basophils % 1 % Neutrophils # 3.4 (1.3-7.7) k/uL Lymphocytes # 1.4 (1.0-4.8) k/uL Monocytes # 0.4 (0-1.0) k/uL Eosinophils # 0.4 (0-0.7) k/uL Basophils # 0.0 (0-0.2) k/uL Sodium 139 (137-145) mmol/L Potassium 4.2 (3.5-5.1) mmol/L Chloride 106 (98-107) mmol/L Carbon Dioxide 28 (22-30) mmol/L Anion Gap 5 mmol/L BUN 13 (9-20) mg/dL Creatinine 0.87 (0.66-1.25) mg/dL Est GFR (CKD-EPI)AfAm >90 (>60 ml/min/1.73 sqM) Est GFR (CKD-EPI)NonAf >90 (>60 ml/min/1.73 sqM) Glucose 142 H (74-99) mg/dL Plasma Lactic Acid [place] (0.7-2.0) mmol/L Calcium 8.5 (8.4-10.2) mg/dL Total Bilirubin 0.4 (0.2-1.3) mg/dL AST 38 (17-59) U/L ALT 54 H (4-49) U/L Alkaline Phosphatase 67 (38-126) U/L Troponin I (0.000-0.034) ng/mL Total Protein 6.1 L (6.3-8.2) g/dL Albumin 3.7 (3.5-5.0) g/dL Urine Color Yellow Urine Appearance Clear (Clear) Urine pH 5.5 (5.0-8.0) Ur Specific [place] 1.021 (1.001-1.035) Urine Protein Trace H (Negative) Urine Glucose (UA) 2+ H (Negative) Urine Ketones Negative (Negative) Urine Blood Negative (Negative) Urine Nitrite Negative (Negative) Urine Bilirubin Negative (Negative) Urine Urobilinogen <2.0 (<2.0) mg/dL Ur Leukocyte Esterase Negative (Negative) Influenza Type A (PCR) (Not Detectd) Influenza Type B (PCR) (Not Detectd) RSV (PCR) (Not Detectd) SARS-CoV-2 (PCR) (Not Detectd) 10/19/22 10/19/22 10/19/22 Range/Units 08:46 08:46 08:46 WBC (3.8-10.6) k/uL RBC (4.30-5.90) m/uL Hgb (13.0-17.5) gm/dL Hct (39.0-53.0) % MCV (80.0-100.0) fL MCH (25.0-35.0) pg MCHC (31.0-37.0) g/dL RDW (11.5-15.5) % Plt Count (150-450) k/uL MPV Neutrophils % % Lymphocytes % % Monocytes % % Eosinophils % % Basophils % % Neutrophils # (1.3-7.7) k/uL Lymphocytes # (1.0-4.8) k/uL Monocytes # (0-1.0) k/uL Eosinophils # (0-0.7) k/uL Basophils # (0-0.2) k/uL Sodium (137-145) mmol/L Potassium (3.5-5.1) mmol/L Chloride (98-107) mmol/L Carbon Dioxide (22-30) mmol/L Anion Gap mmol/L BUN (9-20) mg/dL Creatinine (0.66-1.25) mg/dL Est GFR (CKD-EPI)AfAm (>60 ml/min/1.73 sqM) Est GFR (CKD-EPI)NonAf (>60 ml/min/1.73 sqM) Glucose (74-99) mg/dL Plasma Lactic Acid [place] 1.7 (0.7-2.0) mmol/L Calcium (8.4-10.2) mg/dL Total Bilirubin (0.2-1.3) mg/dL AST (17-59) U/L ALT (4-49) U/L Alkaline Phosphatase (38-126) U/L Troponin I <0.012 (0.000-0.034) ng/mL Total Protein (6.3-8.2) g/dL Albumin (3.5-5.0) g/dL Urine Color Urine Appearance (Clear) Urine pH (5.0-8.0) Ur Specific [place] (1.001-1.035) Urine Protein (Negative) Urine Glucose (UA) (Negative) Urine Ketones (Negative) Urine Blood (Negative) Urine Nitrite (Negative) Urine Bilirubin (Negative) Urine Urobilinogen (<2.0) mg/dL Ur Leukocyte Esterase (Negative) Influenza Type A (PCR) Not Detected (Not Detectd) Influenza Type B (PCR) Not Detected (Not Detectd) RSV (PCR) Not Detected (Not Detectd) SARS-CoV-2 (PCR) Not Detected (Not Detectd) - Radiology Data Radiology results: report reviewed, image reviewed Disposition Clinical Impression: Diarrhea, Acute URI Disposition: HOME SELF-CARE Instructions (If sedation given, give patient instructions): Upper Respiratory Infection (ED), Acute Diarrhea (ED) Additional Instructions: Return to the emergency department with any new, worsening, or concerning symptoms. You can use the albuterol breathing treatments every 4-6 hours as ne eded. You can use the Lomotil provided or take [id number] Imodium for management of the diarrhea. You can use the albuterol breathing treatments every 4-6 hours as needed. Otherwise continue with supportive care. Follow up with your primary care provider in 1-2 days. Prescriptions: Albuterol Nebulized [Ventolin Nebulized] 2.5 mg INHALATION Q4H PRN 8 Days #150 ml PRN Reason: Shortness Of Breath Is patient prescribed a controlled substance at d/c from ED?: No Referrals: None,Stated [Primary Care Provider] - 1-2 days
[2022-10-19 09:17] LABS: Basophils % (A) 1 %; Eosinophils # (A) 0.4 k/uL (0-0.7); Eosinophils % (A) 6 %; HCT 41.7 % (39.0-53.0); HGB 14.3 gm/dL (13.0-17.5); Lymphocytes # (A) 1.4 k/uL (1.0-4.8); Lymphocytes % (A) 25 %; MCH 30.2 pg (25.0-35.0); MCHC 34.2 g/dL (31.0-37.0); MCV 88.3 fL (80.0-100.0); Mean Platelet Volume 7.7; Monocytes # (A) 0.4 k/uL (0-1.0); Monocytes % (A) 6 %; Neutrophils # (A) 3.4 k/uL (1.3-7.7); Neutrophils % (A) 60 %; Platelet Count 245 k/uL (150-450); RBC 4.72 m/uL (4.30-5.90); RDW 14.4 % (11.5-15.5); WBC 5.6 k/uL (3.8-10.6)
[2022-10-19 09:31] LABS: ALT 54 U/L (4-49); AST 38 U/L (17-59); African American GFR (CKD) >90 (>60 ml/min/1.73 sqM); Albumin 3.7 g/dL (3.5-5.0); Alkaline Phosphatase 67 U/L (38-126); Anion Gap 5 mmol/L; Blood Urea Nitrogen 13 mg/dL (9-20); Calcium 8.5 mg/dL (8.4-10.2); Carbon Dioxide 28 mmol/L (22-30); Chloride 106 mmol/L (98-107); Glucose 142 mg/dL (74-99); Non-African American GFR(CKD) >90 (>60 ml/min/1.73 sqM); Potassium 4.2 mmol/L (3.5-5.1); Sodium 139 mmol/L (137-145); Total Bilirubin 0.4 mg/dL (0.2-1.3); Total Protein 6.1 g/dL (6.3-8.2)
--- NOTE | 2022-10-19 09:31 | XR ---
EXAMINATION TYPE: XR chest 2V DATE OF EXAM: 10/19/2022 9:24 AM COMPARISON: Chest radiographs from 09/20/2022 TECHNIQUE: XR chest 2V Frontal and lateral views of the chest. CLINICAL INDICATION:Male, 47 years old with history of SUSIE; FINDINGS: Lungs/Pleura: There is no evidence of pleural effusion, focal consolidation, or pneumothorax. Pulmonary vascularity: Unremarkable. Heart/mediastinum: Cardiomediastinal silhouette is unremarkable. Musculoskeletal: No acute osseous pathology. IMPRESSION: No acute cardiopulmonary disease/process.
[2022-10-19 09:51] LABS: Appearance,Urine Clear (Clear); Bilirubin,Urine Negative (Negative); Blood,Urine Negative (Negative); Color,Urine Yellow; Glucose,Urine (UA) 2+ (Negative); Ketones,Urine Negative (Negative); Leukocyte Esterase,Urine Negative (Negative); Nitrite,Urine Negative (Negative); PH, Urine 5.5 (5.0-8.0); Protein,Urine Trace (Negative); Specific Gravity,Urine 1.021 (1.001-1.035); Urobilinogen,Urine <2.0 mg/dL (<2.0)
[2022-10-19] MEDS ORDERED: DIPHENOX-ATROP STARTER PACK 8 TAB BTL PO STA (10:51)
[2022-10-19 11:06] VITALS: BP 139/89; PULSE 70; RESP 18
== END 2022-10-19 11:24 | disposition home or self-care (01) ==
LOC: EC 08:18
DX: J06.9 Acute upper respiratory infection, unspecified (principal); R19.7 Diarrhea, unspecified; J44.9 Chronic obstructive pulmonary disease, unspecified; F12.90 Cannabis use, unspecified, uncomplicated; F17.200 Nicotine dependence, unspecified, uncomplicated; Z86.59 Personal history of other mental and behavioral disorders; Z20.822 Contact with and (suspected) exposure to COVID-19
CPT/HCPCS: 36415; 94640; 93005; 80053; 83605; 84484; 85025; 81003; 87636; 71046; 99284; 96374; 96375; 96361 ×2; J1885

== ENCOUNTER 2023-02-18 21:59 | Emergency (ER) | payer OTHER ==
[2023-02-18 22:07] VITALS: BP 115/94; PULSE 88; RESP 20; TEMP 97.4
--- NOTE | 2023-02-18 23:31 | ED ---
General Adult HPI - General Chief complaint: Fall Stated complaint: ETOH, fall Time Seen by Provider: 02/18/23 22:08 Source: patient, EMS, RN notes reviewed, old records reviewed Mode of arrival: EMS - History of Present Illness Initial comments: Patient is a 47-year-old male who is brought here for further evaluation after falling at home. He is currently intoxicated. Patient does not drink alcohol on a regular basis. His a history of COPD. He tripped and fell striking the left side of his head. Initially unknown if he lost consciousness but patient states he did not. However he cannot fully remember the fall. Is not on blood thinners. Has some bleeding from an abrasion on his left ear as well as left cheek. No other acute complaints at this time. He is obviously intoxicated with alcohol. Denies any pain anywhere. Ambulates without difficulty although with a intoxicated walk. Presents for further evaluation. - Related Data Home Medications Medication Instructions Recorded Confirmed Albuterol Nebulized [Ventolin 2.5 mg INHALATION RT-Q4H PRN 02/18/23 02/18/23 Nebulized] Previous Rx's Medication Instructions Recorded Aspirin 81 mg PO DAILY #30 tab 09/21/22 Atorvastatin [Lipitor] 80 mg PO HS #30 tab 09/21/22 Metoprolol Tartrate [Lopressor] 25 mg PO BID #60 tab 09/21/22 Allergies Allergy/AdvReac Type Severity Reaction Status Date / Time No Known Allergies Allergy Verified 02/18/23 22:06 Review of Systems ROS Statement: Those systems with pertinent positive or pertinent negative responses have been documented in the HPI. Review of Systems: CONST: Denies fever EYES: Denies blurry vision ENT: Denies nasal congestion C/V: Denies Chest pain RESP: Denies shortness of breath GI: Denies abdominal pain : Denies dysuria SKIN: Denies rash. MSK: Endorses abrasions over the left cheek and left ear NEURO: Denies headache ROS Other: All systems not noted in ROS Statement are negative. Past Medical History Past Medical History: COPD, Memory Impairment, Osteoarthritis (OA) Additional Past Medical History / Comment(s): SEE DR CHRISTIANSEN H&P, HX OF fx's- LEFT ORBITAL ,ribs,lt hand, lt wrist as child, lt ankle. Patient has a history of headaches and fainting for the past year. some memory loss, p donates plasma 1-2 times a week. History of Any Multi-Drug Resistant Organisms: None Reported Past Surgical History: Adenoidectomy, Orthopedic Surgery, Tonsillectomy Additional Past Surgical History / Comment(s): 01/2015 LEFT ORBIT PLATES AT [facility], 11/25/08 pins and plates to left ankle after a fall injury, L knee arthroscopy, "wandering" left eye surgically repaired. TILT TABLE TEST 05-29-15. Past Anesthesia/Blood Transfusion Reactions: No Reported Reaction Additional Past Anesthesia/Blood Transfusion Reaction / Comment(s): Pt has never received blood. Past Psychological History: Depression Smoking Status: Current every day smoker Past Alcohol Use History: Occasional Past Drug Use History: Marijuana - Past Family History Brother(s) Additional Family Medical History / Comment(s): He has one brother which he has no contact with. Father Family Medical History: COPD, Coronary Artery Disease (CAD) Additional Family Medical History / Comment(s): Father at age 73yrs. Mother Family Medical History: Seizure Disorder Additional Family Medical History / Comment(s): Mother was manic/depressive. She at age 51yrs. General Exam - General Exam Comments Initial Comments: General: Appears in no acute distress. Appears intoxicated. HEAD: Normal with no signs of head trauma. Abrasion over the left cheek and in her left ear that is bleeding mildly. EYES: PERRLA, EOMI, conjunctiva normal, no discharge. Pupils are 3 mm and equal bilaterally. ENT: Hearing grossly intact, normal oropharynx. RESPIRATORY: Clear breath sounds bilaterally. No wheezes, rales, or rhonchi. C/V: Regular rate and rhythm. S1 and S2 auscultated, no edema, peripheral pulses 2+ and intact throughout ABD: Abd is soft, nontender, nondistended EXT: Normal range of motion, no obvious deformity. Pelvis is stable. No significant cervical, thoracic, lumbar spine tenderness to palpation. SKIN: Abrasions located on the left cheek and left ear. NEURO: Alert and oriented x 4. Cranial nerves II-XII intact. No focal sensory or strength deficits. GCS of 15. Course Vital Signs 02/18/23 22:02 Temperature 97.4 F L Pulse Rate 88 Respiratory 20 Rate Blood Pressure 115/94 O2 Sat by Pulse 96 Oximetry Medical Decision Making - Medical Decision Making Was pt. sent in by a medical professional or institution (, COBY, SEED TRUCKER, urgent care, hospital, or retirement...) When possible be specific @ -No Did you speak to anyone other than the patient for history (EMS, parent, family, police, friend...)? What history was obtained from this source @ -No Did you review nursing and triage notes (agree or disagree)? Why? @ -I reviewed and agree with nursing and triage notes Were old charts reviewed (outside hosp., previous admission, EMS record, old E KG, old radiological studies, urgent care reports/EKG's, retirement records)? Report findings @ -Old charts reviewed. Differential Diagnosis (chest pain, altered mental status, abdominal pain women, abdominal pain men, vaginal bleeding, weakness, fever, dyspnea, syncope, headache, dizziness, GI bleed, back pain, seizure, CVA, palpatations, mental health, musculoskeletal)? @ -Fall, alcohol intoxication, abrasion, intracranial injury. This list is not all-inclusive. EKG interpreted by me (3pts min.). @ -None done X-rays interpreted by me (1pt min.). @ -None done CT interpreted by me (1pt min.). @ -CT brain reveals no obvious acute intracranial process or injury. U/S interpreted by me (1pt. min.). @ -None done What testing was considered but not performed or refused? (CT, X-rays, U/S, labs)? Why? @ -Considered labs patient declines. What meds were considered but not given or refused? Why? @ -None Did you discuss the management of the patient with other professionals (professionals i.e. COBY Irby, SEED TRUCKER, lab, RT, psych nurse, social worker assistant, storage solutions architect, teacher, corporate banking officer, shelter case manager)? Give summary @ -No Was smoking cessation discussed for >3mins.? @ -No Was critical care preformed (if so, how long)? @ -No Were there social determinants of health that impacted care today? How? (Homelessness, low income, unemployed, alcoholism, drug addiction, transportation, low edu. Level, literacy, decrease access to med. care, [facility], rehab)? @ -No Was there de-escalation of care discussed even if they declined (Discuss DNR or withdrawal of care, Hospice)? DNR status @ -No What co-morbidities impacted this encounter? (DM, HTN, Smoking, COPD, CAD, Cancer, CVA, ARF, Chemo, Hep., AIDS, mental health diagnosis, sleep apnea, morbid obesity)? @ -None Was patient admitted / discharged? Hospital course, mention meds given and route, prescriptions, significant lab abnormalities, going to OR and other pertinent info. @ -Based on the patient's mentation physical exam, patient presents acutely intoxicated with alcohol with a fall from standing and some abrasions over the left cheek and left ear. They did not require stitches. Patient does not want to be here. I did inform him that as he is intoxicated with alcohol he cannot leave. He exposed understanding. He will call his to pick him up. I did discuss with him that due to the fall and initial questionable loss of consciousness and him being acutely intoxicated did recommend a CT brain which he did accept. Declines any blood work or further imaging. Vital signs within acceptable limits. He was in agreement with this plan. CT brain was obtained. It was interpreted by myself as revealing no obvious intracranial process or injury. However there is a long delay in obtaining CT read by radiology due to it being the middle the night. Patient's did p resent at bedside. Patient and patient's would like to leave at this time. He remains stable, has no new neurological deficits or symptoms. He is acting his normal self. He was observed for nearly 2 hours here in the department. Patient's will drive him home and she is sober. I did discuss the risks of being discharged at this time without a formal reading and they did accept him this includes possible from an undetected intracranial bleed. They would still like to go home. I will call him with results. Patient is discharged home. Results returned later on and revealed no obvious acute intracranial process or injury as interpreted by radiology which confirmed my earlier read. I spoke with the patient's Evette over the phone and updated her on the results and she expressed understanding as the patient was sleeping at that time. She expressed understanding that there was no intracranial injury or brain bleed. I instructed the patient to follow up with their PCP in the next 1-3 days. I explained that the patient should return to the emergency department if they experience any worsening symptoms. Strict return precautions were discussed with the patient. The patient expressed understanding of these instructions. I answered all questions that the patient had. The patient was discharged home in good condition with their prescriptions and follow up information. Undiagnosed new problem with uncertain prognosis? @ -No Drug Therapy requiring intensive monitoring for toxicity (Heparin, Nitro, Insulin, Cardizem)? @ -No Were any procedures done? @ -No Diagnosis/symptom? @ -Fall, multiple abrasions, alcohol intoxication Acute, or Chronic, or Acute on Chronic? @ -Acute Uncomplicated (without systemic symptoms) or Complicated (systemic symptoms)? @ -Uncomplicated Side effects of treatment? @ -none Exacerbation, Progression, or Severe Exacerbation] @ -no Poses a threat to life or bodily function? @ -no Disposition Clinical Impression: Fall, Alcohol intoxication, Multiple abrasions Disposition: HOME SELF-CARE Condition: Good Instructions (If sedation given, give patient instructions): Fall Prevention for Older Adults (ED) Is patient prescribed a controlled substance at d/c from ED?: No Referrals: None,Stated [Primary Care Provider] - 1-2 days Time of Disposition: 23:45
--- NOTE | 2023-02-19 02:00 | CT ---
EXAM: CT Head Without Intravenous Contrast CLINICAL HISTORY: ITS.REASON CT Reason: fall, ETOH TECHNIQUE: Axial computed tomography images of the head/brain without intravenous contrast. CTDI is 50.7 mGy and DLP is 1189.4 mGy-cm. This CT exam was performed using one or more of the following dose reduction techniques: automated exposure control, adjustment of the mA and/or kV according to patient size, and/or use of iterative reconstruction technique. COMPARISON: 10/12/2018 FINDINGS: Limitations: Mild motion artifact through the inferior calvarium noted on several image slices. Brain: Unremarkable. No hemorrhage. No significant white matter disease. No edema. Ventricles: Unremarkable. No ventriculomegaly. Bones/joints: Postsurgical changes noted involving the inferior left orbital wall. Soft tissues: Unremarkable. Sinuses: Unremarkable as visualized. No acute sinusitis. Mastoid air cells: Unremarkable as visualized. No mastoid effusion. IMPRESSION: No acute intracranial process identified.
== END 2023-02-18 23:54 | disposition home or self-care (01) ==
LOC: EC 21:59
DX: S00.412A Abrasion of left ear, initial encounter (principal); S00.81XA Abrasion of other part of head, initial encounter; F10.129 Alcohol abuse with intoxication, unspecified; J44.9 Chronic obstructive pulmonary disease, unspecified; F17.200 Nicotine dependence, unspecified, uncomplicated; F12.90 Cannabis use, unspecified, uncomplicated; Z79.899 Other long term (current) drug therapy; W01.0XXA Fall on same level from slipping, tripping and stumbling without subsequent striking against object, initial encounter; Y92.009 Unspecified place in unspecified non-institutional (private) residence as the place of occurrence of the external cause
CPT/HCPCS: 70450; 99285

== ENCOUNTER 2023-04-26 06:19 | Emergency (ER) | payer OTHER ==
[2023-04-26 06:41] VITALS: BP 132/88; PULSE 96; RESP 18; TEMP 98
[2023-04-26] MEDS ORDERED: CEPHALEXIN 500 MG CAP PO STA (06:48)
[2023-04-26] MEDS ORDERED: SULFAMETHOX-TMP 800-160MG 1 EACH TAB PO STA (06:48)
--- NOTE | 2023-04-26 06:50 | ED ---
General Adult HPI - General Chief complaint: Skin/Abscess/Foreign Body Stated complaint: Bleeding from legs Time Seen by Provider: 04/26/23 06:38 Source: patient, RN notes reviewed Mode of arrival: ambulatory Limitations: no limitations - History of Present Illness Initial comments: 47-year-old male with no significant past medical history presents to the emergency department with a chief complaint of thigh bleeding. Patient reports that he has had an abscess to his upper thighs for the last week. Originally had purulent discharge from the site. He reports this morning he got up and showered and noticed that there was blood and clots coming from the area. He denies any fevers or chills, injury or trauma. Denies history of diabetes. He has not been taking anything for his symptoms. Denies tobacco product use. - Related Data Home Medications Medication Instructions Recorded Confirmed Albuterol Nebulized [Ventolin 2.5 mg INHALATION RT-Q4H PRN 02/18/23 02/18/23 Nebulized] Previous Rx's Medication Instructions Recorded Aspirin 81 mg PO DAILY #30 tab 09/21/22 Atorvastatin [Lipitor] 80 mg PO HS #30 tab 09/21/22 Metoprolol Tartrate [Lopressor] 25 mg PO BID #60 tab 09/21/22 Cephalexin [Keflex] 500 mg PO TID #21 cap 04/26/23 Sulfamethox-Tmp 800-160Mg [Bactrim 1 each PO Q12HR #20 tab 04/26/23 Ds] Allergies Allergy/AdvReac Type Severity Reaction Status Date / Time No Known Allergies Allergy Verified 04/26/23 06:32 Review of Systems ROS Statement: Those systems with pertinent positive or pertinent negative responses have been documented in the HPI. ROS Other: All systems not noted in ROS Statement are negative. Past Medical History Past Medical History: COPD, Memory Impairment, Osteoarthritis (OA) Additional Past Medical History / Comment(s): SEE DR CHRISTIANSEN H&P, HX OF fx's- LEFT ORBITAL ,ribs,lt hand, lt wrist as child, lt ankle. Patient has a history of headaches and fainting for the past year. some memory loss, p donates plasma 1-2 times a week. History of Any Multi-Drug Resistant Organisms: None Reported Past Surgical History: Adenoidectomy, Orthopedic Surgery, Tonsillectomy Additional Past Surgical History / Comment(s): 01/2015 LEFT ORBIT PLATES AT [facility], 11/25/08 pins and plates to left ankle after a fall injury, L knee arthroscopy, "wandering" left eye surgically repaired. TILT TABLE TEST 05-29-15. Past Anesthesia/Blood Transfusion Reactions: No Reported Reaction Additional Past Anesthesia/Blood Transfusion Reaction / Comment(s): Pt has never received blood. Past Psychological History: Depression Smoking Status: Current every day smoker Past Alcohol Use History: Occasional Past Drug Use History: Marijuana - Past Family History Brother(s) Additional Family Medical History / Comment(s): He has one brother which he has no contact with. Father Family Medical History: COPD, Coronary Artery Disease (CAD) Additional Family Medical History / Comment(s): Father at age 73yrs. Mother Family Medical History: Seizure Disorder Additional Family Medical History / Comment(s): Mother was manic/depressive. She at age 51yrs. General Exam - General Exam Comments Initial Comments: General: Alert, in no acute distress Head: atraumatic normocephalic. Eyes PERRL, EOMI intact, mucous membranes moist Respiratory: Lungs clear to auscultation bilaterally Cardiovascular: Regular rate and rhythm Abdominal: Soft without guarding or rebound Extremities: Normal inspection with full range of motion and normal capillary refill, right upper thigh with 3 punctate wounds with mild tenderness. No surrounding erythema., Purulent discharge or active bleeding. Neuroogic: alert and oriented 3, CN II-XII intact, able to ambulate with steady gait Skin: warm dry and intact with normal color Limitations: no limitations Course Vital Signs 04/26/23 06:29 Temperature 98 F Pulse Rate 96 Respiratory 18 Rate Blood Pressure 132/88 O2 Sat by Pulse 95 Oximetry Medical Decision Making - Medical Decision Making Was pt. sent in by a medical professional or institution (, PA, KELP GATHERER, urgent care, hospital, or longterm...) When possible be specific @ -[No] Did you speak to anyone other than the patient for history (EMS, parent, family, police, friend...)? What history was obtained from this source @ -[No] Did you review nursing and triage notes (agree or disagree)? Why? @ -[I reviewed and agree with nursing and triage notes] Were old charts reviewed (outside hosp., previous admission, EMS record, old EKG, old radiological studies, urgent care reports/EKG's, longterm records)? Report findings @ -[No old charts were reviewed] Differential Diagnosis (chest pain, altered mental status, abdominal pain women, abdominal pain men, vaginal bleeding, weakness, fever, dyspnea, syncope, headache, dizziness, GI bleed, back pain, seizure, CVA, palpatations, mental health, musculoskeletal)? @ -[not applicable] EKG interpreted by me (3pts min.). @ -[As above] X-rays interpreted by me (1pt min.). @ -[None done] CT interpreted by me (1pt min.). @ -[None done] U/S interpreted by me (1pt. min.). @ -[None done] What testing was considered but not performed or refused? (CT, X-rays, U/S, labs)? Why? @ -[None] What meds were considered but not given or refused? Why? @ -[None] Did you discuss the management of the patient with other professionals (professionals i.e. , PA, KELP GATHERER, lab, RT, psych nurse, social work associate, freight team associate, teacher, peace officer, rn field case manager)? Give summary @ -[No] Was smoking cessation discussed for >3mins.? @ -[No] Was critical care preformed (if so, how long)? @ -[No] Were there social determinants of health that impacted care today? How? (Homelessness, low income, unemployed, alcoholism, drug addiction, transportation, low edu. Level, literacy, decrease access to med. care, nursing home, rehab)? @ -[No] Was there de-escalation of care discussed even if they declined (Discuss DNR or withdrawal of care, Hospice)? DNR status @ -[No] What co-morbidities impacted this encounter? (DM, HTN, Smoking, COPD, CAD, Cancer, CVA, ARF, Chemo, Hep., AIDS, mental health diagnosis, sleep apnea, morbid obesity)? @ -[None] Was patient admitted / discharged? Hospital course, mention meds given and route, prescriptions, significant lab abnormalities, going to OR and other pertinent info. @ -Discharged. This is a pleasant 47-year-old male who presents the emergency department with a chief complaint of abscess. Patient had a thorough history and physical exam performed. Physical exam reveals 3 punctate lesions to right upper thigh without surrounding erythema were marked tenderness or purulent discharge. They do not appear infectious in nature. Most likely consistent with hydradenitis for fever. He is provided prescription for Keflex and Bactrim. Recommend close follow-up with PCP or graduate nurse. Patient was provided a list of local primary care physicians in the area. Return precautions were discussed at length. Discharged in stable condition. Case is discussed with Dr. Martinez, ED attending who agrees with plan of care Undiagnosed new problem with uncertain prognosis? @ -[No] Drug Therapy requiring intensive monitoring for toxicity (Heparin, Nitro, Insulin, Cardizem)? @ -[No] Were any procedures done? @ -[No] Diagnosis/symptom? @ -Abscess vs. Hydradenitis Suprativa Acute, or Chronic, or Acute on Chronic? @ -Acute Uncomplicated (without systemic symptoms) or Complicated (systemic symptoms)? @ -Uncomplicated Side effects of treatment? @ -[No] Exacerbation, Progression, or Severe Exacerbation? @ -[No] Poses a threat to life or bodily function? How? (Chest pain, [place], [place], pneumonia, PE, COPD, DKA, ARF, appy, cholecystitis, CVA, Diverticulitis, Homicidal, Suicidal, threat to staff... and all critical care pts) @ -Low likelihood Disposition Clinical Impression: Abscess, Hidradenitis suppurativa Disposition: HOME SELF-CARE Condition: Stable Instructions (If sedation given, give patient instructions): Abscess (ED), Abscess Follow-up (ED) Prescriptions: Sulfamethox-Tmp 800-160Mg [Bactrim Ds] 1 each PO Q12HR #20 tab Cephalexin [Keflex] 500 mg PO TID #21 cap Is patient prescribed a controlled substance at d/c from ED?: No Referrals: None,Stated [Primary Care Provider] - 1-2 days Cristian Jiang MD [STAFF PHYSICIAN] - 1-2 days Forms: [facility] PCPs Time of Disposition: 06:49
== END 2023-04-26 07:06 | disposition home or self-care (01) ==
LOC: EC 06:19
DX: L02.415 Cutaneous abscess of right lower limb (principal); L73.2 Hidradenitis suppurativa; J44.9 Chronic obstructive pulmonary disease, unspecified; F17.200 Nicotine dependence, unspecified, uncomplicated; F12.90 Cannabis use, unspecified, uncomplicated; Z79.899 Other long term (current) drug therapy
CPT/HCPCS: 99282

== ENCOUNTER 2023-04-26 10:27 | Emergency (ER) | payer OTHER ==
[2023-04-26 10:48] VITALS: BP 133/87; PULSE 97; RESP 20; TEMP 98
== END 2023-04-26 12:47 | disposition home or self-care (01) ==
LOC: EC 10:27
DX: Z53.21 Procedure and treatment not carried out due to patient leaving prior to being seen by health care provider (principal)
CPT/HCPCS: 99499

== ENCOUNTER 2023-08-29 06:42 | Emergency (ER) | payer OTHER ==
[2023-08-29 06:52] VITALS: TEMP 98.4
--- NOTE | 2023-08-29 07:29 | ED ---
General Adult HPI - General Chief complaint: GI Bleed Stated complaint: Vomiting Time Seen by Provider: 08/29/23 06:56 Source: patient, RN notes reviewed Mode of arrival: ambulatory Limitations: no limitations - History of Present Illness Initial comments: 48-year-old male presents emergency department with chief complaint of abdominal discomfort nausea. Patient states he felt his stool was darker than usual this morning he denies any localized pain he states he just has an upset stomach states he has some reflux. Patient denies any chest pain shortness of breath headache dizziness. Patient describes his sensation throughout his body is a buzzing sensation. Patient denies any dysuria no fevers denies any blood thinners no aspirin no NSAID use. - Related Data Home Medications Medication Instructions Recorded Confirmed Albuterol Nebulized [Ventolin 2.5 mg INHALATION RT-Q4H PRN 02/18/23 02/18/23 Nebulized] Previous Rx's Medication Instructions Recorded Aspirin 81 mg PO DAILY #30 tab 09/21/22 Atorvastatin [Lipitor] 80 mg PO HS #30 tab 09/21/22 Metoprolol Tartrate [Lopressor] 25 mg PO BID #60 tab 09/21/22 Cephalexin [Keflex] 500 mg PO TID #21 cap 04/26/23 Sulfamethox-Tmp 800-160Mg [Bactrim 1 each PO Q12HR #20 tab 04/26/23 Ds] Pantoprazole Sodium [Protonix] 40 mg PO DAILY #30 tab 08/29/23 Allergies Allergy/AdvReac Type Severity Reaction Status Date / Time No Known Allergies Allergy Verified 08/29/23 06:51 Review of Systems ROS Statement: Those systems with pertinent positive or pertinent negative responses have been documented in the HPI. ROS Other: All systems not noted in ROS Statement are negative. Past Medical History Past Medical History: COPD, Memory Impairment, Osteoarthritis (OA) Additional Past Medical History / Comment(s): SEE DR CHRISTIANSEN H&P, HX OF fx's- L EFT ORBITAL ,ribs,lt hand, lt wrist as child, lt ankle. Patient has a history of headaches and fainting for the past year. some memory loss, p donates plasma 1-2 times a week. History of Any Multi-Drug Resistant Organisms: None Reported Past Surgical History: Adenoidectomy, Orthopedic Surgery, Tonsillectomy Additional Past Surgical History / Comment(s): 01/2015 LEFT ORBIT PLATES AT [facility], 11/25/08 pins and plates to left ankle after a fall injury, L knee arthroscopy, "wandering" left eye surgically repaired. TILT TABLE TEST 05-29-15. Past Anesthesia/Blood Transfusion Reactions: No Reported Reaction Additional Past Anesthesia/Blood Transfusion Reaction / Comment(s): Pt has never received blood. Past Psychological History: Depression Smoking Status: Current every day smoker Past Alcohol Use History: Occasional Past Drug Use History: Marijuana - Past Family History Brother(s) Additional Family Medical History / Comment(s): He has one brother which he has no contact with. Father Family Medical History: COPD, Coronary Artery Disease (CAD) Additional Family Medical History / Comment(s): Father at age 73yrs. Mother Family Medical History: Seizure Disorder Additional Family Medical History / Comment(s): Mother was manic/depressive. She at age 51yrs. General Exam Limitations: no limitations General appearance: alert, in no apparent distress Head exam: Present: atraumatic, normocephalic, normal inspection Neck exam: Present: normal inspection. Absent: tenderness, meningismus, lymphadenopathy Respiratory exam: Present: normal lung sounds bilaterally. Absent: respiratory distress, wheezes, rales, rhonchi, stridor Cardiovascular Exam: Present: regular rate, normal rhythm, normal heart sounds. Absent: systolic murmur, diastolic murmur, rubs, gallop, clicks GI/Abdominal exam: Present: soft, normal bowel sounds. Absent: distended, tenderness, guarding, rebound, rigid Back exam: Absent: CVA tenderness (R), CVA tenderness (L) Neurological exam: Present: alert Skin exam: Present: warm, dry, intact, normal color. Absent: rash Course Vital Signs 08/29/23 08/29/23 06:49 08:43 Temperature 98.4 F Pulse Rate 82 76 Respiratory 18 20 Rate Blood Pressure 116/79 106/53 O2 Sat by Pulse 95 96 Oximetry Medical Decision Making - Medical Decision Making Was pt. sent in by a medical professional or institution (, PA, COMBAT SYSTEMS ENGINEER, urgent care, hospital, or alf...) When possible be specific @ -No Did you speak to anyone other than the patient for history (EMS, parent, family, police, friend...)? What history was obtained from this source @ -No Did you review nursing and triage notes (agree or disagree)? Why? @ -I reviewed and agree with nursing and triage notes Were old charts reviewed (outside hosp., previous admission, EMS record, old EKG, old radiological studies, urgent care reports/EKG's, alf records)? Report findings @ -No old charts were reviewed Differential Diagnosis (chest pain, altered mental status, abdominal pain women, abdominal pain men, vaginal bleeding, weakness, fever, dyspnea, syncope, headache, dizziness, GI bleed, back pain, seizure, CVA, palpatations, mental health, musculoskeletal)? @ -Differential GI Bleed: Esophageal varices, aortoenteric fistula, Marion-Peralta, gastritis, peptic ulcer disease, diverticulosis, inflammatory bowel disease, hemorrhoids, fissure, colitis, malignancy, Meckels diverticulum, this is not meant to be an all- inclusive list. EKG interpreted by me (3pts min.). @ -As above X-rays interpreted by me (1pt min.). @ -None done CT interpreted by me (1pt min.). @ -None done U/S interpreted by me (1pt. min.). @ -None done What testing was considered but not performed or refused? (CT, X-rays, U/S, labs)? Why? @ -None What meds were considered but not given or refused? Why? @ -None Did you discuss the management of the patient with other professionals (professionals i.e. , PA, COMBAT SYSTEMS ENGINEER, lab, RT, psych nurse, director social welfare, straightedge machine operator helper, teacher, chief security and safety officer, corrections caseworker)? Give summary @ -No Was smoking cessation discussed for >3mins.? @ -No Was critical care preformed (if so, how long)? @ -No Were there social determinants of health that impacted care today? How? (Homelessness, low income, unemployed, alcoholism, drug addiction, transportation, low edu. Level, literacy, decrease access to med. care, long term, rehab)? @ -No Was there de-escalation of care discussed even if they declined (Discuss DNR or withdrawal of care, Hospice)? DNR status @ -No What co-morbidities impacted this encounter? (DM, HTN, Smoking, COPD, CAD, Cancer, CVA, ARF, Chemo, Hep., AIDS, mental health diagnosis, sleep apnea, morbid obesity)? @ -None Was patient admitted / discharged? Hospital course, mention meds given and route, prescriptions, significant lab abnormalities, going to OR and other pertinent info. @ -[Discharge patient's hemoglobin is 15.6 patient has no abdominal pain patient refuses rectal exam. Patient will be started on Protonix will follow-up with for EGD or Dr. Hernandez. Patient agrees a plan of discharge and follow-up. Undiagnosed new problem with uncertain prognosis? @ -No Drug Therapy requiring intensive monitoring for toxicity (Heparin, Nitro, Insulin, Cardizem)? @ -No Were any procedures done? @ -No Diagnosis/symptom? @ -Abdominal pain, gastritis Acute, or Chronic, or Acute on Chronic? @ -Acute Uncomplicated (without systemic symptoms) or Complicated (systemic symptoms)? @ -uncomplicated Side effects of treatment? @ -No Exacerbation, Progression, or Severe Exacerbation? @ -No Poses a threat to life or bodily function? How? (Chest pain, [place], [place], pneumonia, PE, COPD, DKA, ARF, appy, cholecystitis, CVA, Diverticulitis, Homicidal, Suicidal, threat to staff... and all critical care pts) @ -No - Lab Data Result diagrams: 08/29/23 07:33 08/29/23 07:33 Lab Results 08/29/23 08/29/23 08/29/23 Range/Units 07:33 07:33 07:33 WBC 7.4 (3.8-10.6) k/uL RBC 4.86 (4.30-5.90) m/uL Hgb 15.1 (13.0-17.5) gm/dL Hct 45.0 (39.0-53.0) % MCV 92.7 (80.0-100.0) fL MCH 31.1 (25.0-35.0) pg MCHC 33.5 (31.0-37.0) g/dL RDW 13.7 (11.5-15.5) % Plt Count 267 (150-450) k/uL MPV 7.1 Neutrophils % 68 % Lymphocytes % 18 % Monocytes % 8 % Eosinophils % 3 % Basophils % 1 % Neutrophils # 5.0 (1.3-7.7) k/uL Lymphocytes # 1.4 (1.0-4.8) k/uL Monocytes # 0.6 (0-1.0) k/uL Eosinophils # 0.2 (0-0.7) k/uL Basophils # 0.1 (0-0.2) k/uL PT 9.6 L (10.0-12.5) sec INR 0.8 (<1.2) APTT 23.5 (22.0-30.0) sec Sodium 137 (137-145) mmol/L Potassium 4.4 (3.5-5.1) mmol/L Chloride 106 (98-107) mmol/L Carbon Dioxide 27 (22-30) mmol/L Anion Gap 4 mmol/L BUN 18 (9-20) mg/dL Creatinine 1.09 (0.66-1.25) mg/dL Est GFR (CKD-EPI)AfAm >90 (>60 ml/min/1.73 sqM) Est GFR (CKD-EPI)NonAf 79 (>60 ml/min/1.73 sqM) Glucose 100 H (74-99) mg/dL Plasma Lactic Acid Devon (0.7-2.0) mmol/L Calcium 9.1 (8.4-10.2) mg/dL Total Bilirubin 0.5 (0.2-1.3) mg/dL AST 39 (17-59) U/L ALT 67 H (4-49) U/L Alkaline Phosphatase 72 (38-126) U/L Total Protein 6.2 L (6.3-8.2) g/dL Albumin 3.8 (3.5-5.0) g/dL Lipase 86 (23-300) U/L 08/29/23 Range/Units 07:33 WBC (3.8-10.6) k/uL RBC (4.30-5.90) m/uL Hgb (13.0-17.5) gm/dL Hct (39.0-53.0) % MCV (80.0-100.0) fL MCH (25.0-35.0) pg MCHC (31.0-37.0) g/dL RDW (11.5-15.5) % Plt Count (150-450) k/uL MPV Neutrophils % % Lymphocytes % % Monocytes % % Eosinophils % % Basophils % % Neutrophils # (1.3-7.7) k/uL Lymphocytes # (1.0-4.8) k/uL Monocytes # (0-1.0) k/uL Eosinophils # (0-0.7) k/uL Basophils # (0-0.2) k/uL PT (10.0-12.5) sec INR (<1.2) APTT (22.0-30.0) sec Sodium (137-145) mmol/L Potassium (3.5-5.1) mmol/L Chloride (98-107) mmol/L Carbon Dioxide (22-30) mmol/L Anion Gap mmol/L BUN (9-20) mg/dL Creatinine (0.66-1.25) mg/dL Est GFR (CKD-EPI)AfAm (>60 ml/min/1.73 sqM) Est GFR (CKD-EPI)NonAf (>60 ml/min/1.73 sqM) Glucose (74-99) mg/dL Plasma Lactic Acid Devon 1.4 (0.7-2.0) mmol/L Calcium (8.4-10.2) mg/dL Total Bilirubin (0.2-1.3) mg/dL AST (17-59) U/L ALT (4-49) U/L Alkaline Phosphatase (38-126) U/L Total Protein (6.3-8.2) g/dL Albumin (3.5-5.0) g/dL Lipase (23-300) U/L Disposition Clinical Impression: Abdominal pain, Gastritis Disposition: HOME SELF-CARE Condition: Stable Instructions (If sedation given, give patient instructions): Peptic Ulcer (ED), Gastritis (ED), Diet for Stomach Ulcers and Gastritis (ED) Additional Instructions: Please return to the Emergency Department if symptoms worsen or any other concerns. Prescriptions: Pantoprazole Sodium [Protonix] 40 mg PO DAILY #30 tab Is patient prescribed a controlled substance at d/c from ED?: No Referrals: Matthew Tejeda MD [STAFF PHYSICIAN] - 1-2 days Bindu Hernandez MD [STAFF PHYSICIAN] - 1-2 days Time of Disposition: 08:33
[2023-08-29 07:46] LABS: Basophils # (A) 0.1 k/uL (0-0.2); Basophils % (A) 1 %; Eosinophils # (A) 0.2 k/uL (0-0.7); Eosinophils % (A) 3 %; HGB 15.1 gm/dL (13.0-17.5); Lymphocytes # (A) 1.4 k/uL (1.0-4.8); Lymphocytes % (A) 18 %; MCH 31.1 pg (25.0-35.0); MCHC 33.5 g/dL (31.0-37.0); MCV 92.7 fL (80.0-100.0); Mean Platelet Volume 7.1; Monocytes # (A) 0.6 k/uL (0-1.0); Monocytes % (A) 8 %; Neutrophils % (A) 68 %; Platelet Count 267 k/uL (150-450); RBC 4.86 m/uL (4.30-5.90); RDW 13.7 % (11.5-15.5); WBC 7.4 k/uL (3.8-10.6)
[2023-08-29] MEDS: METOCLOPRAMIDE 5 MG/ML 2 ML VIAL IVP STA (07:46)
[2023-08-29] MEDS: PANTOPRAZOLE 40 MG/10 ML VIAL IVP STA (07:47)
[2023-08-29 07:58] LABS: INR 0.8 (<1.2); Partial Thromboplastin Time 23.5 sec (22.0-30.0); Prothrombin Time 9.6 sec (10.0-12.5)
[2023-08-29 08:10] LABS: ALT 67 U/L (4-49); AST 39 U/L (17-59); African American GFR (CKD) >90 (>60 ml/min/1.73 sqM); Albumin 3.8 g/dL (3.5-5.0); Alkaline Phosphatase 72 U/L (38-126); Anion Gap 4 mmol/L; Blood Urea Nitrogen 18 mg/dL (9-20); Calcium 9.1 mg/dL (8.4-10.2); Carbon Dioxide 27 mmol/L (22-30); Chloride 106 mmol/L (98-107); Glucose 100 mg/dL (74-99); Lipase 86 U/L (23-300); Non-African American GFR(CKD) 79 (>60 ml/min/1.73 sqM); Potassium 4.4 mmol/L (3.5-5.1); Sodium 137 mmol/L (137-145); Total Bilirubin 0.5 mg/dL (0.2-1.3); Total Protein 6.2 g/dL (6.3-8.2)
[2023-08-29 09:07] VITALS: BP 106/53; PULSE 76; RESP 20
== END 2023-08-29 08:49 | disposition home or self-care (01) ==
LOC: EC 06:42
DX: K29.70 Gastritis, unspecified, without bleeding (principal); F17.200 Nicotine dependence, unspecified, uncomplicated; F12.90 Cannabis use, unspecified, uncomplicated
CPT/HCPCS: 36415; 80053; 83605; 83690; 85025; 85610; 85730; 99285; 96374; 96375; J2765; C9113

== ENCOUNTER → 2023-09-16 | Outpatient (CLI) | payer OTHER ==
--- NOTE | 2023-09-18 21:03 | NM ---
EXAMINATION TYPE: NM hepatobiliary w CCK DATE OF EXAM: 09/16/2023 COMPARISON: NONE CLINICAL INDICATION: Male, 48 years old with history of R10.84 GENERALIZED ABDOMINAL PAIN; TECHNIQUE: After the intravenous administration of 5 mCi Tc 99m Mebrofenin hepatobiliary scintigraphy is performed. Immediate images post injection. FINDINGS: There is satisfactory initial accumulation of tracer by the liver. The gallbladder is visualized wit hin 30 minutes. The small bowel activity is noted within 8 minutes. At one hour CCK was administere d, patient was injected with 2.7 mcg of Kinevac, and gallbladder ejection fraction is calculated at 8 7 %, elevated above the expected range (35-80%). IMPRESSION: 1. No scintigraphic evidence for acute/chronic cholecystitis or biliary dyskinesia. 2. Increased gallbladder ejection fraction which may be seen with gallbladder hyperkinesis.
== END | disposition home or self-care (01) ==
LOC: RADNMMAIN 06:31
PROVIDERS: ATTEND Surgery
DX: K82.8 Other specified diseases of gallbladder (principal)
CPT/HCPCS: 78227; A9537; J2805

== ENCOUNTER → 2023-09-19 | Day surgery (SDC) | payer OTHER ==
[2023-09-12 12:05] VITALS: BMI 39.5
[~2023-09-19] MED LIST changes: -ACETAMINOPHEN TAB 500 MG TAB PO PRN; -DEXAMETHASONE SOD PHOSPHATE 4 MG/ML 1 ML VIAL IV ONE; -HEPARIN SODIUM,PORCINE/PF 5,000 UNIT/0.5 ML SYRINGE SQ PRN; -HYDROmorphone 0.5 MG/0.5 ML SYRINGE IVP PRN; -LACTATED RINGERS 1,000 ML IV SCH; +LIDOCAINE 1% INJ 10MG/ML (20 ML MDV) ONE; -ONDANSETRON 4 MG/2 ML VIAL IVP ONE; +PROPOFOL 10 MG/ML 20 ML VIAL IV ONE; -SCOPOLAMINE 1.5MG/72HR PATCH TRANSDERM ONE; -ceFAZolin 3 GM in SODIUM CHLORIDE 0.9% 100 ML IVPB PRN
[2023-09-19] MEDS: LACTATED RINGERS 1,000 ML IV SCH (10:01)
[2023-09-19 10:18] VITALS: TEMP 97.1
--- NOTE | 2023-09-19 11:16 | P.GSHP ---
History of Present Illness H&P Date: 09/19/23 Chief Complaint: GERD this a 48-year-old male with history of GERD. Patient presents today for EGD. Past Medical History Past Medical History: COPD, Memory Impairment, Osteoarthritis (OA) Additional Past Medical History / Comment(s): HX OF fx's- LEFT ORBITAL ,ribs,lt hand, lt wrist as child, lt ankle. Patient has a history of headaches and fainting for the past year. some memory loss, p donates plasma 1-2 times a week. History of Any Multi-Drug Resistant Organisms: None Reported Past Surgical History: Adenoidectomy, Orthopedic Surgery, Tonsillectomy Additional Past Surgical History / Comment(s): 01/2015 LEFT ORBIT PLATES AT [facility], 11/25/08 pins and plates to left ankle after a fall injury, L knee arthroscopy, "wandering" left eye surgically repaired. TILT TABLE TEST 05-29-15. vaso vagal from stress per neurologist Past Anesthesia/Blood Transfusion Reactions: No Reported Reaction Additional Past Anesthesia/Blood Transfusion Reaction / Comment(s): Pt has never received blood. Smoking Status: Current every day smoker - Past Family History Brother(s) Additional Family Medical History / Comment(s): He has one brother which he has no contact with. Father Family Medical History: COPD, Coronary Artery Disease (CAD) Additional Family Medical History / Comment(s): Father at age 73yrs. Mother Family Medical History: Seizure Disorder Additional Family Medical History / Comment(s): Mother was manic/depressive. She at age 51yrs. Medications and Allergies Home Medications Medication Instructions Recorded Confirmed Type No Known Home Medications 09/19/23 09/19/23 History Allergies Allergy/AdvReac Type Severity Reaction Status Date / Time No Known Allergies Allergy Verified 09/19/23 10:00 Surgical - Exam Vital Signs Temp Pulse Resp BP Pulse Ox 97.1 F L 79 18 130/80 96 09/19/23 09:57 09/19/23 09:57 09/19/23 09:57 09/19/23 09:57 09/19/23 09:57 - General well developed, well nourished, no distress - Eyes PERRL - ENT normal pinna - Neck no masses - Respiratory normal expansion - Cardiovascular Rhythm: regular - Abdomen Abdomen: soft, non tender Assessment and Plan Assessment: GERD. We'll perform EGD.
--- NOTE | 2023-09-19 11:29 | P.OP ---
Date of Procedure: 09/19/23 Preoperative Diagnosis: GERD Postoperative Diagnosis: antral gastritis Procedure(s) Performed: EGD Anesthesia: ROSEY MANTILLA Surgeon: Matthew Tejeda Pathology: other (antrum) Condition: stable Disposition: PACU Description of Procedure: the patient's placed on the endoscopy table in the lateral position. He received IV sedation. The gastro-was placed oropharynx passed in the esophagus and stomach. Scope was placed through the pylorus. The first second portion of the duodenum appeared normal. Scope was brought back the antrum this was minimal inflamed. A biopsies performed. Scope was then retroflexed and the remainder of the stomach appeared normal. The GE junction was at 40 cm. The distal esophagus appeared normal. The proximal esophagus.. Scope withdrawn for patient.
[2023-09-19 11:56] VITALS: BP 145/90; PULSE 76; RESP 16
== END | disposition home or self-care (01) ==
LOC: ORWHC2ENDO 09:14
PROVIDERS: ATTEND Surgery
DX: K29.50 Unspecified chronic gastritis without bleeding (principal); K21.9 Gastro-esophageal reflux disease without esophagitis; J44.9 Chronic obstructive pulmonary disease, unspecified; Z90.89 Acquired absence of other organs; Z90.49 Acquired absence of other specified parts of digestive tract; F17.200 Nicotine dependence, unspecified, uncomplicated; Z82.49 Family history of ischemic heart disease and other diseases of the circulatory system; Z98.890 Other specified postprocedural states; Z79.899 Other long term (current) drug therapy
CPT/HCPCS: 88305; 88342; 43239; J2001; J2704

== ENCOUNTER 2023-10-17 07:58 | Day surgery (SDC) | payer OTHER ==
[~2023-10-17 07:58] MED LIST changes: +HYDROmorphone 0.5 MG/0.5 ML SYRINGE IVP PRN; -LIDOCAINE 1% INJ 10MG/ML (20 ML MDV) ONE; -PROPOFOL 10 MG/ML 20 ML VIAL IV ONE
[2023-10-17] MEDS: IV FLUID CONTINUATION 1,000 ML IV ONE ×2 (08:44→11:13)
[2023-10-17] MEDS: LACTATED RINGERS 1,000 ML IV SCH (08:45)
[2023-10-17] MEDS: ONDANSETRON 4 MG/2 ML VIAL IVP ONE (09:00)
[2023-10-17] MEDS: DEXAMETHASONE SOD PHOSPHATE 4 MG/ML 1 ML VIAL IV ONE (09:01)
[2023-10-17] MEDS: FAMOTIDINE 20 MG/2 ML VIAL IV STA (09:11)
[2023-10-17] MEDS: ACETAMINOPHEN TAB 500 MG TAB PO STA (09:24)
[2023-10-17] MEDS: HEPARIN SODIUM,PORCINE 5,000 UNIT/ML 1 ML VIAL SQ STA (09:25)
[2023-10-17] MEDS ORDERED: GLYCOPYRROLATE 0.2 MG/ML 2 ML VIAL ONE (09:44)
[2023-10-17] MEDS ORDERED: MIDAZOLAM 2 MG/2 ML VIAL ONE (09:44)
[2023-10-17] MEDS ORDERED: fentaNYL (PF) 50 MCG/ML 2 ML AMP ONE (09:44)
[2023-10-17] MEDS ORDERED: KETOROLAC 15 MG/ML 1 ML VIAL ONE (09:44)
[2023-10-17] MEDS ORDERED: SUCCINYLCHOLINE CHLORIDE 200 MG/10 ML VIAL IV ONE (09:44)
[2023-10-17] MEDS ORDERED: PROPOFOL 10 MG/ML 20 ML VIAL IV ONE (09:44)
[2023-10-17] MEDS ORDERED: LIDOCAINE 1% INJ 10MG/ML (20 ML MDV) ONE (09:44)
[2023-10-17] MEDS ORDERED: ROCURONIUM 10 MG/ML (5 ML VIAL) IV ONE (09:44)
[2023-10-17] MEDS ORDERED: NEOSTIGMINE 1 MG/ML 10 ML VIAL ONE (09:44)
[2023-10-17] MEDS: ceFAZolin 3 GM in SODIUM CHLORIDE 0.9% 100 ML IVPB PRN (09:47)
[2023-10-17] MEDS: LIDOCAINE 1%-EPI 1:100,000 20 ML VIAL SQ ONE (10:11)
[2023-10-17 10:45] VITALS: TEMP 98.2
[2023-10-17] MEDS: droPERidol 5 MG/2 ML VIAL IVP ONE (10:49)
[2023-10-17 11:28] VITALS: RESP 16
[2023-10-17 11:44] VITALS: BP 108/61; PULSE 87
--- NOTE | 2023-10-17 17:06 | P.OP ---
Date of Procedure: 10/17/23 Preoperative Diagnosis: cholecystitis Postoperative Diagnosis: cholecystitis Procedure(s) Performed: laparoscopic cholecystectomy Anesthesia: JOSE RAFAEL Surgeon: Matthew Tejeda Estimated Blood Loss (ml): 5 Pathology: other (gallbladder) Condition: stable Disposition: PACU Description of Procedure: The patient was placed on the operating table. The patient received a general endotracheal tube anesthesia. The patients abdomen was prepped and draped in the usual sterile fashion. Through an infraumbilical stab incision, the fascia of the anterior abdominal wall was grasped with a pair of Kochers and then the Veress needle was placed in the peritoneal cavity. Position of the Veress needle was confirmed with positive drop test. The abdomen was then insufflated. After adequate insufflation, the 10 mm trocar was placed in the peritoneal cavity. Following this the laparoscope was placed in the peritoneal cavity. The patient was placed in the head-up, right side up position and then a 5 mm trocar was placed in the right lateral and right subcostal position under direct visualization. A 8 mm trocar was placed in the epigastric position. The gallbladder was grasped in the fundus and infundibulum. Traction on the gallbladder was placed in the lateral and the cephalad positions. The triangle of Calot was visualized.. The cystic duct was bluntly dissected until the union of the cystic duct and common bile duct was seen. A critical view of safety was achieved. The cystic duct was then divided and sealed with the Harmonic scissors. A PDS Endoloop was then placed throughout the cystic duct stump. The cystic artery divided and sealed with the Harmonic scissors. The gallbladder was then removed from the liver bed using Harmonic scissors. The gallbladder was then extracted through the epigastric port site. Operative field was checked for any bleeding spots and Harmonic scissors was used to coagulate the liver bed. The abdomen was irrigated. The trocars were removed. The skin was closed using interrupted 3-0 Vicryl suture. Dermabond dressing were applied. The patient tolerated the procedure well.
== END 2023-10-17 12:14 | disposition home or self-care (01) ==
LOC: OR 07:58
PROVIDERS: ATTEND Surgery
DX: K81.1 Chronic cholecystitis (principal); J44.9 Chronic obstructive pulmonary disease, unspecified; M19.90 Unspecified osteoarthritis, unspecified site; F32.A Depression, unspecified; K21.9 Gastro-esophageal reflux disease without esophagitis; F10.90 Alcohol use, unspecified, uncomplicated; F17.210 Nicotine dependence, cigarettes, uncomplicated; Z98.890 Other specified postprocedural states
CPT/HCPCS: 88304; 47562; J2250; J0330; J1644; J1100; J2710; J0690; J2405; J2001; J3010; J3490; J1885; J2704; J1790

== ENCOUNTER → 2024-01-05 | Outpatient (CLI) | payer OTHER ==
--- NOTE | 2024-01-05 10:43 | US ---
EXAMINATION TYPE: US abdomen complete DATE OF EXAM: 01/05/2024 COMPARISON: NONE CLINICAL INDICATION: Male, 48 years old with history of Elevated LFTs R79.89; recent diagnosis of col on ca, elevated lft's, no symptoms, obese patient, cholecystectomy TECHNIQUE: Multiple sonographic images of the abdomen are obtained. FINDINGS: EXAM MEASUREMENTS: Liver Length: 22.1 cm Gallbladder: Surgically absent CBD: 0.6 cm Spleen: 14.47 cm Right Kidney: 10.7 x 5.0 x 5.5 cm Left Kidney: 11.4 x 5.0 x 6.5 cm GLASS VIAL BENDING CONVEYOR FEEDER NOTES: habitus and bowel gas limits exam Pancreas: portions seen appear wnl Liver: difficult to penetrate, enlarged. No focal lesion identified. Some limitation due to some theresa m attenuation. Gallbladder: Surgically absent Evidence for sonographic Amador's sign: no CBD: wnl Spleen: enlarged Right Kidney: wnl Left Kidney: wnl Upper IVC: wnl Abd Aorta: wnl IMPRESSION: 1. Hepatomegaly at 22.1 cm with severe hepatic steatosis. Appropriate clinical management is advised. 2. Bile duct borderline in caliber at 6 mm, likely due to chronic postcholecystectomy status. 3. Mild splenomegaly at 14.5 cm.
== END | disposition home or self-care (01) ==
LOC: RADUSWWP 06:48
PROVIDERS: ATTEND Family Medicine
DX: K76.0 Fatty (change of) liver, not elsewhere classified (principal); R16.2 Hepatomegaly with splenomegaly, not elsewhere classified; R79.89 Other specified abnormal findings of blood chemistry; Z90.49 Acquired absence of other specified parts of digestive tract
CPT/HCPCS: 76700

== ENCOUNTER → 2024-03-13 | Outpatient (CLI) | payer OTHER ==
--- NOTE | 2024-03-13 14:52 | CTL ---
EXAMINATION TYPE: CT Low Dose Lung DATE OF EXAM: 03/13/2024 2:43 PM COMPARISON: 10/12/2018. CLINICAL INDICATION: Male, 48 years old with history of Z12.2 LUNG CA SCR F17.210 CURRENT SMOKER; Cur rent smoker. [id number]., history of tobacco use. TECHNIQUE: Multiple axial non-contrast scans were obtained from approximately the lung apices through the upper abdomen. Coronal and sagittal reformatted images were obtained. Low dose technique was uti lized. MIP were created on a separate workstation and submitted for review. CT DLP: 149.1 mGycm, Automated exposure control for dose reduction was used. CT Contrast: Contrast used: None Oral contrast used: None FINDINGS: Lack of intravenous contrast and low dose technique limits the evaluation of the vascular and soft ti ssue structures. LUNGS: No evidence of pulmonary fibrosis. No evidence of focal consolidation, pneumothorax or pleural effusion. Centrilobular emphysema changes. Nodules: RUL: None. RML: None. RLL: None. GLADIS: None. LLL: None. AIRWAY: Patent and unremarkable. HEART: Size within normal limits. MEDIASTINUM: No gross evidence of adenopathy. VASCULATURE: No aortic aneurysm. MUSCULOSKELETAL: No acute osseous abnormalities, multiple right-sided remote rib injuries. SOFT TISSUES/LYMPH NODES: Unremarkable. LOWER NECK: No significant findings. UPPER ABDOMEN: No significant findings. IMPRESSION: 1. No clinically significant pulmonary nodules. 2. Mild emphysema. CT LUNG RAD AND CT CHEST RECOMMENDATION: Lung-Rad 1 Negative: Continue annual screening with LDCT in 12 months. S Modifier (other clinically significant findings): None Recommend smoking cessation (if current smoker), or continuation of smoking cessation (if prior smoke r). Annual screening for lung cancer with low-dose computed tomography is recommended in adults ages 55 to 77 years who have a 30 pack-year smoking history and currently smoke or have quit within the pa st 15 years. Screening should be discontinued once a person has not smoked for 15 years or develops a health problem that substantially limits life expectancy or the ability or willingness to have curat coby lung surgery. Lung rads 2021 [email or web address] [facility], , 03/13/2024 2:49 PM
== END | disposition home or self-care (01) ==
LOC: RADCTMAIN 14:17
PROVIDERS: ATTEND Family Medicine
DX: Z12.2 Encounter for screening for malignant neoplasm of respiratory organs (principal); J43.9 Emphysema, unspecified; J43.2 Centrilobular emphysema; F17.210 Nicotine dependence, cigarettes, uncomplicated
CPT/HCPCS: 71271

== ENCOUNTER → 2024-03-19 | Outpatient (CLI) | payer OTHER ==
[2024-03-19 15:44] LABS: ALT 82 U/L (10-49); AST 46 U/L (14-35); Albumin/Globulin Ratio 1.82 Ratio (1.60-3.17); Alkaline Phosphatase 81 U/L (41-126); Basophils # (A) 0.07 X 10*3/uL (0.00-0.10); Blood Urea Nitrogen 10.3 mg/dL (9.0-27.0); Calcium 9.1 mg/dL (8.7-10.3); Carbon Dioxide 23.4 mmol/L (21.6-31.8); Chloride 106 mmol/L (96-109); Eosinophils # (A) 0.23 X 10*3/uL (0.04-0.35); Eosinophils % (A) 3.2 %; Globulin 2.2 g/dL (1.6-3.3); Glucose 146 mg/dL (70-110); HCT 45.9 % (39.6-50.0); HGB 15.6 g/dL (13.0-17.0); Lymphocytes # (A) 1.37 X 10*3/uL (0.90-5.00); Lymphocytes % (A) 18.8 %; MCH 31.5 pg (27.0-32.0); MCV 92.5 FL (80.0-97.0); Mean Platelet Volume 9.9 FL (9.5-12.2); Monocytes # (A) 0.61 X 10*3/uL (0.20-1.00); Monocytes % (A) 8.4 %; NRBC Per 100 WBC 0 X 10*3/uL (0.00-0.01); Neutrophils # (A) 4.95 X 10*3/uL (1.80-7.70); Platelet Count 254 X 10*3/uL (140-440); Potassium 4.4 mmol/L (3.5-5.5); RBC 4.96 X 10*6/uL (4.40-5.60); RDW 13.2 % (11.5-14.5); Sodium 140 mmol/L (135-145); Total Bilirubin 0.3 mg/dL (0.3-1.2); Total Protein 6.2 g/dL (6.2-8.2); WBC 7.27 X 10*3/uL (4.50-10.00)
== END | disposition home or self-care (01) ==
LOC: LABWHC1 09:31
PROVIDERS: ATTEND Internal Medicine Gastroenterology
DX: R74.8 Abnormal levels of other serum enzymes (principal)
CPT/HCPCS: 36415; 80053; 81596; 82103; 85025

== ENCOUNTER 2024-03-20 07:35 | Emergency (ER) | payer OTHER ==
[2024-03-20 07:56] VITALS: TEMP 99.5
--- NOTE | 2024-03-20 07:57 | ED ---
General Adult HPI - General Chief complaint: Upper Respiratory Infection Stated complaint: headache,congestion Time Seen by Provider: 03/20/24 07:40 Source: patient, RN notes reviewed, old records reviewed Mode of arrival: ambulatory Limitations: no limitations - History of Present Illness Initial comments: This is a 48-year-old male who presents to the emergency department complaining that for the last 2 days has had a sore throat some bodyaches and a cough. Patient states he has not had the flu shot. Patient denies any fever chills but he does not have a thermometer. Patient Nuys chest pain or difficulty breathing shortness of breath. Patient has abdominal pain patient has nausea vomiting diarrhea. - Related Data Home Medications Medication Instructions Recorded Confirmed Acetaminophen Tab [Tylenol] 650 mg PO Q6H PRN 01/25/24 Atorvastatin [Lipitor] 20 mg PO DAILY 01/25/24 metFORMIN HCL ER [Glucophage XR] 500 mg PO HS 01/25/24 Previous Rx's Medication Instructions Recorded Ibuprofen [Motrin] 600 mg PO Q6HR PRN #40 tab 10/17/23 Allergies Allergy/AdvReac Type Severity Reaction Status Date / Time No Known Allergies Allergy Verified 01/25/24 10:27 Review of Systems ROS Statement: Those systems with pertinent positive or pertinent negative responses have been documented in the HPI. ROS Other: All systems not noted in ROS Statement are negative. Past Medical History Past Medical History: COPD, Memory Impairment, Osteoarthritis (OA) Additional Past Medical History / Comment(s): HX OF fx's- LEFT ORBITAL ,ribs,lt hand, lt wrist as child, lt ankle fatty liver. Patient has a history of headaches and fainting for the past year. some memory loss, p donates plasma 1-2 times a week. History of Any Multi-Drug Resistant Organisms: None Reported Past Surgical History: Adenoidectomy, Cholecystectomy, Orthopedic Surgery, Tonsillectomy Additional Past Surgical History / Comment(s): 01/2015 LEFT ORBIT PLATES AT [facility], 11/25/08 pins and plates to left ankle after a fall injury, L knee arthroscopy, "wandering" left eye surgically repaired. TILT TABLE TEST 121-16. vaso vagal from stress per neurologist Past Anesthesia/Blood Transfusion Reactions: No Reported Reaction Additional Past Anesthesia/Blood Transfusion Reaction / Comment(s): Pt has never received blood. Past Psychological History: Depression Smoking Status: Current every day smoker - Past Family History Brother(s) Additional Family Medical History / Comment(s): He has one brother which he has no contact with. Father Family Medical History: COPD, Coronary Artery Disease (CAD) Additional Family Medical History / Comment(s): Father at age 73yrs. Mother Family Medical History: Seizure Disorder Additional Family Medical History / Comment(s): Mother was manic/depressive. She at age 51yrs. General Exam - General Exam Comments Initial Comments: GENERAL: Patient is well-developed and well-nourished. Patient is nontoxic and well- hydrated and is in mild distress. ENT: Neck is soft and supple. No significant lymphadenopathy is noted. Oropharynx is clear. Moist mucous membranes. Neck has full range of motion without eliciting any pain. EYES: The sclera were anicteric and conjunctiva were pink and moist. Extraocular movements were intact and pupils were equal round and reactive to light. Eyelids were unremarkable. PULMONARY: Unlabored respirations. Good breath sounds bilaterally. No audible rales rhonchi or wheezing was noted. CARDIOVASCULAR: There is a regular rate and rhythm without any murmurs gallops or rubs. ABDOMEN: Soft and nontender with normal bowel sounds. SKIN: Skin is clear with no lesions or rashes and otherwise unremarkable. NEUROLOGIC: Patient is alert and oriented x3. Cranial nerves II through XII are grossly intact. Motor and sensory are also intact. Normal speech, volume and content. Symmetrical smile. MUSCULOSKELETAL: Normal extremities with adequate strength and full range of motion. LYMPHATICS: Anterior lymphadenopathy PSYCHIATRIC: Normal psychiatric evaluation. Limitations: no limitations Course Vital Signs 03/20/24 03/20/24 07:36 07:48 Temperature 97.9 F 99.5 F Pulse Rate 992 H Respiratory 16 Rate Blood Pressure 138/89 O2 Sat by Pulse 97 Oximetry Medical Decision Making - Medical Decision Making Was pt. sent in by a medical professional or institution ([facility], HEALTH DATA ANALYST, urgent care, hospital, or correction...) When possible be specific @ -No Did you speak to anyone other than the patient for history (EMS, parent, family, police, friend...)? What history was obtained from this source @ -No Did you review nursing and triage notes (agree or disagree)? Why? @ -I reviewed and agree with nursing and triage notes Were old charts reviewed (outside hosp., previous admission, EMS record, old EKG, old radiological studies, urgent care reports/EKG's, correction records)? Report findings @ -No old charts were reviewed Differential Diagnosis? @ -Viral syndrome, bronchitis, pneumonia, influenza A, influenza B, RSV, COVID, this is not an all-inclusive list EKG interpreted by me (3pts min.). @ - X-rays interpreted by me (1pt min.). @ -Chest x-ray shows no acute abnormality CT interpreted by me (1pt min.). @ -None done U/S interpreted by me (1pt. min.). @ -None done What testing was considered but not performed or refused? (CT, X-rays, U/S, labs)? Why? @ -None What meds were considered but not given or refused? Why? @ -None Did you discuss the management of the patient with other professionals (professionals i.e. , PA, HEALTH DATA ANALYST, lab, RT, psych nurse, psychiatric social worker, vehicle glass technician, teacher, commercial escrow officer, family service caseworker)? Give summary @ -No Was smoking cessation discussed for >3mins.? @ -No Was critical care preformed (if so, how long)? @ -No Were there social determinants of health that impacted care today? How? (Homelessness, low income, unemployed, alcoholism, drug addiction, transportation, low edu. Level, literacy, decrease access to med. care, residential, rehab)? @ -No Was there de-escalation of care discussed even if they declined (Discuss DNR or withdrawal of care, Hospice)? DNR status @ -No What co-morbidities impacted this encounter? (DM, HTN, Smoking, COPD, CAD, Cancer, CVA, ARF, Chemo, Hep., AIDS, mental health diagnosis, sleep apnea, morbid obesity)? @ -None Was patient admitted / discharged? Hospital course, mention meds given and route, prescriptions, significant lab abnormalities, going to OR and other pertinent info. @ -Patient was in no significant distress in the emergency department. Chest x- ray was normal. All viral swabs were normal. Patient was oxygenating well will be discharged home with a diagnosis of URI and told to follow-up if symptoms worsen Undiagnosed new problem with uncertain prognosis? @ -No Drug Therapy requiring intensive monitoring for toxicity (Heparin, Nitro, Insulin, Cardizem)? @ -No Were any procedures done? @ -No Diagnosis/symptom? @ -Upper respiratory infection Acute, or Chronic, or Acute on Chronic? @ -Acute Uncomplicated (without systemic symptoms) or Complicated (systemic symptoms)? @ -Uncomplicated Side effects of treatment? @ -No Exacerbation, Progression, or Severe Exacerbation? @ -No Poses a threat to life or bodily function? How? (Chest pain, USA, SD, pneumonia, PE, COPD, DKA, ARF, appy, cholecystitis, CVA, Diverticulitis, Homicidal, Suicidal, threat to staff... and all critical care pts) @ -No - Lab Data Lab Results 03/20/24 03/20/24 Range/Units 07:56 07:56 Influenza Type A (PCR) Not Detected (Not Detectd) Influenza Type B (PCR) Not Detected (Not Detectd) RSV (PCR) Not Detected (Not Detectd) SARS-CoV-2 (PCR) Not Detected (Not Detectd) Group A Strep (PCR) NOT DETECTED (Not Detectd) Disposition Clinical Impression: Upper respiratory tract infection Disposition: HOME SELF-CARE Condition: Good Instructions (If sedation given, give patient instructions): Upper Respiratory Infection (ED) Is patient prescribed a controlled substance at d/c from ED?: No Referrals: Nilsa Rand MD [Primary Care Provider] - 1-2 days Time of Disposition: 08:49
[2024-03-20] MEDS: ACETAMINOPHEN TAB 500 MG TAB PO STA (08:01)
[2024-03-20] MEDS: IBUPROFEN 600 MG TAB PO STA (08:01)
--- NOTE | 2024-03-20 08:39 | XR ---
EXAMINATION TYPE: XR chest 2V DATE OF EXAM: 03/20/2024 8:33 AM COMPARISON: None CLINICAL INDICATION: Male, 48 years old with history of Difficulty breathing ; TECHNIQUE: XR chest 2V Frontal and lateral views of the chest. FINDINGS: Lungs/Pleura: There is no evidence of pleural effusion, focal consolidation, or pneumothorax. Pulmonary vascularity: Unremarkable. Heart/mediastinum: Cardiomediastinal silhouette is unremarkable. Musculoskeletal: No acute osseous pathology. IMPRESSION: No acute cardiopulmonary disease/process. [facility], , 03/20/2024 8:37 AM
[2024-03-20 09:00] VITALS: BP 123/77; PULSE 82; RESP 18
== END 2024-03-20 08:59 | disposition home or self-care (01) ==
LOC: EC 07:35
DX: J06.9 Acute upper respiratory infection, unspecified (principal); F17.200 Nicotine dependence, unspecified, uncomplicated
CPT/HCPCS: 71046; 87636; 87651; 99284

== ENCOUNTER → 2024-04-02 | Outpatient (CLI) | payer OTHER ==
[2024-04-02 11:20] VITALS: BP 124/86; PULSE 87; RESP 20; TEMP 98.2
--- NOTE | 2024-04-02 11:41 | P.SLEEP ---
History of Present Illness DATE: 04/02/2024 CONSULTATION/NEW PATIENT EVALUATION HISTORY OF PRESENT ILLNESS/SLEEP-WAKE EVALUATION: 48-year-old gentleman had been evaluated in the sleep center for possible obstructive sleep apnea hypopnea syndrome. SLEEP SCHEDULE: Usually sleep schedule from 7:30 PM to 4:30 AM 7 days a week. FALLING ASLEEP: Patient does have problems with falling asleep, has TV set in bedroom. DURING SLEEP: Patient usually sleeps on the side position with snoring and awakenings from sleep every 1 to 1-1/2-hour. A lot of movements during the sleep. Positive history of gasping for air sweating, episodes of choking and nocturia. No history of hypnogogical hallucinations, sleep paralysis, or cataplexy. DURING THE DAY/WAKE STATE: During the day patient has difficulties to pay attention, has problems with memory, concentration, depression and anxiety.. [place] sleepiness scale is 6. Sometimes patient takes nap at 1 PM. PAST MEDICAL HISTORY: Fatty liver, prediabetes. PAST SURGICAL HISTORY: Cholecystectomy, tonsillectomy. MEDICATIONS: Have been reviewed, please see below. SOCIAL HISTORY: Please see below. FAMILY HISTORY: Please see below. REVIEW OF SYSTEMS: Snoring, multiple awakenings from sleep, episodes of sleepiness during the day. No fevers. No double vision. No recent chest pain. No shortness of breath. No abdominal pain. No bleeding episodes. No blood in urine. No seizure episodes. PHYSICAL EXAMINATION: GENERAL: A pleasant patient without any distress. VITAL SIGNS: Please see below, weight 302.4 pounds, BMI 42.1. HEENT: PERRLA, EOMI. Evaluation of oropharynx showed tongue protrudes midline, low position of soft palate Mallampati 4. NECK: Supple. No JVD. Thyroid is not palpable. 19 inches in circumference. LUNGS: Clear to percussion and to auscultation. Good air exchange. No wheezing or rhonchi. HEART: S1, S2 regular. No murmurs, gallops or rubs. ABDOMEN: Soft and nontender. Bowel sounds are present. No organomegaly appreciated. EXTREMITIES: No clubbing or cyanosis. FOOD SCIENCE PROFESSOR: Awake, alert, and oriented x3. Cranial nerves 2 to 7 intact. There is no fasciculation or atrophy noted. No focal deficits observed. ASSESSMENT: 1. Snoring, multiple awakenings from sleep, extremely low position of soft palate Mallampati 4, wide neck 19 inches in circumference, episodes of sleepiness. Obstructive sleep apnea hypopnea syndrome. 2. Significant amount of movements during the sleep, rule out periodic limb movements. 3. History of fatty liver. 4. Obesity, BMI 42.1. 5 . History of Prediabetes. 6 . Status post tonsillectomy in childhood. 7. Status post cholecystectomy. PLAN: 1. Polysomnography for evaluation of patient's breathing during sleep. 2. Following plan after reading sleep study. 3. Preferable position during sleep on the side. 4. No driving if patient feels any sleepiness. Patient is aware of civil and criminal liability for unsafe driving. 5. Sleep hygiene with regular sleep time for at least 7.5-8 hours. 6. Watching and losing weight. Thank you very much for referring this patient for consultation. Sincerely, Matthew Nelson MD, PhD, FAASM. Diplomat of [place] [employer], Sleep Medicine Board by [place] [employer] [place] [employer] [facility] T[facility] [place] cc: Nilsa Rand MD Past Medical History Past Medical History: COPD, Memory Impairment, Osteoarthritis (OA) Additional Past Medical History / Comment(s): HX OF fx's- LEFT ORBITAL ,ribs,lt hand, lt wrist as child, lt ankle fatty liver. Patient has a history of headaches and fainting for the past year. some memory loss, p donates plasma 1-2 times a week. History of Any Multi-Drug Resistant Organisms: None Reported Past Surgical History: Adenoidectomy, Cholecystectomy, Orthopedic Surgery, Tonsillectomy Additional Past Surgical History / Comment(s): 01/2015 LEFT ORBIT PLATES AT [facility], 11/25/08 pins and plates to left ankle after a fall injury, L knee arthroscopy, "wandering" left eye surgically repaired. TILT TABLE TEST 05-29-15. vaso vagal from stress per neurologist Past Anesthesia/Blood Transfusion Reactions: No Reported Reaction Additional Past Anesthesia/Blood Transfusion Reaction / Comment(s): Pt has never received blood. Past Psychological History: Depression Additional Psychological History / Comment(s): . Smoking Status: Current every day smoker Past Alcohol Use History: Occasional Additional Past Alcohol Use History / Comment(s): STARTED SMOKING 1987 -SMOKES 1/2 PPD. 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 do not use 24 hors prior to procedure - Past Family History Brother(s) Additional Family Medical History / Comment(s): He has one brother which he has no contact with. Father Family Medical History: COPD, Coronary Artery Disease (CAD) Additional Family Medical History / Comment(s): Father at age 73yrs. Mother Family Medical History: Seizure Disorder Additional Family Medical History / Comment(s): Mother was manic/depressive. She at age 51yrs. Medications and Allergies Home Medications Medication Instructions Recorded Confirmed Type Ibuprofen [Motrin] 600 mg PO Q6HR PRN #40 tab 10/17/23 01/25/24 Rx Acetaminophen Tab [Tylenol] 650 mg PO Q6H PRN 01/25/24 History Atorvastatin [Lipitor] 20 mg PO DAILY 01/25/24 History metFORMIN HCL ER [Glucophage XR] 500 mg PO HS 01/25/24 04/02/24 History Semaglutide [Wegovy] 0.25 mg SQ 04/02/24 History Allergies Allergy/AdvReac Type Severity Reaction Status Date / Time No Known Allergies Allergy Verified 01/25/24 10:27 Physical Exam Vitals: Vital Signs Temp Pulse Resp BP Pulse Ox 04/02/24 11:18 98.2 F 87 20 124/86 96 Intake and Output 04/01/24 04/02/24 04/02/24 22:59 06:59 14:59 Other: Weight 136.985 kg Sleep Note - Sleep Data ESS Total: 6 - Sleep Note Sleep Note: Temperature: 98.2 F Pulse Rate: 87 Respiratory Rate: 20 Blood Pressure: 124/86 SpO2: 96 Height: 5 ft 11 in Weight: 136.985 kg BMI: Neck Circumference: 19
== END ==
LOC: 3 N SLEEP 10:52
PROVIDERS: ATTEND Internal Medicine
DX: G47.33 Obstructive sleep apnea (adult) (pediatric) (principal); E66.9 Obesity, unspecified; R73.03 Prediabetes; F17.200 Nicotine dependence, unspecified, uncomplicated; Z98.890 Other specified postprocedural states; Z90.89 Acquired absence of other organs; Z90.49 Acquired absence of other specified parts of digestive tract; Z68.41 Body mass index [BMI] 40.0-44.9, adult; Z79.84 Long term (current) use of oral hypoglycemic drugs; Z87.19 Personal history of other diseases of the digestive system
CPT/HCPCS: 99211

== ENCOUNTER 2024-04-22 19:13 | Outpatient (CLI) | payer OTHER ==
--- NOTE | 2024-04-25 11:11 | P.PCN ---
Description of Procedure: POLYSOMNOGRAPHY REPORT PROCEDURE(S)/DATE(S): Polysomnography 04/22/2024 CLINICAL: Patient has been seen in the sleep center for evaluation of obstructive sleep apnea-hypopnea syndrome. Please see my consultation. Sleep study has been done for evaluation of patient breathing during the sleep. PROCEDURE: The standard montage for clinical polysomnography included the electroencephalogram, the electrooculogram, the mentalis surface electromyography and Lead II cardiography. The respiratory battery consisted of measurements of nasal/buccal air flow, pressure transducer measurements from nose, thoracic and/or abdominal effort and intercostal surface electromyography. Video monitoring has been done to check for any parasomnia events. Nocturnal oxyhemoglobin saturations were obtained by finger oximetry. Step-palacios titration with positive airway pressure was utilized to control the respiratory events, if necessary. RESULTS: During the diagnostic sleep study sleep efficiency was significantly decreased to 56.8%. Latency to sleep onset was significantly prolonged to 38.0 min. Sleep architecture showed stage NI was extremely high 29.7%, Delta sleep was slightly short 3.4%, REM sleep was normal 24.8%. Respiratory channel showed 0 obstructive apneas, 0 mixed apneas, 0 central apneas, 76 hypopneas with lowest oxygen level 76%. Total apnea hypopnea index was 16.5. Heart rate was in the range between 66 and 77, average 71. EMG showed 27.4 periodic limb movements per hour with 0 micro-arousals per hour. IMPRESSIONS: 1. Moderate obstructive sleep apnea hypopnea syndrome. 2. Periodic limb movements have been documented. Please see other impressions from consultation PLAN: 1. The patient will have PAP titration for correction of respiratory abnormalities during the sleep. 2. Losing weight program. 3. Sleep hygiene with regular time in bed for at least 7-1/2 hours. 4. No driving if feeling sleepiness. 5. Please check iron profile including ferritin level. Low level of iron may increase the risk for periodic limb movements. Thank you very much for allowing me to participate in the management of your patient. Sincerely, Matthew Nelson MD, PhD, FAASM. Diplomat of [place] [employer], Sleep Medicine Board by [place] [employer] [facility] [employer] [place] cc: Nilsa Rand MD
== END 2024-04-23 17:04 | disposition home or self-care (01) ==
LOC: 3 N SLEEP 19:13
PROVIDERS: ATTEND Internal Medicine
DX: G47.33 Obstructive sleep apnea (adult) (pediatric) (principal); G47.61 Periodic limb movement disorder; F17.210 Nicotine dependence, cigarettes, uncomplicated
CPT/HCPCS: 95810

== ENCOUNTER → 2024-07-17 | Outpatient (CLI) | payer OTHER ==
[2024-07-17 12:46] LABS: Basophils # (A) 0.06 X 10*3/uL (0.00-0.10); Basophils % (A) 0.9 %; Eosinophils # (A) 0.19 X 10*3/uL (0.04-0.35); Eosinophils % (A) 2.8 %; HCT 49.2 % (39.6-50.0); HGB 16.6 g/dL (13.0-17.0); Lymphocytes % (A) 22.4 %; MCH 31.1 pg (27.0-32.0); MCHC 33.7 g/dL (32.0-37.0); MCV 92.1 FL (80.0-97.0); Mean Platelet Volume 9.7 FL (9.5-12.2); Monocytes # (A) 0.86 X 10*3/uL (0.20-1.00); Monocytes % (A) 12.8 %; NRBC Per 100 WBC 0 X 10*3/uL (0.00-0.01); Neutrophils # (A) 4.06 X 10*3/uL (1.80-7.70); Neutrophils % (A) 60.5 %; Platelet Count 254 X 10*3/uL (140-440); RBC 5.34 X 10*6/uL (4.40-5.60); RDW 13.4 % (11.5-14.5); WBC 6.71 X 10*3/uL (4.50-10.00)
[2024-07-17 13:00] LABS: ALT 123 U/L (10-49); AST 74 U/L (14-35); Albumin 4.4 g/dL (3.8-4.9); Albumin/Globulin Ratio 1.76 Ratio (1.60-3.17); Alkaline Phosphatase 88 U/L (41-126); BUN/Creat Ratio 23.11 Ratio (12.00-20.00); Blood Urea Nitrogen 20.8 mg/dL (9.0-27.0); Calcium 9.4 mg/dL (8.7-10.3); Carbon Dioxide 25.8 mmol/L (21.6-31.8); Chloride 104 mmol/L (96-109); Globulin 2.5 g/dL (1.6-3.3); Glucose 96 mg/dL (70-110); Potassium 4.6 mmol/L (3.5-5.5); Sodium 142 mmol/L (135-145); Total Bilirubin 0.5 mg/dL (0.3-1.2); Total Protein 6.9 g/dL (6.2-8.2)
== END | disposition home or self-care (01) ==
LOC: LABWHC1 07:17
PROVIDERS: ATTEND Nurse Practitioner Family
DX: R74.8 Abnormal levels of other serum enzymes (principal)
CPT/HCPCS: 36415; 80053; 85025

== ENCOUNTER → 2024-10-30 | Outpatient (CLI) | payer OTHER | END | disposition home or self-care (01) | LOC: LABWHC1 07:10 | PROVIDERS: ATTEND Nurse Practitioner Family | DX: R19.7 Diarrhea, unspecified (principal); R74.8 Abnormal levels of other serum enzymes | CPT/HCPCS: 83630; 87045; 87046; 87324 ==

== ENCOUNTER 2024-11-13 19:21 | Outpatient (CLI) | payer OTHER | END 2024-11-13 20:30 | disposition home or self-care (01) | LOC: 3 N SLEEP 19:21 | PROVIDERS: ATTEND Internal Medicine | DX: Z53.9 Procedure and treatment not carried out, unspecified reason (principal) ==

== ENCOUNTER 2024-11-13 20:28 | Emergency (ER) | payer OTHER ==
[2024-11-13 20:36] VITALS: BP 139/87; PULSE 93; RESP 18; TEMP 97.9
--- NOTE | 2024-11-13 20:50 | ED ---
Abdominal Pain HPI - General Chief Complaint: Abdominal Pain Stated Complaint: Abd Pain Time Seen by Provider: 11/13/24 20:48 Source: patient, RN notes reviewed Mode of arrival: wheelchair Limitations: no limitations - History of Present Illness Initial Comments: 49-year-old male presents emergency department complaint of abdominal pain. Patient states he was having a sleep study when he laid down and developed this midepigastric abdominal comfort denies chest pain shortness of breath he states there is a lump in his abdomen states it is very painful. Patient had multiple prior abdominal surgeries with no history of issues like this in the past. Patient denies flank pain no fevers. - Related Data Home Medications Medication Instructions Recorded Confirmed Acetaminophen Tab [Tylenol] 650 mg PO Q6H PRN 01/25/24 Atorvastatin [Lipitor] 20 mg PO DAILY 01/25/24 metFORMIN HCL ER [Glucophage XR] 500 mg PO HS 01/25/24 04/02/24 Semaglutide [Wegovy] 0.25 mg SQ 04/02/24 Previous Rx's Medication Instructions Recorded Ibuprofen [Motrin] 600 mg PO Q6HR PRN #40 tab 10/17/23 Allergies Allergy/AdvReac Type Severity Reaction Status Date / Time No Known Allergies Allergy Verified 01/25/24 10:27 Review of Systems ROS Statement: Those systems with pertinent positive or pertinent negative responses have been documented in the HPI. ROS Other: All systems not noted in ROS Statement are negative. Past Medical History Past Medical History: COPD, Memory Impairment, Osteoarthritis (OA) Additional Past Medical History / Comment(s): HX OF fx's- LEFT ORBITAL ,ribs,lt hand, lt wrist as child, lt ankle fatty liver. Patient has a history of headaches and fainting for the past year. some memory loss, p donates plasma 1-2 times a week. History of Any Multi-Drug Resistant Organisms: None Reported Past Surgical History: Adenoidectomy, Cholecystectomy, Orthopedic Surgery, Tonsillectomy Additional Past Surgical History / Comment(s): 01/2015 LEFT ORBIT PLATES AT [facility], 11/25/08 pins and plates to left ankle after a fall injury, L knee arthroscopy, "wandering" left eye surgically repaired. TILT TABLE TEST 16. vaso vagal from stress per neurologist Past Anesthesia/Blood Transfusion Reactions: No Reported Reaction Additional Past Anesthesia/Blood Transfusion Reaction / Comment(s): Pt has never received blood. Past Psychological History: Depression Smoking Status: Current every day smoker Past Alcohol Use History: Rare Past Drug Use History: Marijuana - Past Family History Brother(s) Additional Family Medical History / Comment(s): He has one brother which he has no contact with. Father Family Medical History: COPD, Coronary Artery Disease (CAD) Additional Family Medical History / Comment(s): Father at age 73yrs. Mother Family Medical History: Seizure Disorder Additional Family Medical History / Comment(s): Mother was manic/depressive. She at age 51yrs. General Exam Limitations: no limitations General appearance: alert, in no apparent distress Head exam: Present: atraumatic, normocephalic, normal inspection Eye exam: Present: normal appearance, PERRL, EOMI. Absent: scleral icterus, conjunctival injection, periorbital swelling Neck exam: Present: normal inspection. Absent: tenderness, meningismus, lymphadenopathy Respiratory exam: Present: normal lung sounds bilaterally. Absent: respiratory distress, wheezes, rales, rhonchi, stridor Cardiovascular Exam: Present: regular rate, normal rhythm, normal heart sounds. Absent: systolic murmur, diastolic murmur, rubs, gallop, clicks GI/Abdominal exam: Present: soft, distended, tenderness, normal bowel sounds. Absent: guarding, rebound, rigid Course Vital Signs 11/13/24 20:31 Temperature 97.9 F Pulse Rate 93 Respiratory 18 Rate Blood Pressure 139/87 O2 Sat by Pulse 96 Oximetry Medical Decision Making - Medical Decision Making Patient left AGAINST MEDICAL ADVICE from the waiting room. - Lab Data Result diagrams: 11/13/24 21:19 11/13/24 21:19 Lab Results 11/13/24 11/13/24 11/13/24 Range/Units 21:19 21:19 21:19 WBC 8.12 (4.50-10.00) 10*3/uL RBC 4.89 (4.40-5.60) 10*6/uL Hgb 16.0 (13.0-17.0) g/dL Hct 45.4 (39.6-50.0) % MCV 92.8 (80.0-97.0) fL MCH 32.7 H (27.0-32.0) pg MCHC 35.2 (32.0-37.0) g/dL Plt Count 222 (140-440) 10*3/uL MPV 9.2 L (9.5-12.2) fL Immature Gran % (Auto) 0.6 % Neutrophils % 70.7 % Lymphocytes % 16.4 % Monocytes % 10.3 % Eosinophils % 1.4 % Basophils % 0.6 % Immature Gran # 0.05 H (0.00-0.04) 10*3/uL Neutrophils # 5.74 (1.80-7.70) 10*3/uL Lymphocytes # 1.33 (0.90-5.00) 10*3/uL Monocytes # 0.84 (0.20-1.00) 10*3/uL Eosinophils # 0.11 (0.04-0.35) 10*3/uL Basophils # 0.05 (0.00-0.10) 10*3/uL Sodium 139 (137-145) mmol/L Potassium 5.1 (3.5-5.1) mmol/L Chloride 105 (98-107) mmol/L Carbon Dioxide 24 (22-30) mmol/L Anion Gap 10 mmol/L BUN 16 (9-20) mg/dL Creatinine 0.83 (0.66-1.25) mg/dL Est GFR (CKD-EPI)AfAm >90 (>60 ml/min/1.73 sqM) Est GFR (CKD-EPI)NonAf >90 (>60 ml/min/1.73 sqM) Glucose 118 H (74-99) mg/dL Plasma Lactic Acid Devon 1.3 (0.7-2.0) mmol/L Calcium 9.0 (8.4-10.2) mg/dL Total Bilirubin 1.0 (0.2-1.3) mg/dL AST 93 H (17-59) U/L ALT 130 H (4-49) U/L Alkaline Phosphatase 55 (38-126) U/L Total Protein 7.2 (6.3-8.2) g/dL Albumin 4.5 (3.5-5.0) g/dL Lipase 69 (23-300) U/L Disposition Clinical Impression: Abdominal pain Disposition: LEFT AGAINST MEDICAL ADVICE Condition: Fair Referrals: Nilsa Rand MD [Primary Care Provider] - 1-2 days
[2024-11-13 21:38] LABS: Basophils # (A) 0.05 10*3/uL (0.00-0.10); Basophils % (A) 0.6 %; Eosinophils # (A) 0.11 10*3/uL (0.04-0.35); Eosinophils % (A) 1.4 %; HCT 45.4 % (39.6-50.0); HGB 16.0 g/dL (13.0-17.0); Lymphocytes # (A) 1.33 10*3/uL (0.90-5.00); Lymphocytes % (A) 16.4 %; MCH 32.7 pg (27.0-32.0); MCHC 35.2 g/dL (32.0-37.0); MCV 92.8 fL (80.0-97.0); Monocytes # (A) 0.84 10*3/uL (0.20-1.00); Monocytes % (A) 10.3 %; Neutrophils # (A) 5.74 10*3/uL (1.80-7.70); Neutrophils % (A) 70.7 %; Platelet Count 222 10*3/uL (140-440); RBC 4.89 10*6/uL (4.40-5.60); RDW 12.8 % (11.5-14.5); WBC 8.12 10*3/uL (4.50-10.00)
[2024-11-13 21:57] LABS: ALT 130 U/L (4-49); African American GFR (CKD) >90 (>60 ml/min/1.73 sqM); Anion Gap 10 mmol/L; Blood Urea Nitrogen 16 mg/dL (9-20); Calcium 9.0 mg/dL (8.4-10.2); Carbon Dioxide 24 mmol/L (22-30); Chloride 105 mmol/L (98-107); Glucose 118 mg/dL (74-99); Lipase 69 U/L (23-300); Non-African American GFR(CKD) >90 (>60 ml/min/1.73 sqM); Sodium 139 mmol/L (137-145)
[2024-11-13 22:03] LABS: AST 93 U/L (17-59); Albumin 4.5 g/dL (3.5-5.0); Alkaline Phosphatase 55 U/L (38-126); Potassium 5.1 mmol/L (3.5-5.1); Total Protein 7.2 g/dL (6.3-8.2)
--- NOTE | 2024-11-13 23:00 | CT ---
EXAMINATION TYPE: CT abdomen pelvis w con DATE OF EXAM: 11/13/2024 10:35 PM COMPARISON: None. CLINICAL INDICATION: Male, 49 years old with history of abdominal pain, ABDOMINAL CRAMPING AND KNOTS IN STOMACH STARTED TONIGHT WHILE PT GETTING READY FOR SLEEP STUDY TECHNIQUE: Axial images were obtained from above the diaphragm to the pubic rami in the axial plane a t 5 mm thick sections. Reconstructed images are reviewed on the computer in the coronal plane. CONTRAST: 100 ml mL of Isovue 300. Study performed without Oral Contrast DLP: 2401.3 mGycm, Automated exposure control for dose reduction was used. FINDINGS: Limited CT sections are obtained the lung bases. The lung bases are clear. CT ABDOMEN: Stomach is distended with debris. Umbilical hernia with mesenteric fat is present. Liver: Normal Spleen: Normal Pancreas: Normal Adrenal glands: The adrenal glands are normal. Gallbladder: Surgically absent Kidneys: No masses are evident. No hydronephrosis is present. No cysts are present. Delayed images were obtained through the kidneys, which remain unremarkable. Aorta: Normal Inferior vena cava: Normal. CT PELVIS: No free fluid is within the abdomen or pelvis. No free air is evident. Loops of bowel within the abdomen and pelvis are normal. Few scattered diverticuli within the sigmoi d colon. Study is without oral contrast limits bowel evaluation. Appendix: Normal as visualized. Urinary bladder: Normal. Genitourinary structures: Prostate is normal Osseous structures: No suspicious lytic or sclerotic lesions. IMPRESSION: 1. No suspicious abnormality to account for abdominal pain. [facility], , 11/13/2024 10:57 PM
== END 2024-11-13 23:50 | disposition left against medical advice (07) ==
LOC: EC 20:28
DX: R10.13 Epigastric pain (principal); F17.200 Nicotine dependence, unspecified, uncomplicated; Z53.29 Procedure and treatment not carried out because of patient's decision for other reasons
CPT/HCPCS: 36415; 80053; 83605; 83690; 85025; 74177; 99284; Q9967